=== PATIENT | female | born 1970 | race Caucasian/White ===

== ENCOUNTER 2019-02-19 12:57 | Emergency (ER) | payer SELFPAY ==
--- OUTSIDE RECORDS SUMMARY | 2019-02-19 12:59 | XMS REPORT ---
:1970 [facility] Address [address] [place] [address] Dr. Vasquez [address] [place] [id number] Care Team Providers Name Role Phone Unavailable Unavailable Unavailable Problems This patient has no known problems. Allergies, Adverse Reactions, Alerts This patient has no known allergies or adverse reactions. Medications This patient has no known medications.
[2019-02-19] MEDS ORDERED: NA CHLORIDE 0.9% 1,000 ML IV SCH (13:46)
[2019-02-19] MEDS ORDERED: ONDANSETRON 4 MG/2 ML VIAL IV ONE (13:46)
[2019-02-19] MEDS ORDERED: MORPHINE 4 MG/ML SYR IV ONE (13:46)
[2019-02-19 14:15] LABS: Urine Blood NEGATIVE (NEG); Urine Glucose NEGATIVE (NEG); Urine Protein NEGATIVE (NEG); Urine Specific Gravity 1.005 (1.005-1.030); Urine pH 6.5 (5.0-7.0)
[2019-02-19 14:33] LABS: Absolute Monocytes 0.9 K/uL (0.1-1.3); Absolute Neutrophil 8.7 K/uL (1.8-8.0); Basophils % 1.1 % (0-1.3); Hematocrit 49.9 % (36.0-45.0); Lymphocytes % 16.3 % (15.3-44.8); MPV 8.3 fL (7.6-11.3); Monocytes % 7.1 % (3.3-12.3); RBC Red Blood Cell Count 5.42 M/uL (3.86-4.86)
[2019-02-19 14:49] LABS: Urine Bacteria <20 /HPF (<20); Urine Culture Reflex Order NOT NEEDED; Urine RBC <5 /HPF (NONE SEEN)
[2019-02-19 14:50] LABS: ALT/SGPT 29 U/L (12-78); AST/SGOT 18 U/L (15-37); Albumin 3.9 g/dL (3.4-5.0); Alkaline Phosphatase 81 U/L (45-117); BUN Blood Urea Nitrogen 20 mg/dL (7-18); Bicarbonate 27 mmol/L (21-32); Bilirubin Direct < 0.1 mg/dL (0-0.2); Bilirubin Total 0.3 mg/dL (0.2-1.0); Glucose Level 77 mg/dL (74-106); Lipase 98 U/L (73-393); Potassium 4.1 mmol/L (3.5-5.1); Protein, Total 7.7 g/dL (6.4-8.2); Sodium Level 140 mmol/L (136-145)
[2019-02-19] MEDS ORDERED: MORPHINE 4 MG/ML SYR ONE (15:02)
--- NOTE | 2019-02-19 15:26 | RAD REPORT ---
EXAM DESCRIPTION: CT - Abdomen Pelvis W Contrast - 02/19/2019 3:04 pm CLINICAL HISTORY: Abdominal pain with nausea. COMPARISON: 2006 TECHNIQUE: Computed axial tomography of the abdomen pelvis was obtained. 100 cc Isovue-300 was admin istered intravenously. Oral contrast was not requested which limits evaluation of bowel. All CT scans are performed using dose optimization technique as appropriate and may include automated exposure control or mA/KV adjustment according to patient size. FINDINGS: 3.2 centimeter cyst left lobe liver The Spleen, pancreas, adrenal and kidneys appear unremarkable. There is no evidence of diverticulitis. Small umbilical hernia contains fat Appendix not clearly seen. Evaluation is limited signal lack of oral contrast IMPRESSION: No acute abnormality is displayed.
--- NOTE | 2019-02-19 18:36 | RAD REPORT ---
EXAM DESCRIPTION: CT - Abdomen Pelvis Wo Contrast - 02/19/2019 6:19 pm CLINICAL HISTORY: Abdominal pain COMPARISON: February 19, [address] TECHNIQUE: Computed axial tomography of the abdomen and pelvis was obtained. IV was not requested. O ral contrast was given. Coronal reconstructions performed. All CT scans are performed using dose optimization technique as appropriate and may include automated exposure control or mA/KV adjustment according to patient size. FINDINGS: The evaluation of solid organs and vessels is limited secondary to the lack of contrast a dministration. 3.2 centimeter hepatic cyst Spleen, pancreas, adrenals and kidneys appear grossly normal. The appendix is normal. There is no evidence of diverticulitis. A 13 millimeter cystic structure anterior to the right psoas within the upper pelvis is unchanged fro m 2006 consistent with a benign cyst IMPRESSION: No acute abnormality is displayed.
--- NOTE | 2019-02-19 19:03 | EDPHYS ---
Physician Documentation [facility] Name: Felisha Laird Age: 48 yrs Sex: Female : 1970 Arrival Date: 02/19/2019 Time: 13:00 Bed 20 Private MD: ED Physician Keith Nayak HPI: 02/19 14:00 This 48 yrs old Female presents to ER via Ambulatory with complaints of Right pm1 flank pain. 14:00 The patient presents with pain that is acute. The symptoms are located in the right low pm1 back. Onset: The symptoms/episode began/occurred 4 day(s) ago. The pain radiates to the right inguinal area. Associated signs and symptoms: Pertinent positives: decreased urinary amount with frequency, Pertinent negatives: chest pain, dysuria, fever, sob. The problem was sustained from unknown cause. Modifying factors: The patient symptoms are alleviated by nothing, the patient symptoms are aggravated by nothing. Severity of symptoms: in the emergency department the symptoms are actually worse. The patient has not experienced similar symptoms in the past. The patient has not recently seen a physician. Historical: - Allergies: 13:20 Demerol; ss 13:20 tramadol; ss - PMHx: 13:20 chiari I malformation; High Cholesterol; Hypertension; L inner leg good blood flow, ss outer not good blood flow; Migraines; osteoarthritis; - PSHx: 13:20 ; Left eye surgery; Right finger surgery; ovary lap; toe surg; ss - Immunization history:: Adult Immunizations up to date. - Social history:: Smoking status: Patient uses tobacco products, smokes one-half pack cigarettes per day. - Ebola Screening: : Patient denies exposure to infectious person Patient denies travel to an Ebola-affected area in the 21 days before illness onset. ROS: 14:00 Constitutional: Negative for fever, chills, and weight loss, Eyes: Negative for injury, pm1 pain, redness, and discharge, ENT: Negative for injury, pain, and discharge, Neck: Negative for injury, pain, and swelling, Cardiovascular: Negative for chest pain, palpitations, and edema, Respiratory: Negative for shortness of breath, cough, wheezing, and pleuritic chest pain, Abdomen/GI: Negative for abdominal pain, nausea, vomiting, diarrhea, and constipation. 14:00 MS/Extremity: Negative for injury and deformity, Skin: Negative for injury, rash, and discoloration, Neuro: Negative for headache, weakness, numbness, tingling, and seizure. 14:00 Back: Positive for flank pain, on the right. 14:00 : Positive for flank pain, urinary frequency, small amounts, Negative for vaginal discharge. Exam: 14:00 Constitutional: This is a well developed, well nourished patient who is awake, alert, pm1 and in no acute distress. Head/Face: Normocephalic, atraumatic. Eyes: Pupils equal round and reactive to light, extra-ocular motions intact. Lids and lashes normal. Conjunctiva and sclera are non-icteric and not injected. Cornea within normal limits. Periorbital areas with no swelling, redness, or edema. ENT: Nares patent. No nasal discharge, no septal abnormalities noted. Tympanic membranes are normal and external auditory canals are clear. Oropharynx with no redness, swelling, or masses, exudates, or evidence of obstruction, uvula midline. Mucous membranes moist. Neck: Trachea midline, no thyromegaly or masses palpated, and no cervical lymphadenopathy. Supple, full range of motion without nuchal rigidity, or vertebral point tenderness. No Meningismus. Chest/axilla: Normal chest wall appearance and motion. Nontender with no deformity. No lesions are appreciated. Cardiovascular: Regular rate and rhythm with a normal S1 and S2. No gallops, murmurs, or rubs. Normal PMI, no JVD. No pulse deficits. Respiratory: Lungs have equal breath sounds bilaterally, clear to auscultation and percussion. No rales, rhonchi or wheezes noted. No increased work of breathing, no retractions or nasal flaring. 14:00 Skin: Warm, dry with normal turgor. Normal color with no rashes, no lesions, and no evidence of cellulitis. MS/ Extremity: Pulses equal, no cyanosis. Neurovascular intact. Full, normal range of motion. 14:00 Abdomen/GI: Inspection: abdomen appears normal, Bowel sounds: normal, Palpation: soft, mild abdominal tenderness, in the right lower quadrant, mass, is not appreciated, rebound tenderness, is not appreciated. 14:00 Back: pain, that is mild, of the right low back, normal spinal alignment noted, vertebral tenderness, is not appreciated. 14:00 Neuro: Orientation: is normal, Motor: is normal, moves all fours. Vital Signs: 13:20 BP 160 / 94; Pulse 80; Resp 18; Temp 98.2(O); Pulse Ox 96% on R/A; Weight 81.65 kg; dh3 Height 5 ft. 1 in. (154.94 cm); Pain 8/10; 15:45 BP 157 / 95; Pulse 73; Resp 18; Pulse Ox 99% on R/A; Pain 7/10; em 17:00 BP 141 / 70; Pulse 70; Resp 18; Pulse Ox 99% on R/A; em 18:00 BP 147 / 84; Pulse 76; Resp 18; Pulse Ox 99% ; em 19:10 BP 147 / 87; Pulse 82; Resp 17; Temp 98.4; Pulse Ox 99% ; Pain 6/10; rr5 19:45 BP 141 / 85; Pulse 80; Resp 19; Pulse Ox 99% ; rr5 13:20 Body Mass Index 34.01 (81.65 kg, 154.94 cm) 3 MDM: 13:24 Patient medically screened. pm1 15:40 ED course: Appendix not visualized by radiologist with CT ABD/Pelvis. Patient with pm1 right flank pain radiating to right groin area. WBC 12.0 Therefore I will order PO contrast CT exam to evaluate appendix. 16:33 Data reviewed: vital signs. Data interpreted: Pulse oximetry: on room air is 99 %. pm1 Interpretation: normal. 18:59 ED course: Appendix is normal. Informed patient of incidental 13 mm cyst anterior to pm1 right psoas within right upper pelvis is unchanged from 2006. Patient now reports that her pain started after bending and lifting. Possibly cause musculoskeletal and/or related to cyst . 19:02 Counseling: I had a detailed discussion with the patient and/or guardian regarding: the pm1 historical points, exam findings, and any diagnostic results supporting the discharge/admit diagnosis, lab results, radiology results, the need for outpatient follow up, to return to the emergency department if symptoms worsen or persist or if there are any questions or concerns that arise at home. 02/19 13:27 Order name: Basic Metabolic Panel; Complete Time: 15:02 pm1 02/19 13:27 Order name: CBC with Diff; Complete Time: 15:02 pm1 02/19 13:27 Order name: Creatinine for Radiology; Complete Time: 15:02 pm1 02/19 13:27 Order name: Hepatic Function; Complete Time: 15:02 pm1 02/19 13:27 Order name: Lipase; Complete Time: 15:02 pm1 02/19 13:27 Order name: Urine Microscopic Only; Complete Time: 15:02 pm1 02/19 13:27 Order name: CT Abd/Pelvis - IV Contrast Only; Complete Time: 15:32 pm1 02/19 13:56 Order name: Urine Dipstick--Ancillary (enter results); Complete Time: 15:02 eb 02/19 13:56 Order name: Urine --Ancillary (enter results); Complete Time: 15:02 eb 02/19 15:38 Order name: CT Abd/Pelvis - PO Contrast Only pm1 02/19 15:46 Order name: Abdomen ; Complete Time: 18:43 EDMS 02/19 13:27 Order name: IV Saline Lock; Complete Time: 14:39 pm1 02/19 13:27 Order name: Labs collected and sent; Complete Time: 14:39 pm1 02/19 13:27 Order name: Urine Dipstick-Ancillary (obtain specimen); Complete Time: 13:58 pm1 Administered Medications: 13:45 Drug: NS 0.9% 1000 ml Route: IV; Rate: 1000 ml; Site: left antecubital; ss 13:45 Drug: morphine 4 mg Route: IVP; Site: left antecubital; ss 14:45 Follow up: Response: No adverse reaction; Pain is unchanged, physician notified em 13:45 Drug: Zofran 4 mg Route: IVP; Site: left antecubital; ss 14:45 Follow up: Response: No adverse reaction; Nausea is decreased em 14:53 Drug: morphine 4 mg Route: IVP; Site: left antecubital; em 15:57 Follow up: Response: No adverse reaction; Pain is decreased em Disposition: 02/20 07:29 Co-signature as Attending Physician, Keith Nayak MD. rn Disposition: 02/19/19 19:03 Discharged to Home. Impression: Low back pain. - Condition is Stable. - Discharge Instructions: Back Pain, Adult, Musculoskeletal Pain. - Prescriptions for Naprosyn 500 mg Oral Tablet - take 1 tablet by ORAL route 2 times per day take with food; 30 tablet. Cyclobenzaprine 10 mg Oral Tablet - take 1 tablet by ORAL route every 8 hours As needed; 30 tablet. - Medication Reconciliation Form, Thank You Letter, Antibiotic Education, Prescription Opioid Use form. - Follow up: Emergency Department; When: As needed; Reason: Worsening of condition. Follow up: Private Physician; When: 2 - 3 days; Reason: Recheck today's complaints, Continuance of care, Re-evaluation by your physician. - Problem is new. - Symptoms have improved. Signatures: Dispatcher [employer] EDMS Miguel Barbosa, TURBO OPERATOR TURBO OPERATOR Keith Ann MD MD rn Smirch, Shelby, RN RN ss Ishan Talamantes NP SETTLEMENT CLERK pm1 Fuad Dawkins RN RN rr5 Corrections: (The following items were deleted from the chart) 02/19 19:51 19:03 02/19/2019 19:03 Discharged to Home. Impression: Low back pain. Condition is rr5 Stable. Forms are Medication Reconciliation Form, Thank You Letter, Antibiotic Education, Prescription Opioid Use. Follow up: Emergency Department; When: As needed; Reason: Worsening of condition. Follow up: Private Physician; When: 2 - 3 days; Reason: Recheck today's complaints, Continuance of care, Re-evaluation by your physician. Problem is new. Symptoms have improved. pm1
--- NOTE | 2019-02-19 19:03 | ER ---
Nurse's Notes [facility] Name: Felisha Laird Age: 48 yrs Sex: Female : 1970 Arrival Date: 02/19/2019 Time: 13:00 Bed 20 Private MD: Diagnosis: Low back pain Presentation: 02/19 13:19 Presenting complaint: Patient states: R low back pain x 4 days. Denies injury. ss Transition of care: patient was not received from another setting of care. Onset of symptoms was February 15, 2019. Risk Assessment: Do you want to hurt yourself or someone else? Patient reports no desire to harm self or others. Initial Sepsis Screen: Does the patient meet any 2 criteria? No. Patient's initial sepsis screen is negative. Does the patient have a suspected source of infection? No. Patient's initial sepsis screen is negative. Care prior to arrival: None. 13:19 Method Of Arrival: Ambulatory ss 13:19 Acuity: TESSA 3 ss Historical: - Allergies: 13:20 Demerol; ss 13:20 tramadol; ss - PMHx: 13:20 chiari I malformation; High Cholesterol; Hypertension; L inner leg good blood flow, ss outer not good blood flow; Migraines; osteoarthritis; - PSHx: 13:20 ; Left eye surgery; Right finger surgery; ovary lap; toe surg; ss - Immunization history:: Adult Immunizations up to date. - Social history:: Smoking status: Patient uses tobacco products, smokes one-half pack cigarettes per day. - Ebola Screening: : Patient denies exposure to infectious person Patient denies travel to an Ebola-affected area in the 21 days before illness onset. Screenin:30 Abuse screen: Denies threats or abuse. Nutritional screening: No deficits noted. em Tuberculosis screening: No symptoms or risk factors identified. Fall Risk None identified. Assessment: 13:30 General: Appears in no apparent distress. uncomfortable, Behavior is calm, cooperative, em Denies fever. Pain: Complains of pain in right low back Pain radiates to abdomen Pain currently is 7 out of 10 on a pain scale. Neuro: Level of Consciousness is awake, alert, obeys commands, Oriented to person, place, time, situation. Cardiovascular: Capillary refill < 3 seconds Patient's skin is warm and dry. Respiratory: Airway is patent Respiratory effort is even, unlabored, Respiratory pattern is regular, symmetrical. GI: Abdomen is flat, Bowel sounds present X 4 quads. Abd is soft X 4 quads Abdomen is tender to palpation in abdomen diffusely Reports nausea. : Denies burning with urination. Derm: Skin is intact, is healthy with good turgor, Skin is pink, warm \T\ dry. Musculoskeletal: Capillary refill < 3 seconds, Range of motion: intact in all extremities. 13:32 General: The previous assessment is accurate, call light remains within reach.. ss 14:52 Reassessment: Patient appears in no apparent distress at this time. Patient and/or em family updated on plan of care and expected duration. Pain level reassessed. Patient is alert, oriented x 3, equal unlabored respirations, skin warm/dry/pink. reports medication did not help, rates pain 7/10. 15:46 Reassessment: Patient appears in no apparent distress at this time. Patient and/or em family updated on plan of care and expected duration. Pain level reassessed. Patient is alert, oriented x 3, equal unlabored respirations, skin warm/dry/pink. rates pain 7/10. 17:00 Reassessment: Patient appears in no apparent distress at this time. Patient and/or em family updated on plan of care and expected duration. Pain level reassessed. Patient is alert, oriented x 3, equal unlabored respirations, skin warm/dry/pink. 18:20 Reassessment: Patient appears in no apparent distress at this time. Patient and/or em family updated on plan of care and expected duration. Pain level reassessed. Patient is alert, oriented x 3, equal unlabored respirations, skin warm/dry/pink. wheeled to CT via wheelchair. 19:10 Reassessment: Patient appears in no apparent distress at this time. Patient and/or rr5 family updated on plan of care and expected duration. Pain level reassessed. awaiting for CT result. Neuro: Level of Consciousness is awake, alert, obeys commands, Oriented to person, place, time, situation. Cardiovascular: Capillary refill < 3 seconds Patient's skin is warm and dry. Respiratory: Airway is patent Respiratory effort is even, unlabored, Respiratory pattern is regular, symmetrical. GI: Abdomen is round. : Denies burning with urination. EENT: No signs and/or symptoms were reported regarding the EENT system. Derm: Skin is intact, Skin is pink, warm \T\ dry. Musculoskeletal: Capillary refill < 3 seconds, Range of motion: intact in all extremities, Reports pain in back. 19:50 Reassessment: Patient appears in no apparent distress at this time. Patient is alert, rr5 oriented x 3, equal unlabored respirations, skin warm/dry/pink. discharge instruction given and explained without complaints made. Vital Signs: 13:20 BP 160 / 94; Pulse 80; Resp 18; Temp 98.2(O); Pulse Ox 96% on R/A; Weight 81.65 kg; dh3 Height 5 ft. 1 in. (154.94 cm); Pain 8/10; 15:45 BP 157 / 95; Pulse 73; Resp 18; Pulse Ox 99% on R/A; Pain 7/10; em 17:00 BP 141 / 70; Pulse 70; Resp 18; Pulse Ox 99% on R/A; em 18:00 BP 147 / 84; Pulse 76; Resp 18; Pulse Ox 99% ; em 19:10 BP 147 / 87; Pulse 82; Resp 17; Temp 98.4; Pulse Ox 99% ; Pain 6/10; rr5 19:45 BP 141 / 85; Pulse 80; Resp 19; Pulse Ox 99% ; rr5 13:20 Body Mass Index 34.01 (81.65 kg, 154.94 cm) 3 ED Course: 13:00 Patient arrived in ED. mr 13:17 Ishan Talamantes NP is PHCP. pm1 13:17 Keith Nayak MD is Attending Physician. pm1 13:20 Triage completed. ss 13:20 Arm band placed on right wrist. ss 13:29 Miguel Barbosa LVN is Primary Nurse. em 13:50 Urine collected: clean catch specimen, jessy colored. dh3 14:00 Patient has correct armband on for positive identification. Placed in gown. Bed in low em position. Adult w/ patient. Pulse ox on. NIBP on. 14:00 Initial lab(s) drawn, by me, sent to lab. Inserted saline lock: 22 gauge in left em antecubital area, using aseptic technique. Blood collected. 14:[address] via wheelchair. em2 14:51 Radiology exam delayed due to lab results not completed at this time. (BUN/Creatinine). ls3 15:03 CT completed. Patient tolerated procedure well. Patient moved back from CT. em2 15:32 CT Abd/Pelvis - IV Contrast Only In Process Unspecified. EDMS 18:18 CT completed. Patient tolerated procedure well. Patient moved to CT. Patient moved back pr from CT. 18:21 Abdomen In Process Unspecified. EDMS 19:50 No provider procedures requiring assistance completed. IV discontinued, intact, rr5 bleeding controlled, No redness/swelling at site. Pressure dressing applied. Administered Medications: 13:45 Drug: NS 0.9% 1000 ml Route: IV; Rate: 1000 ml; Site: left antecubital; ss 13:45 Drug: morphine 4 mg Route: IVP; Site: left antecubital; ss 14:45 Follow up: Response: No adverse reaction; Pain is unchanged, physician notified em 13:45 Drug: Zofran 4 mg Route: IVP; Site: left antecubital; ss 14:45 Follow up: Response: No adverse reaction; Nausea is decreased em 14:53 Drug: morphine 4 mg Route: IVP; Site: left antecubital; em 15:57 Follow up: Response: No adverse reaction; Pain is decreased em Outcome: 19:03 Discharge ordered by MD. pm1 19:50 Discharged to home ambulatory, with family. rr5 19:50 Condition: stable 19:50 Discharge instructions given to patient, Instructed on discharge instructions, follow up and referral plans. medication usage, Demonstrated understanding of instructions, follow-up care, medications, Prescriptions given X 2. 19:51 Patient left the ED. rr5 Signatures: Dispatcher [employer] EDME Basilio Ayaka Barbosa, Miguel, LICENSED LOAN OFFICER ASSISTANT LICENSED LOAN OFFICER ASSISTANT em Matilde Murry, GATO RN ss Baltazar Balbuena em2 Ishan Talamantes, DOLORES CAR ICER pm1 Marcelo Sullivan Deanna 3 Drew Suggs 3 Fuad Dawkins, RN RN rr5 Corrections: (The following items were deleted from the chart) 13:22 13:20 Resp 18bpm; Height 5 ft. 1 in.; Pain 8/10; [facility]
[2019-02-19 20:35] VITALS: TEMP 98.2
[2019-02-19 20:37] VITALS: O2SAT 99
[2019-02-19 20:39] VITALS: BP 147/84
== END 2019-02-19 19:51 | disposition home or self-care (01) ==
LOC: ER 12:57
DX: M54.5 Low back pain (principal); G93.5 Compression of brain; E78.00 Pure hypercholesterolemia, unspecified; I10 Essential (primary) hypertension; Z88.5 Allergy status to narcotic agent; F17.210 Nicotine dependence, cigarettes, uncomplicated
CPT/HCPCS: 36415; 74176; 74177; 80048; 80076; 81003; 81015; 81025; 83690; 85025; 96374; 96375; 99284; J2405; J7030; Q9967

== ENCOUNTER 2020-12-11 10:16 | Day surgery (SDC) | payer SELFPAY ==
[2020-12-11] MEDS ORDERED: Ringers Lactate 1,000 ML IV ONE (10:50)
[2020-12-11] MEDS ORDERED: CEFAZOLIN/SWI 1gm 1 GM/10 ML SYR ONE (10:51)
[2020-12-11] MEDS ORDERED: ACETAMINOPHEN 500 MG TAB ONE (11:09)
[2020-12-11 11:31] LABS: Potassium 3.9 mmol/L (3.5-5.1)
[2020-12-11] MEDS ORDERED: LIDOCAINE 1% MPF 5 ML VIAL ONE (14:09)
[2020-12-11] MEDS ORDERED: propofoL 200 MG/20 ML VIAL IV ONE ×2 (14:09→14:55)
[2020-12-11] MEDS ORDERED: MIDAZOLAM HCL 2 MG/2 ML INJ ONE (14:09)
[2020-12-11] MEDS ORDERED: FENTANYL CITR 100 MCG/2 ML ONE (14:09)
[2020-12-11] MEDS ORDERED: BUPIVACAINE 0.25% PF 10 ML VIAL ONE (14:31)
--- NOTE | 2020-12-11 14:45 | P.OP ---
Preoperative diagnosis: Chronic Osteomyelitis of 4th toe of RIGHT foot Postoperative diagnosis: Chronic Osteomyelitis of 4th toe of RIGHT foot Primary procedure: Amputation of 4th Distal phalanx of RIGHT foot Anesthesia: GETA + Local Estimated blood loss: <1cc Specimen: partial toe amputation Findings: osteomyelitis confined to DIP Complications: None Transferred to: Recovery Room Condition: Good
[2020-12-11] MEDS ORDERED: KETOROLAC 30 MG/ML INJ ONE (14:51)
[2020-12-11] MEDS ORDERED: dexAMETHasone 10 MG/ML VIAL ONE (14:51)
[2020-12-11] MEDS ORDERED: ONDANSETRON 4 MG/2 ML VIAL ONE (14:55)
[2020-12-11 16:39] VITALS: BP 123/81; TEMP 97; O2SAT 99
--- NOTE | 2020-12-12 00:52 | OP ---
Date of Procedure: 12/11/2020 Surgeon: Diaz Gaston MD, Preoperative Diagnosis: Chronic osteomyelitis of the fourth toe of the right foot. Postoperative Diagnosis: Chronic osteomyelitis of the fourth toe of the right foot. Procedure Performed: An amputation of the fourth distal phalanx of the right foot. Anesthesia: General endotracheal plus local with 0.25% Marcaine without epinephrine. Estimated Blood Loss: Less than 5 cc. Specimen: Partial toe amputation/distal phalanx. Findings: Osteomyelitis confined to the distal interphalangeal space and distal phalanx. No involve ment of the proximal phalanx. Disposition: The patient transferred to recovery room in good condition. Procedure In Detail: After informed consent was obtained, the patient was brought to the operating r oom, prepped and draped in the usual sterile fashion after adequate anesthesia was achieved. I anest hetized the area around the fourth toe of the right foot. I then marked the area for amputation base d on a plantar flap circumferentially around with a 15 blade. I then used electrocautery to dissect down to the interphalangeal joint. I removed the tendons and soft tissue at this plane and sent the toe off for pathologic examination. Hemostasis was achieved with electrocautery. I then irrigated t he area copiously. There was no evidence osteomyelitis of the proximal interphalangeal joint. As alcala ch, I reapproximated the tissue based on the plantar flap using interrupted 3-0 nylon sutures and a s terile dressing was placed over top. The patient tolerated the procedure well without evidence of co mplication and transferred to PACU in good condition. All counts were correct at the end of the case . TK/MODL Voice ID: [id number] Report ID: [id number]
== END 2020-12-11 17:05 | disposition home or self-care (01) ==
LOC: OR 10:16
PROVIDERS: ATTEND Surgery
PROC: 0Y6V0Z3 Detachment at Right 4th Toe, Low, Open Approach (ICD-10-PCS; principal; 2020-12-11 13:15)
DX: M86.671 Other chronic osteomyelitis, right ankle and foot (principal); F17.210 Nicotine dependence, cigarettes, uncomplicated; I10 Essential (primary) hypertension; Z86.73 Personal history of transient ischemic attack (TIA), and cerebral infarction without residual deficits; Z20.822 Contact with and (suspected) exposure to COVID-19
CPT/HCPCS: 36415; 80048; 88305; 88311; J0690; J1100; J2250; J2405; J2704; J3010; J7120; U0002

== ENCOUNTER → 2023-10-16 | Emergency (ER) | payer OTHER ==
[~2023-10-16] MED LIST: HYDROCODONE/APAP 7.5/325 MG TAB ONE; IBUPROFEN 200 MG TAB PO ONE
--- OUTSIDE RECORDS SUMMARY | 2023-10-16 15:58 | XMS REPORT | Continuity of Care Document ---
Author Name Unknown Address [address] [facility]. [address] [place] [address] [facility] Address [address] [facility] [address] [place] [address] Care Team Providers Care Mitten Stitcher Name Role Phone Rupesh Braxton Primary Care Physician [phone] CAMDEN SINGH Attending Clinician Unavailable Rupesh Braxton Attending Clinician [phone] Doctor Unassigned, [place] Attending Clinician U navailable RUPESH XIONG Attending Clinician Unavailable Melida Sommer RN Attending Clinician UnavailShan Priest MD Attending Clinician [phone] SHAN GONCALVES Attending Clinician UnavailMARIN Fernandez Attending Clinician Unavailable BOBBY HERNANDEZ Attending Clinician Unavailable Bobby Alexander Attending Clinician [phone] Unknown, Attending Attending Clinician Unavailab DAVID Stark Attending Clinician Unavailjuvenal Singh MD, [place] Attending Clinician [phone] Rachel Conklin RN Attending Clinician Unav Moises Herrera Attending Clinician [phone] MOISES OLEA Attending Clinician Unavailable Gunnar TOHRNTON, Marin Attending Clinician [phone] [facility] Attending Clinician Unavailable Myrtle THORNTON, Alma Delia Attending Clinician Unavailab liliya Cm, Maximil[facility] Main Attending Clinician UnavailSHAN Priest Attending Clinician Unavailkyle Buckner MD, Izaiah Attending Clinician [phone] Marizol Lenz Attending Clinician Unavaila khushboo Stauffer CLERICAL RECEPTIONIST, Alayna L Attending Clinician [phone] NIMSIRI ALAYNA Sherlyn Attending Clinician Unavailable Meliza Sharp Attending Clinician U THIAGO Giron Attending Clinician Unavailable Mila CAST, Niecy Govea Attending Clinician AXEL Ariza Attending Clinician Unavailable AXEL STOCKTON Attending Clinician Unavailable CHRISS GUALLPA Attending Clinician Unavail able CHRISS GUALLPA Attending Clinician Unavail able Nydia Mckay Attending Clinician [phone] Chriss Guallpa MD Attending Clinician [phone] Lab, Nirmal - Jayro Attending Clinician Unavailable JACINTO MANTILLA Attending Clinician UnavailBerna SHARP, Jaxson Attending Clinician [phone] Alysha Oropeza Attending Clinician [phone] JAXSON SIMMS Attending Clinician Unavailable Freddy THORNTON, Benny Lindo Attending Clinician [phone] Jeferson MCNEIL, [facility] Attending Clinician [phone] UNKNOWN, ATTENDING Attending Clinician Unavailab LANETTE Lawton Attending Clinician Unavailable Laentte Augustin Attending Clinician [phone] ADÁN RIOS Attending Clinician Unavailable TONIA ASKEW Attending Clinician UnavailTonia Barahona MD Attending Clinician [phone] Fernando Henderson Attending Clinician [phone] FERNANDO AL Attending Clinician Unavailable Elver Carter MD Attending Clinician Nirmal Klein Attending Clinician UnavailSidra Castañeda Attending Clinician [phone] SIDRA BENITES Attending Clinician Unavailable Care, Hima Primary Attending Clinician Unavailkyle Hdz RN, Ayaka Childs Attending Clinician [phone] Robyn CORONADOW, Madhu Lee Attending Clinician Unavail able Lena Tanner Attending Clinician [phone] HUNG BILLINGS Attending Clinician Unavailable Ishan Martinez MD Attending Clinician [phone] Tyesha THORNTON, Hung Attending Clinician [phone] RUPESH XIONG Admitting Clinician Unavailable ALAYNA STAUFFER Admitting Clinician Unavailable MARIN MAHER Admitting Clinician Unavailable FERNANDO AL Admitting Clinician Unavailable HUNG BILLINGS Admitting Clinician Unavailable Tyesha THORNTON, Hung Admitting Clinician [phone] Payers Payer Name Policy Type Policy Number Effective Date Expirati on Date Source [facility] DUAL COMPLETE [id number] 2023 00:00:00 [place] [id number] 2022 00:00:00 MEDICAID 365 VENDOR [id number] 2021 00:00:00 2021 00:00:00 Problems Condition Name Condition Details Condition Category Status Onset Date Resolution Date Last Treatment Date Treating Clinician Comments Source Myelofibro sis Myelofibro sis Disease Active 4-21 00:00: 00 [facility] JAK2 gene mutation JAK2 gene mutation Disease Active 9-20 00:00: 00 [facility] Left-sided weakness Left-sided weakness Disease Active - 00:00: 00 [facility] Weakness of right upper extremity Weakness of right upper extremity Disease Active 9- 00:00: 00 [facility] Weakness of right upper extremity Weakness of right upper extremity Disease Active - 00:00: 00 [facility] Elevated platelet count Elevated platelet count Disease Active 3-24 00:00: 00 [facility] Neuropathy Neuropathy Disease Active 2020-09 0-12 00:00: 00 [facility] Obesity (BMI 30-39.9) Obesity (BMI 30-39.9) Disease Active 01-26 00:00: 00 [facility] Left sided numbness Left sided numbness Disease Active 01-25 00:00: 00 [facility] Osteoarthr osis Osteoarthr osis Disease Active 10-09 00:00: 00 [facility] Migraine Migraine Disease Active 10-09 00:00: 00 [facility] Hyperchole sterolemia Hyperchole sterolemia Disease Active 10-09 00:00: 00 [facility] 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 Disease Active 12-01 00:00: 00 [facility] Blindness of left eye Blindness of left eye Disease Active 12-01 00:00: 00 [facility] Essential thrombocyt hemia Essential thrombocyt hemia Disease Active 12-01 00:00: 00 [facility] Hypertensi ve disorder Hypertensi ve disorder Disease Active 12-01 00:00: 00 [facility] COPD exacerbati on COPD exacerbati on Disease Active 11-27 00:00: 00 [facility] Pneumonia Pneumonia Disease Active 11-26 00:00: 00 [facility] Allergies, Adverse Reactions, Alerts Allergy Name Allergy Type Status Severity Reaction(s) Onset Date Inactive Date Treating Clinician Comments Source Adhesive Propensi ty to adverse reaction s Active Other - See comments 01-25 00:00: 00 Peeling skin [facility] ADHESIVE Drug Class Active Other-Cmnt 01-25 00:00: 00 [facility] Adhesive Propensi ty to adverse reaction s Active Other - See comments 01-25 00:00: 00 Peeling skin [facility] TRAMADOL DRUG INGREDI Active Hallucinates 12-20 00:00: 00 [facility] Tramadol Propensi ty to adverse reaction s Active Hallucinatio ns 12-20 00:00: 00 [facility] MEPERIDI NE HCL DRUG INGREDI Active Unknown-Cmnt 2014-09 00:00: 00 [facility] Meperidi ne Hcl Propensi ty to adverse reaction s Active Unknown - See comments 2014-09 00:00: 00 VIOLENT [facility] Social History Social Habit Start Date Stop Date Quantity Comments Source Gender identity [facility] Sexual orientation [facility] Alcohol intake 2023-04-09 00:00:00 2023-04-09 00:00:00 Current non-drinker of alcohol (finding) [facility] Exposure to SARS-CoV-2 (event) 2023-02-07 00:00:00 2023-02-17 07:15:00 Not sure [facility] History of Social function 2022-12-02 00:00:00 2022-12-02 00:00:00 [facility] Cigarettes smoked current (pack per day) - Reported 2022-04-02 00:00:00 2022-04-02 00:00:00 [facility] Cigarette pack-years 2022-04-02 00:00:00 2022-04-02 00:00:00 [facility] Tobacco use and exposure 2022-04-02 00:00:00 2022-04-02 00:00:00 Smokeless tobacco non-user [facility] Tobacco Comment 2022-04-02 00:00:00 2022-04-02 00:00:00 Per pt she is currently using Chantix. [facility] History of tobacco use 1981-10-02 00:00:00 2021-01-13 00:00:00 Cigarette Smoker [facility] Sex Assigned At 1970 00:00:00 1970 00:00:00 [facility] Smoking Status Start Date Stop Date Source Ex-smoker 2022-04-02 00:00:00 2022-04-02 00:00:00 [facility] Medications Ordered Medication Name Filled Medication Name Start Date Stop Date Current Medication? Ordering Clinician Indication Dosage Frequency Signature (SIG) Comments Components Source amLODIPine 10 mg tablet 09-25 00:00: 00 Yes [id number] 10mg Take 1 tablet by mouth in the morning. [facility] tra[facility] tablet 2022-0 7-10 00:00: 00 03-30 04:59 :00 No [id number] 50mg Take 1 tablet by mouth every 6 (six) hours as needed for Pain (scale 7-10) for up to 5 days. Indication s: acute pain [facility] traMADoL 50 mg tablet 2022-0 7-10 00:00: 00 03-30 04:59 :00 No [id number] 50mg Take 1 tablet by mouth every 6 (six) hours as needed for Pain (scale 7-10) for up to 5 days. Indication s: acute pain [facility] traMAD[facility] mg tablet 2022-0 7-10 00:00: 00 03-30 04:59 :00 No [id number] 50mg Take 1 tablet by mouth every 6 (six) hours as needed for Pain (scale 7-10) for up to 5 days. Indication s: acute pain [facility] traMAD[facility] mg tablet 2022-0 7-10 00:00: 00 03-30 04:59 :00 No [id number] 50mg Take 1 tablet by mouth every 6 (six) hours as needed for Pain (scale 7-10) for up to 5 days. Indication s: acute pain [facility] traMADoL 50 mg tablet 2022-0 7-10 00:00: 00 03-30 04:59 :00 No [id number] 50mg Take 1 tablet by mouth every 6 (six) hours as needed for Pain (scale 7-10) for up to 5 days. Indication s: acute pain [facility] losartan 50 mg tablet 0 24 00:00: 00 Yes [id number] 50mg Take 1 tablet by mouth in the morning. [facility] atorvastati n 20 mg tablet 0 24 00:00: 00 Yes [id number] 20mg Take 1 tablet by mouth at bedtime. [facility] amLODIPine 10 mg tablet 0 24 00:00: 00 Yes [id number] 10mg Take 1 tablet by mouth in the morning. [facility] topiramate (TOPAMAX) 50 mg tablet 0 24 00:00: 00 Yes [id number] 50mg Take 1 tablet by mouth in the morning. [facility] metoprolol succinate XL 25 mg 24 hr tablet 2022-0 -24 00:00: 00 Yes [id number] 25mg Take 1 tablet by mouth in the morning. [facility] losartan 50 mg tablet 2022-0 -24 00:00: 00 Yes [id number] 50mg Take 1 tablet by mouth in the morning. [facility] atorvastati n 20 mg tablet 2022-0 -24 00:00: 00 Yes [id number] 20mg Take 1 tablet by mouth at bedtime. [facility] amLODIPine 10 mg tablet 2022-0 -24 00:00: 00 Yes [id number] 10mg Take 1 tablet by mouth in the morning. [facility] topiramate (TOPAMAX) 50 mg tablet 2022-0 24 00:00: 00 Yes [id number] 50mg Take 1 tablet by mouth in the morning. [facility] metoprolol succinate XL 25 mg 24 hr tablet 2022-0 24 00:00: 00 Yes [id number] 25mg Take 1 tablet by mouth in the morning. [facility] losartan 50 mg tablet 2022-0 24 00:00: 00 Yes [id number] 50mg Take 1 tablet by mouth in the morning. [facility] atorvastati n 20 mg tablet 2022-0 24 00:00: 00 Yes [id number] 20mg Take 1 tablet by mouth at bedtime. [facility] amLODIPine 10 mg tablet 2022-0 24 00:00: 00 Yes [id number] 10mg Take 1 tablet by mouth in the morning. [facility] topiramate (TOPAMAX) 50 mg tablet 2022-0 -24 00:00: 00 Yes [id number] 50mg Take 1 tablet by mouth in the morning. [facility] metoprolol succinate XL 25 mg 24 hr tablet 3-0 5-24 00:00: 00 Yes [id number] 25mg Take 1 tablet by mouth in the morning. [facility] losartan 50 mg tablet 2022-0 5-24 00:00: 00 Yes [id number] 50mg Take 1 tablet by mouth in the morning. [facility] atorvastati n 20 mg tablet 2022-0 5-24 00:00: 00 Yes [id number] 20mg Take 1 tablet by mouth at bedtime. [facility] amLODIPine 10 mg tablet 2022-0 5-24 00:00: 00 Yes [id number] 10mg Take 1 tablet by mouth in the morning. [facility] topiramate (TOPAMAX) 50 mg tablet 2022-0 5-24 00:00: 00 Yes [id number] 50mg Take 1 tablet by mouth in the morning. [facility] metoprolol succinate XL 25 mg 24 hr tablet 2022-0 5-24 00:00: 00 Yes [id number] 25mg Take 1 tablet by mouth in the morning. [facility] losartan 50 mg tablet 2022-0 -24 00:00: 00 Yes [id number] 50mg Take 1 tablet by mouth in the morning. [facility] atorvastati n 20 mg tablet 2022-0 -24 00:00: 00 Yes [id number] 20mg Take 1 tablet by mouth at bedtime. [facility] amLODIPine 10 mg tablet 2022-0 -24 00:00: 00 Yes [id number] 10mg Take 1 tablet by mouth in the morning. [facility] topiramate (TOPAMAX) 50 mg tablet 2022-0 24 00:00: 00 Yes [id number] 50mg Take 1 tablet by mouth in the morning. [facility] metoprolol succinate XL 25 mg 24 hr tablet 2022-0 -24 00:00: 00 Yes [id number] 25mg Take 1 tablet by mouth in the morning. [facility] losartan 50 mg tablet 3-0 5-24 00:00: 00 Yes [id number] 50mg Take 1 tablet by mouth in the morning. [facility] atorvastati n 20 mg tablet 3-0 5-24 00:00: 00 Yes [id number] 20mg Take 1 tablet by mouth at bedtime. [facility] amLODIPine 10 mg tablet 2023-0 5-24 00:00: 00 Yes [id number] 10mg Take 1 tablet by mouth in the morning. [facility] topiramate (TOPAMAX) 50 mg tablet 2022-0 -24 00:00: 00 Yes [id number] 50mg Take 1 tablet by mouth in the morning. [facility] metoprolol succinate XL 25 mg 24 hr tablet 2022-0 -24 00:00: 00 Yes [id number] 25mg Take 1 tablet by mouth in the morning. [facility] losartan 50 mg tablet 2022-0 24 00:00: 00 Yes [id number] 50mg Take 1 tablet by mouth in the morning. [facility] atorvastati n 20 mg tablet 2022-0 -24 00:00: 00 Yes [id number] 20mg Take 1 tablet by mouth at bedtime. [facility] amLODIPine 10 mg tablet 2022-0 -24 00:00: 00 Yes [id number] 10mg Take 1 tablet by mouth in the morning. [facility] topiramate (TOPAMAX) 50 mg tablet 2022-0 24 00:00: 00 Yes [id number] 50mg Take 1 tablet by mouth in the morning. [facility] metoprolol succinate XL 25 mg 24 hr tablet 2022-0 24 00:00: 00 Yes [id number] 25mg Take 1 tablet by mouth in the morning. [facility] losartan 50 mg tablet 2022-0 24 00:00: 00 Yes [id number] 50mg Take 1 tablet by mouth in the morning. [facility] atorvastati n 20 mg tablet 2022-0 -24 00:00: 00 Yes [id number] 20mg Take 1 tablet by mouth at bedtime. [facility] amLODIPine 10 mg tablet 2022-0 -24 00:00: 00 Yes [id number] 10mg Take 1 tablet by mouth in the morning. [facility] topiramate (TOPAMAX) 50 mg tablet 3-0 5-24 00:00: 00 Yes [id number] 50mg Take 1 tablet by mouth in the morning. [facility] metoprolol succinate XL 25 mg 24 hr tablet 2022-0 24 00:00: 00 Yes [id number] 25mg Take 1 tablet by mouth in the morning. [facility] losartan 50 mg tablet 2022-0 -24 00:00: 00 Yes [id number] 50mg Take 1 tablet by mouth in the morning. [facility] atorvastati n 20 mg tablet 3-0 -24 00:00: 00 Yes [id number] 20mg Take 1 tablet by mouth at bedtime. [facility] amLODIPine 10 mg tablet 2022-0 24 00:00: 00 Yes [id number] 10mg Take 1 tablet by mouth in the morning. [facility] topiramate (TOPAMAX) 50 mg tablet 2022-0 -24 00:00: 00 Yes [id number] 50mg Take 1 tablet by mouth in the morning. [facility] metoprolol succinate XL 25 mg 24 hr tablet 2022-0 24 00:00: 00 Yes [id number] 25mg Take 1 tablet by mouth in the morning. [facility] losartan 50 mg tablet 2022-0 24 00:00: 00 Yes [id number] 50mg Take 1 tablet by mouth in the morning. [facility] atorvastati n 20 mg tablet 2022-0 24 00:00: 00 Yes [id number] 20mg Take 1 tablet by mouth at bedtime. [facility] amLODIPine 10 mg tablet 2022-0 24 00:00: 00 Yes [id number] 10mg Take 1 tablet by mouth in the morning. [facility] topiramate (TOPAMAX) 50 mg tablet 2022-0 24 00:00: 00 Yes [id number] 50mg Take 1 tablet by mouth in the morning. [facility] metoprolol succinate XL 25 mg 24 hr tablet 2022-0 5-24 00:00: 00 Yes [id number] 25mg Take 1 tablet by mouth in the morning. [facility] losartan 50 mg tablet 3-0 -24 00:00: 00 Yes [id number] 50mg Take 1 tablet by mouth in the morning. [facility] atorvastati n 20 mg tablet 2022-0 24 00:00: 00 Yes [id number] 20mg Take 1 tablet by mouth at bedtime. [facility] amLODIPine 10 mg tablet 2022-0 -24 00:00: 00 Yes [id number] 10mg Take 1 tablet by mouth in the morning. [facility] topiramate (TOPAMAX) 50 mg tablet 2022-0 24 00:00: 00 Yes [id number] 50mg Take 1 tablet by mouth in the morning. [facility] metoprolol succinate XL 25 mg 24 hr tablet 2022-0 24 00:00: 00 Yes [id number] 25mg Take 1 tablet by mouth in the morning. [facility] losartan 50 mg tablet 2022-0 -24 00:00: 00 Yes [id number] 50mg Take 1 tablet by mouth in the morning. [facility] atorvastati n 20 mg tablet 2022-0 24 00:00: 00 Yes [id number] 20mg Take 1 tablet by mouth at bedtime. [facility] amLODIPine 10 mg tablet 2022-0 24 00:00: 00 Yes [id number] 10mg Take 1 tablet by mouth in the morning. [facility] topiramate (TOPAMAX) 50 mg tablet 2022-0 24 00:00: 00 Yes [id number] 50mg Take 1 tablet by mouth in the morning. [facility] metoprolol succinate XL 25 mg 24 hr tablet 2022-0 24 00:00: 00 Yes [id number] 25mg Take 1 tablet by mouth in the morning. [facility] losartan 50 mg tablet 2022-0 24 00:00: 00 Yes [id number] 50mg Take 1 tablet by mouth in the morning. [facility] atorvastati n 20 mg tablet 2022-0 -24 00:00: 00 Yes [id number] 20mg Take 1 tablet by mouth at bedtime. [facility] amLODIPine 10 mg tablet 2022-0 -24 00:00: 00 Yes [id number] 10mg Take 1 tablet by mouth in the morning. [facility] topiramate (TOPAMAX) 50 mg tablet 0 24 00:00: 00 Yes [id number] 50mg Take 1 tablet by mouth in the morning. [facility] metoprolol succinate XL 25 mg 24 hr tablet 0 24 00:00: 00 Yes [id number] 25mg Take 1 tablet by mouth in the morning. [facility] losartan 50 mg tablet 0 24 00:00: 00 Yes [id number] 50mg Take 1 tablet by mouth in the morning. [facility] atorvastati n 20 mg tablet 0 24 00:00: 00 Yes [id number] 20mg Take 1 tablet by mouth at bedtime. [facility] amLODIPine 10 mg tablet 0 24 00:00: 00 Yes [id number] 10mg Take 1 tablet by mouth in the morning. [facility] topiramate (TOPAMAX) 50 mg tablet 0 24 00:00: 00 Yes [id number] 50mg Take 1 tablet by mouth in the morning. [facility] metoprolol succinate XL 25 mg 24 hr tablet 0 24 00:00: 00 Yes [id number] 25mg Take 1 tablet by mouth in the morning. [facility] losartan 50 mg tablet 0 24 00:00: 00 Yes [id number] 50mg Take 1 tablet by mouth in the morning. [facility] atorvastati n 20 mg tablet 0 24 00:00: 00 Yes [id number] 20mg Take 1 tablet by mouth at bedtime. [facility] topiramate (TOPAMAX) 50 mg tablet 0 24 00:00: 00 Yes [id number] 50mg Take 1 tablet by mouth in the morning. [facility] amLODIPine 10 mg tablet 0 24 00:00: 00 09-25 00:00 :00 No [id number] 10mg Take 1 tablet by mouth in the morning. [facility] traMADoL 50 mg tablet 0 4-12 00:00: 00 01-02 04:59 :00 No [id number] 50mg Take 1 tablet by mouth every 6 (six) hours as needed for Pain (scale 4-6) for up to 7 days. Indication s: acute pain [facility] traMADoL 50 mg tablet 2022-0 4-12 00:00: 00 01-02 04:59 :00 No [id number] 50mg Take 1 tablet by mouth every 6 (six) hours as needed for Pain (scale 4-6) for up to 7 days. Indication s: acute pain [facility] traMADoL 50 mg tablet 2022-0 4-12 00:00: 00 01-02 04:59 :00 No [id number] 50mg Take 1 tablet by mouth every 6 (six) hours as needed for Pain (scale 4-6) for up to 7 days. Indication s: acute pain [facility] lidocaine PF 2% (XYLOCAINE- MPF) injection 200 mg 12-05 15:00: 00 12-05 18:08 :00 No [id number] 200mg [facility] lidocaine PF 2% (XYLOCAINE- MPF) injection 200 mg 12-05 15:00: 00 12-05 18:08 :00 No [id number] 200mg 200 mg, Injection, ONCE NOW, 1 dose, On Priyanka 12/05/22 at 1000, Routine [facility] lidocaine PF 2% (XYLOCAINE- MPF) injection 200 mg 12-05 15:00: 00 12-05 18:08 :00 No [id number] 200mg [facility] lidocaine PF 2% (XYLOCAINE- MPF) injection 200 mg 12-05 15:00: 00 12-05 18:08 :00 No [id number] 200mg 200 mg, Injection, ONCE NOW, 1 dose, On Priyanka 12/05/22 at 1000, Routine [facility] lidocaine PF 2% (XYLOCAINE- MPF) injection 200 mg 12-05 15:00: 00 12-05 18:08 :00 No [id number] 200mg [facility] lidocaine PF 2% (XYLOCAINE- MPF) injection 200 mg 12-05 15:00: 00 12-05 18:08 :00 No [id number] 200mg 200 mg, Injection, ONCE NOW, 1 dose, On Fri12/05/22 at 1000, Routine [facility] lidocaine PF 2% (XYLOCAINE- MPF) injection 200 mg 12-05 15:00: 00 12-05 18:08 :00 No [id number] 200mg [facility] lidocaine PF 2% (XYLOCAINE- MPF) injection 200 mg 12-05 15:00: 00 12-05 18:08 :00 No [id number] 200mg 200 mg, Injection, ONCE NOW, 1 dose, On Fri12/05/22 at 1000, Routine [facility] lidocaine PF 2% (XYLOCAINE- MPF) injection 200 mg 12-05 14:45: 00 12-05 14:57 :00 No [id number] 200mg [facility] lidocaine PF 2% (XYLOCAINE- MPF) injection 200 mg 12-05 14:45: 00 12-05 14:57 :00 No [id number] 200mg 200 mg, Injection, ONCE NOW, 1 dose, On Priyanka 12/05/22 at 0945, Routine [facility] lidocaine PF 2% (XYLOCAINE- MPF) injection 200 mg 12-05 14:45: 00 12-05 14:57 :00 No [id number] 200mg [facility] lidocaine PF 2% (XYLOCAINE- MPF) injection 200 mg 12-05 14:45: 00 12-05 14:57 :00 No [id number] 200mg 200 mg, Injection, ONCE NOW, 1 dose, On Fri12/05/22 at 0945, Routine [facility] lidocaine PF 2% (XYLOCAINE- MPF) injection 200 mg 12-05 14:45: 00 12-05 14:57 :00 No [id number] 200mg [facility] lidocaine PF 2% (XYLOCAINE- MPF) injection 200 mg 12-05 14:45: 00 12-05 14:57 :00 No [id number] 200mg 200 mg, Injection, ONCE NOW, 1 dose, On [facility] 12/05/22 at 0945, Routine [facility] lidocaine PF 2% (XYLOCAINE- MPF) injection 200 mg 12-05 14:45: 00 12-05 14:57 :00 No [id number] [facility] lidocaine PF 2% (XYLOCAINE- MPF) injection 200 mg 12-05 14:45: 00 12-05 14:57 :00 No [id number] 200mg 200 mg, Injection, ONCE NOW, 1 dose, On [facility] 12/05/22 at 0945, Routine [facility] traZODone 100 mg tablet 2022-0 12-04 00:00: 00 Yes [facility] traZODone 100 mg tablet 3-0 12-04 00:00: 00 Yes [facility] traZODone 100 mg tablet 3-0 12-04 00:00: 00 Yes [facility] traZODone 100 mg tablet 3-0 12-04 00:00: 00 Yes [facility] traZODone 100 mg tablet 2022-0 12-04 00:00: 00 Yes [facility] traZODone 100 mg tablet 3-0 12-04 00:00: 00 Yes [facility] traZODone 100 mg tablet 3-0 12-04 00:00: 00 Yes [facility] traZODone 100 mg tablet 3-0 12-04 00:00: 00 Yes [facility] traZODone 100 mg tablet 3-0 12-04 00:00: 00 Yes [facility] traZODone 100 mg tablet 3-0 12-04 00:00: 00 Yes [facility] traZODone 100 mg tablet 3-0 12-04 00:00: 00 Yes [facility] traZODone 100 mg tablet 3-0 22 00:00: 00 Yes [facility] [facility] traZODone 100 mg tablet 3-0 22 00:00: 00 Yes [facility] traZODone 100 mg tablet 3-0 22 00:00: 00 Yes [facility] traZODone 100 mg tablet 3-0 22 00:00: 00 Yes [facility] traZODone 100 mg tablet 3-0 22 00:00: 00 Yes [facility] traZODone 100 mg tablet 3-0 22 00:00: 00 Yes [facility] traZODone 100 mg tablet 3-0 22 00:00: 00 Yes [facility] traZODone 100 mg tablet 3-0 12-04 00:00: 00 Yes [facility] traZODone 100 mg tablet 3-0 22 00:00: 00 Yes [facility] traZODone 100 mg tablet 3-0 12-04 00:00: 00 Yes [facility] traZODone 100 mg tablet 3-0 22 00:00: 00 Yes [facility] traZODone 100 mg tablet 3-0 22 00:00: 00 Yes [facility] traZODone 100 mg tablet 3-0 22 00:00: 00 Yes [facility] traZODone 100 mg tablet 3-0 22 00:00: 00 Yes [facility] traZODone 100 mg tablet 3-0 22 00:00: 00 Yes [facility] traZODone 100 mg tablet 3-0 -22 00:00: 00 Yes [facility] traZODone 100 mg tablet 3-0 -22 00:00: 00 Yes [facility] traZODone 100 mg tablet 3-0 -22 00:00: 00 Yes [facility] traZODone 100 mg tablet 12-04 00:00: 00 Yes [facility] traZODone 100 mg tablet 0 12-04 00:00: 00 Yes [facility] traZODone 100 mg tablet 12-04 00:00: 00 Yes [facility] traZODone 100 mg tablet 12-04 00:00: 00 Yes [facility] traZODone 100 mg tablet 12-04 00:00: 00 Yes [facility] traZODone 100 mg tablet 12-04 00:00: 00 Yes [facility] traZODone 100 mg tablet 12-04 00:00: 00 Yes [facility] iopamidol (ISOVUE 370-500 mL) injection 80 mL 09-19 21:30: 00 09-19 21:27 :00 No [id number] 80mL 80 mL, Intravenou s, ONCE, 1 dose, On Priyanka 09/19/22 at 1530, Routine [facility] nitroglycer in (NITROSTAT) sublingual tablet 0.8 mg 09-19 21:20: 00 09-19 21:21 :00 No [id number] .8mg 0.8 mg, Sublingual , ONCE, 1 dose, On Priyanka 09/19/22 at 1530, Routine [facility] metoprolol tartrate (LOPRESSOR) tablet 50 mg 09-19 20:18: 00 09-19 20:20 :00 No [id number] 50mg 50 mg, Oral, ONCE, 1 dose, On Priyanka 09/19/22 at 1430, Routine [facility] metoprolol tartrate (LOPRESSOR) tablet 100 mg 09-19 19:37: 00 09-19 19:38 :00 No [id number] 100mg 100 mg, Oral, ONCE, 1 dose, On Priyanka 09/19/22 at 1345, Routine [facility] nitroglycer in 0.4 mg sublingual tablet 2021-09 2-20 00:00: [id number] 1 tablet under the tongue every 5 (five) minutes as needed for Chest pain. [facility] nitroglycer in 0.4 mg sublingual tablet 2021-09 00:00: [id number] 1 tablet under the tongue every 5 (five) minutes as needed for Chest pain. [facility] nitroglycer in 0.4 mg sublingual tablet 2021-09 00:00: [id number] 1 tablet under the tongue every 5 (five) minutes as needed for Chest pain. [facility] nitroglycer in 0.4 mg sublingual tablet 2021-09 00:00: [id number] 1 tablet under the tongue every 5 (five) minutes as needed for Chest pain. [facility] nitroglycer in 0.4 mg sublingual tablet 2021-09 00:00: [id number] 1 tablet under the tongue every 5 (five) minutes as needed for Chest pain. [facility] nitroglycer in 0.4 mg sublingual tablet 2021-09 00:00: [id number] 1 tablet under the tongue every 5 (five) minutes as needed for Chest pain. [facility] nitroglycer in 0.4 mg sublingual tablet 2021-09 00:00: [id number] 1 tablet under the tongue every 5 (five) minutes as needed for Chest pain. [facility] nitroglycer in 0.4 mg sublingual tablet 2021-09 00:00: [id number] 1 tablet under the tongue every 5 (five) minutes as needed for Chest pain. [facility] nitroglycer in 0.4 mg sublingual tablet 2021-09 00:00: [id number] 1 tablet under the tongue every 5 (five) minutes as needed for Chest pain. [facility] nitroglycer in 0.4 mg sublingual tablet 2021-09 00:00: [id number] 1 tablet under the tongue every 5 (five) minutes as needed for Chest pain. [facility] nitroglycer in 0.4 mg sublingual tablet 2021-09 00:00: [id number] 1 tablet under the tongue every 5 (five) minutes as needed for Chest pain. [facility] nitroglycer in 0.4 mg sublingual tablet 2021-09 00:00: [id number] 1 tablet under the tongue every 5 (five) minutes as needed for Chest pain. [facility] nitroglycer in 0.4 mg sublingual tablet 2021-09 00:00: [id number] 1 tablet under the tongue every 5 (five) minutes as needed for Chest pain. [facility] nitroglycer in 0.4 mg sublingual tablet 2021-09 00:00: [id number] 1 tablet under the tongue every 5 (five) minutes as needed for Chest pain. [facility] nitroglycer in 0.4 mg sublingual tablet 2021-09 00:00: [id number] 1 tablet under the tongue every 5 (five) minutes as needed for Chest pain. [facility] nitroglycer in 0.4 mg sublingual tablet 2021-09 00:00: [id number] 1 tablet under the tongue every 5 (five) minutes as needed for Chest pain. [facility] nitroglycer in 0.4 mg sublingual tablet 2021-09 00:00: [id number] 1 tablet under the tongue every 5 (five) minutes as needed for Chest pain. [facility] nitroglycer in 0.4 mg sublingual tablet 2021-09 00:00: [id number] 1 tablet under the tongue every 5 (five) minutes as needed for Chest pain. [facility] nitroglycer in 0.4 mg sublingual tablet 2021-09 00:00: [id number] 1 tablet under the tongue every 5 (five) minutes as needed for Chest pain. [facility] nitroglycer in 0.4 mg sublingual tablet 2021-09 00:00: [id number] 1 tablet under the tongue every 5 (five) minutes as needed for Chest pain. [facility] nitroglycer in 0.4 mg sublingual tablet 2021-09 00:00: [id number] 1 tablet under the tongue every 5 (five) minutes as needed for Chest pain. [facility] nitroglycer in 0.4 mg sublingual tablet 2021-09 00:00: [id number] 1 tablet under the tongue every 5 (five) minutes as needed for Chest pain. [facility] nitroglycer in 0.4 mg sublingual tablet 2021-09 00:00: [id number] 1 tablet under the tongue every 5 (five) minutes as needed for Chest pain. [facility] nitroglycer in 0.4 mg sublingual tablet 2021-09 00:00: [id number] 1 tablet under the tongue every 5 (five) minutes as needed for Chest pain. [facility] nitroglycer in 0.4 mg sublingual tablet 2021-09 00:00: [id number] 1 tablet under the tongue every 5 (five) minutes as needed for Chest pain. [facility] nitroglycer in 0.4 mg sublingual tablet 2021-09 00:00: [id number] 1 tablet under the tongue every 5 (five) minutes as needed for Chest pain. [facility] nitroglycer in 0.4 mg sublingual tablet 2021-09 00:00: [id number] 1 tablet under the tongue every 5 (five) minutes as needed for Chest pain. [facility] nitroglycer in 0.4 mg sublingual tablet 2021-09 00:00: [id number] 1 tablet under the tongue every 5 (five) minutes as needed for Chest pain. [facility] nitroglycer in 0.4 mg sublingual tablet 2021-09 00:00: [id number] 1 tablet under the tongue every 5 (five) minutes as needed for Chest pain. [facility] nitroglycer in 0.4 mg sublingual tablet 2021-09 00:00: [id number] 1 tablet under the tongue every 5 (five) minutes as needed for Chest pain. [facility] nitroglycer in 0.4 mg sublingual tablet 2021-09 00:00: [id number] 1 tablet under the tongue every 5 (five) minutes as needed for Chest pain. [facility] nitroglycer in 0.4 mg sublingual tablet 2021-09 00:00: [id number] 1 tablet under the tongue every 5 (five) minutes as needed for Chest pain. [facility] nitroglycer in 0.4 mg sublingual tablet 2021-09 00:00: [id number] 1 tablet under the tongue every 5 (five) minutes as needed for Chest pain. [facility] nitroglycer in 0.4 mg sublingual tablet 2021-09 00:00: [id number] 1 tablet under the tongue every 5 (five) minutes as needed for Chest pain. [facility] nitroglycer in 0.4 mg sublingual tablet 2021-09 00:00: [id number] 1 tablet under the tongue every 5 (five) minutes as needed for Chest pain. [facility] nitroglycer in 0.4 mg sublingual tablet 2021-09 00:00: [id number] 1 tablet under the tongue every 5 (five) minutes as needed for Chest pain. [facility] nitroglycer in 0.4 mg sublingual tablet 2021-09 00:00: [id number] 1 tablet under the tongue every 5 (five) minutes as needed for Chest pain. [facility] nitroglycer in 0.4 mg sublingual tablet 2021-09 00:00: [id number] 1 tablet under the tongue every 5 (five) minutes as needed for Chest pain. [facility] nitroglycer in 0.4 mg sublingual tablet 2021-09 00:00: [id number] 1 tablet under the tongue every 5 (five) minutes as needed for Chest pain. [facility] nitroglycer in 0.4 mg sublingual tablet 2021-09 00:00: [id number] 1 tablet under the tongue every 5 (five) minutes as needed for Chest pain. [facility] nitroglycer in 0.4 mg sublingual tablet 2021-09 00:00: [id number] 1 tablet under the tongue every 5 (five) minutes as needed for Chest pain. [facility] nitroglycer in 0.4 mg sublingual tablet 2021-09 00:00: [id number] 1 tablet under the tongue every 5 (five) minutes as needed for Chest pain. [facility] nitroglycer in 0.4 mg sublingual tablet 2021-09 00:00: [id number] 1 tablet under the tongue every 5 (five) minutes as needed for Chest pain. [facility] nitroglycer in 0.4 mg sublingual tablet 2021-09 00:00: [id number] 1 tablet under the tongue every 5 (five) minutes as needed for Chest pain. [facility] nitroglycer in 0.4 mg sublingual tablet 2021-09 00:00: [id number] 1 tablet under the tongue every 5 (five) minutes as needed for Chest pain. [facility] nitroglycer in 0.4 mg sublingual tablet 2021-09 00:00: [id number] 1 tablet under the tongue every 5 (five) minutes as needed for Chest pain. [facility] nitroglycer in 0.4 mg sublingual tablet 2021-09 00:00: [id number] 1 tablet under the tongue every 5 (five) minutes as needed for Chest pain. [facility] nitroglycer in 0.4 mg sublingual tablet 2021-09 00:00: [id number] 1 tablet under the tongue every 5 (five) minutes as needed for Chest pain. [facility] nitroglycer in 0.4 mg sublingual tablet 2021-09 00:00: [id number] 1 tablet under the tongue every 5 (five) minutes as needed for Chest pain. [facility] nitroglycer in 0.4 mg sublingual tablet 2021-09 00:00: [id number] 1 tablet under the tongue every 5 (five) minutes as needed for Chest pain. [facility] nitroglycer in 0.4 mg sublingual tablet 2021-09 00:00: [id number] 1 tablet under the tongue every 5 (five) minutes as needed for Chest pain. [facility] nitroglycer in 0.4 mg sublingual tablet 2021-09 00:00: [id number] 1 tablet under the tongue every 5 (five) minutes as needed for Chest pain. [facility] nitroglycer in 0.4 mg sublingual tablet 2021-09 00:00: [id number] 1 tablet under the tongue every 5 (five) minutes as needed for Chest pain. [facility] losartan potassium (LOSARTAN ORAL) 05-02 08:46: 43 05-02 00:00 :00 No Take by mouth 2 (two) times daily. [facility] losartan potassium (LOSARTAN ORAL) 05-02 08:46: 43 05-02 00:00 :00 No Take by mouth 2 (two) times daily. [facility] losartan potassium (LOSARTAN ORAL) 2022-0 8-18 08:46: 43 05-02 00:00 :00 No Take by mouth 2 (two) times daily. [facility] atorvastati n 20 mg tablet 2021-0 818 00:00: 00 Yes [id number] 20mg Take 1 tablet by mouth at bedtime. [facility] amLODIPine 10 mg tablet 2021-0 818 00:00: 00 Yes [id number] 10mg Take 1 tablet by mouth in the morning. [facility] topiramate (TOPAMAX) 50 mg tablet 2021-0 818 00:00: 00 Yes [id number] 50mg Take 1 tablet by mouth in the morning. [facility] losartan 50 mg tablet 2021-0 818 00:00: 00 Yes [id number] 50mg Take 1 tablet by mouth in the morning. [facility] atorvastati n 20 mg tablet 2021-0 18 00:00: 00 Yes [id number] 20mg Take 1 tablet by mouth at bedtime. [facility] amLODIPine 10 mg tablet 2021-0 18 00:00: 00 Yes [id number] 10mg Take 1 tablet by mouth in the morning. [facility] topiramate (TOPAMAX) 50 mg tablet 2021-0 18 00:00: 00 Yes [id number] 50mg Take 1 tablet by mouth in the morning. [facility] losartan 50 mg tablet 2021-0 818 00:00: 00 Yes [id number] 50mg Take 1 tablet by mouth in the morning. [facility] atorvastati n 20 mg tablet 2021-0 818 00:00: 00 Yes [id number] 20mg Take 1 tablet by mouth at bedtime. [facility] amLODIPine 10 mg tablet 2021-0 8-18 00:00: 00 Yes [id number] 10mg Take 1 tablet by mouth in the morning. [facility] topiramate (TOPAMAX) 50 mg tablet 2-0 8-18 00:00: 00 Yes [id number] 50mg Take 1 tablet by mouth in the morning. [facility] losartan 50 mg tablet 2-0 8-18 00:00: 00 Yes [id number] 50mg Take 1 tablet by mouth in the morning. [facility] atorvastati n 20 mg tablet 2-0 8-18 00:00: 00 Yes [id number] 20mg Take 1 tablet by mouth at bedtime. [facility] amLODIPine 10 mg tablet 2021-0 8-18 00:00: 00 Yes [id number] 10mg Take 1 tablet by mouth in the morning. [facility] topiramate (TOPAMAX) 50 mg tablet 2021-0 8-18 00:00: 00 Yes [id number] 50mg Take 1 tablet by mouth in the morning. [facility] losartan 50 mg tablet 2021-0 8-18 00:00: 00 Yes [id number] 50mg Take 1 tablet by mouth in the morning. [facility] atorvastati n 20 mg tablet 2021-0 8-18 00:00: 00 Yes [id number] 20mg Take 1 tablet by mouth at bedtime. [facility] amLODIPine 10 mg tablet 2021-0 8-18 00:00: 00 Yes [id number] 10mg Take 1 tablet by mouth in the morning. [facility] topiramate (TOPAMAX) 50 mg tablet 2021-0 8-18 00:00: 00 Yes [id number] 50mg Take 1 tablet by mouth in the morning. [facility] losartan 50 mg tablet 2021-0 8-18 00:00: 00 Yes [id number] 50mg Take 1 tablet by mouth in the morning. [facility] atorvastati n 20 mg tablet 2021-0 8-18 00:00: 00 Yes [id number] 20mg Take 1 tablet by mouth at bedtime. [facility] amLODIPine 10 mg tablet 2-0 8-18 00:00: 00 Yes [id number] 10mg Take 1 tablet by mouth in the morning. [facility] topiramate (TOPAMAX) 50 mg tablet 2-0 8-18 00:00: 00 Yes [id number] 50mg Take 1 tablet by mouth in the morning. [facility] losartan 50 mg tablet 2-0 8-18 00:00: 00 Yes [id number] 50mg Take 1 tablet by mouth in the morning. [facility] atorvastati n 20 mg tablet 2021-0 8-18 00:00: 00 Yes [id number] 20mg Take 1 tablet by mouth at bedtime. [facility] amLODIPine 10 mg tablet 2021-0 8-18 00:00: 00 Yes [id number] 10mg Take 1 tablet by mouth in the morning. [facility] topiramate (TOPAMAX) 50 mg tablet 2021-0 8-18 00:00: 00 Yes [id number] 50mg Take 1 tablet by mouth in the morning. [facility] losartan 50 mg tablet 2021-0 8-18 00:00: 00 Yes [id number] 50mg Take 1 tablet by mouth in the morning. [facility] atorvastati n 20 mg tablet 2021-0 8-18 00:00: 00 Yes [id number] 20mg Take 1 tablet by mouth at bedtime. [facility] amLODIPine 10 mg tablet 2021-0 8-18 00:00: 00 Yes [id number] 10mg Take 1 tablet by mouth in the morning. [facility] topiramate (TOPAMAX) 50 mg tablet 2021-0 8-18 00:00: 00 Yes [id number] 50mg Take 1 tablet by mouth in the morning. [facility] losartan 50 mg tablet 2021-0 8-18 00:00: 00 Yes [id number] 50mg Take 1 tablet by mouth in the morning. [facility] atorvastati n 20 mg tablet 2021-0 8-18 00:00: 00 Yes [id number] 20mg Take 1 tablet by mouth at bedtime. [facility] amLODIPine 10 mg tablet 2021-0 8-18 00:00: 00 Yes [id number] 10mg Take 1 tablet by mouth in the morning. [facility] topiramate (TOPAMAX) 50 mg tablet 2-0 8-18 00:00: 00 Yes [id number] 50mg Take 1 tablet by mouth in the morning. [facility] losartan 50 mg tablet 2-0 8-18 00:00: 00 Yes [id number] 50mg Take 1 tablet by mouth in the morning. [facility] atorvastati n 20 mg tablet 2-0 8-18 00:00: 00 Yes [id number] 20mg Take 1 tablet by mouth at bedtime. [facility] amLODIPine 10 mg tablet 2021-0 8-18 00:00: 00 Yes [id number] 10mg Take 1 tablet by mouth in the morning. [facility] topiramate (TOPAMAX) 50 mg tablet 2021-0 8-18 00:00: 00 Yes [id number] 50mg Take 1 tablet by mouth in the morning. [facility] losartan 50 mg tablet 2021-0 8-18 00:00: 00 Yes [id number] 50mg Take 1 tablet by mouth in the morning. [facility] atorvastati n 20 mg tablet 2021-0 8-18 00:00: 00 Yes [id number] 20mg Take 1 tablet by mouth at bedtime. [facility] amLODIPine 10 mg tablet 2021-0 8-18 00:00: 00 Yes [id number] 10mg Take 1 tablet by mouth in the morning. [facility] topiramate (TOPAMAX) 50 mg tablet 2021-0 8-18 00:00: 00 Yes [id number] 50mg Take 1 tablet by mouth in the morning. [facility] losartan 50 mg tablet 2021-0 8-18 00:00: 00 Yes [id number] 50mg Take 1 tablet by mouth in the morning. [facility] atorvastati n 20 mg tablet 2-0 8-18 00:00: 00 Yes [id number] 20mg Take 1 tablet by mouth at bedtime. [facility] amLODIPine 10 mg tablet 2-0 8-18 00:00: 00 Yes [id number] 10mg Take 1 tablet by mouth in the morning. [facility] topiramate (TOPAMAX) 50 mg tablet 2-0 8-18 00:00: 00 Yes [id number] 50mg Take 1 tablet by mouth in the morning. [facility] losartan 50 mg tablet 2-0 8-18 00:00: 00 Yes [id number] 50mg Take 1 tablet by mouth in the morning. [facility] atorvastati n 20 mg tablet 2-0 8-18 00:00: 00 Yes [id number] 20mg Take 1 tablet by mouth at bedtime. [facility] amLODIPine 10 mg tablet 2-0 8-18 00:00: 00 Yes [id number] 10mg Take 1 tablet by mouth in the morning. [facility] topiramate (TOPAMAX) 50 mg tablet 2-0 8-18 00:00: 00 Yes [id number] 50mg Take 1 tablet by mouth in the morning. [facility] losartan 50 mg tablet 2-0 8-18 00:00: 00 Yes [id number] 50mg Take 1 tablet by mouth in the morning. [facility] atorvastati n 20 mg tablet 2-0 8-18 00:00: 00 Yes [id number] 20mg Take 1 tablet by mouth at bedtime. [facility] amLODIPine 10 mg tablet 2-0 8-18 00:00: 00 Yes [id number] 10mg Take 1 tablet by mouth in the morning. [facility] topiramate (TOPAMAX) 50 mg tablet 2-0 8-18 00:00: 00 Yes [id number] 50mg Take 1 tablet by mouth in the morning. [facility] losartan 50 mg tablet 2-0 8-18 00:00: 00 Yes [id number] 50mg Take 1 tablet by mouth in the morning. [facility] atorvastati n 20 mg tablet 2-0 8-18 00:00: 00 Yes [id number] 20mg Take 1 tablet by mouth at bedtime. [facility] amLODIPine 10 mg tablet 2-0 8-18 00:00: 00 Yes [id number] 10mg Take 1 tablet by mouth in the morning. [facility] topiramate (TOPAMAX) 50 mg tablet 2-0 8-18 00:00: 00 Yes [id number] 50mg Take 1 tablet by mouth in the morning. [facility] losartan 50 mg tablet 2-0 8-18 00:00: 00 Yes [id number] 50mg Take 1 tablet by mouth in the morning. [facility] atorvastati n 20 mg tablet 2021-0 8-18 00:00: 00 Yes [id number] 20mg Take 1 tablet by mouth at bedtime. [facility] amLODIPine 10 mg tablet 2021-0 8-18 00:00: 00 Yes [id number] 10mg Take 1 tablet by mouth in the morning. [facility] topiramate (TOPAMAX) 50 mg tablet 2021-0 8-18 00:00: 00 Yes [id number] 50mg Take 1 tablet by mouth in the morning. [facility] losartan 50 mg tablet 2021-0 8-18 00:00: 00 Yes [id number] 50mg Take 1 tablet by mouth in the morning. [facility] atorvastati n 20 mg tablet 2021-0 8-18 00:00: 00 Yes [id number] 20mg Take 1 tablet by mouth at bedtime. [facility] amLODIPine 10 mg tablet 2021-0 8-18 00:00: 00 Yes [id number] 10mg Take 1 tablet by mouth in the morning. [facility] topiramate (TOPAMAX) 50 mg tablet 2021-0 8-18 00:00: 00 Yes [id number] 50mg Take 1 tablet by mouth in the morning. [facility] losartan 50 mg tablet 2021-0 8-18 00:00: 00 Yes [id number] 50mg Take 1 tablet by mouth in the morning. [facility] atorvastati n 20 mg tablet 2021-0 8-18 00:00: 00 Yes [id number] 20mg Take 1 tablet by mouth at bedtime. [facility] amLODIPine 10 mg tablet 2021-0 8-18 00:00: 00 Yes [id number] 10mg Take 1 tablet by mouth in the morning. [facility] topiramate (TOPAMAX) 50 mg tablet 2021-0 8-18 00:00: 00 Yes [id number] 50mg Take 1 tablet by mouth in the morning. [facility] losartan 50 mg tablet 2-0 8-18 00:00: 00 Yes [id number] 50mg Take 1 tablet by mouth in the morning. [facility] atorvastati n 20 mg tablet 2021-0 8-18 00:00: 00 Yes [id number] 20mg Take 1 tablet by mouth at bedtime. [facility] amLODIPine 10 mg tablet 2021-0 8-18 00:00: 00 Yes [id number] 10mg Take 1 tablet by mouth in the morning. [facility] topiramate (TOPAMAX) 50 mg tablet 2021-0 8-18 00:00: 00 Yes [id number] 50mg Take 1 tablet by mouth in the morning. [facility] losartan 50 mg tablet 2021-0 8-18 00:00: 00 Yes [id number] 50mg Take 1 tablet by mouth in the morning. [facility] atorvastati n 20 mg tablet 2021-0 8-18 00:00: 00 Yes [id number] 20mg Take 1 tablet by mouth at bedtime. [facility] amLODIPine 10 mg tablet 2021-0 8-18 00:00: 00 Yes [id number] 10mg Take 1 tablet by mouth in the morning. [facility] topiramate (TOPAMAX) 50 mg tablet 2021-0 8-18 00:00: 00 Yes [id number] 50mg Take 1 tablet by mouth in the morning. [facility] losartan 50 mg tablet 2021-0 8-18 00:00: 00 Yes [id number] 50mg Take 1 tablet by mouth in the morning. [facility] atorvastati n 20 mg tablet 2021-0 8-18 00:00: 00 Yes [id number] 20mg Take 1 tablet by mouth at bedtime. [facility] amLODIPine 10 mg tablet 2021-0 8-18 00:00: 00 Yes [id number] 10mg Take 1 tablet by mouth in the morning. [facility] topiramate (TOPAMAX) 50 mg tablet 2021-0 8-18 00:00: 00 Yes [id number] 50mg Take 1 tablet by mouth in the morning. [facility] losartan 50 mg tablet 2-0 8-18 00:00: 00 Yes [id number] 50mg Take 1 tablet by mouth in the morning. [facility] atorvastati n 20 mg tablet 2-0 8-18 00:00: 00 Yes [id number] 20mg Take 1 tablet by mouth at bedtime. [facility] amLODIPine 10 mg tablet 2-0 8-18 00:00: 00 Yes [id number] 10mg Take 1 tablet by mouth in the morning. [facility] topiramate (TOPAMAX) 50 mg tablet 2-0 8-18 00:00: 00 Yes [id number] 50mg Take 1 tablet by mouth in the morning. [facility] losartan 50 mg tablet 2-0 8-18 00:00: 00 Yes [id number] 50mg Take 1 tablet by mouth in the morning. [facility] atorvastati n 20 mg tablet 2-0 8-18 00:00: 00 Yes [id number] 20mg Take 1 tablet by mouth at bedtime. [facility] amLODIPine 10 mg tablet 2-0 8-18 00:00: 00 Yes [id number] 10mg Take 1 tablet by mouth in the morning. [facility] topiramate (TOPAMAX) 50 mg tablet 2-0 8-18 00:00: 00 Yes [id number] 50mg Take 1 tablet by mouth in the morning. [facility] losartan 50 mg tablet 2-0 8-18 00:00: 00 Yes [id number] 50mg Take 1 tablet by mouth in the morning. [facility] atorvastati n 20 mg tablet 2-0 8-18 00:00: 00 Yes [id number] 20mg Take 1 tablet by mouth at bedtime. [facility] amLODIPine 10 mg tablet 2-0 8-18 00:00: 00 Yes [id number] 10mg Take 1 tablet by mouth in the morning. [facility] topiramate (TOPAMAX) 50 mg tablet 2-0 8-18 00:00: 00 Yes [id number] 50mg Take 1 tablet by mouth in the morning. [facility] losartan 50 mg tablet 2-0 8-18 00:00: 00 Yes [id number] 50mg Take 1 tablet by mouth in the morning. [facility] atorvastati n 20 mg tablet 2-0 8-18 00:00: 00 Yes [id number] 20mg Take 1 tablet by mouth at bedtime. [facility] amLODIPine 10 mg tablet 2-0 8-18 00:00: 00 Yes [id number] 10mg Take 1 tablet by mouth in the morning. [facility] topiramate (TOPAMAX) 50 mg tablet 2-0 8-18 00:00: 00 Yes [id number] 50mg Take 1 tablet by mouth in the morning. [facility] losartan 50 mg tablet 2-0 8-18 00:00: 00 Yes [id number] 50mg Take 1 tablet by mouth in the morning. [facility] atorvastati n 20 mg tablet 2-0 8-18 00:00: 00 Yes [id number] 20mg Take 1 tablet by mouth at bedtime. [facility] amLODIPine 10 mg tablet 2-0 8-18 00:00: 00 Yes [id number] 10mg Take 1 tablet by mouth in the morning. [facility] topiramate (TOPAMAX) 50 mg tablet 2-0 8-18 00:00: 00 Yes [id number] 50mg Take 1 tablet by mouth in the morning. [facility] losartan 50 mg tablet 2-0 8-18 00:00: 00 Yes [id number] 50mg Take 1 tablet by mouth in the morning. [facility] atorvastati n 20 mg tablet 2-0 8-18 00:00: 00 Yes [id number] 20mg Take 1 tablet by mouth at bedtime. [facility] amLODIPine 10 mg tablet 2-0 8-18 00:00: 00 Yes [id number] 10mg Take 1 tablet by mouth in the morning. [facility] topiramate (TOPAMAX) 50 mg tablet 2-0 8-18 00:00: 00 Yes [id number] 50mg Take 1 tablet by mouth in the morning. [facility] losartan 50 mg tablet 2-0 8-18 00:00: 00 Yes [id number] 50mg Take 1 tablet by mouth in the morning. [facility] atorvastati n 20 mg tablet 2-0 8-18 00:00: 00 Yes [id number] 20mg Take 1 tablet by mouth at bedtime. [facility] amLODIPine 10 mg tablet 2021-0 8-18 00:00: 00 Yes [id number] 10mg Take 1 tablet by mouth in the morning. [facility] topiramate (TOPAMAX) 50 mg tablet 2021-0 8-18 00:00: 00 Yes [id number] 50mg Take 1 tablet by mouth in the morning. [facility] losartan 50 mg tablet 2021-0 8-18 00:00: 00 Yes [id number] 50mg Take 1 tablet by mouth in the morning. [facility] atorvastati n 20 mg tablet 2021-0 8-18 00:00: 00 Yes [id number] 20mg Take 1 tablet by mouth at bedtime. [facility] amLODIPine 10 mg tablet 2021-0 8-18 00:00: 00 Yes [id number] 10mg Take 1 tablet by mouth in the morning. [facility] topiramate (TOPAMAX) 50 mg tablet 2021-0 8-18 00:00: 00 Yes [id number] 50mg Take 1 tablet by mouth in the morning. [facility] losartan 50 mg tablet 2021-0 8-18 00:00: 00 Yes [id number] 50mg Take 1 tablet by mouth in the morning. [facility] atorvastati n 20 mg tablet 2-0 8-18 00:00: 00 Yes [id number] 20mg Take 1 tablet by mouth at bedtime. [facility] amLODIPine 10 mg tablet 2021-0 8-18 00:00: 00 Yes [id number] 10mg Take 1 tablet by mouth in the morning. [facility] topiramate (TOPAMAX) 50 mg tablet 2-0 8-18 00:00: 00 Yes [id number] 50mg Take 1 tablet by mouth in the morning. [facility] losartan 50 mg tablet 2-0 8-18 00:00: 00 Yes [id number] 50mg Take 1 tablet by mouth in the morning. [facility] atorvastati n 20 mg tablet 2-0 8-18 00:00: 00 Yes [id number] 20mg Take 1 tablet by mouth at bedtime. [facility] amLODIPine 10 mg tablet 2021-0 8-18 00:00: 00 Yes [id number] 10mg Take 1 tablet by mouth in the morning. [facility] topiramate (TOPAMAX) 50 mg tablet 2021-0 8-18 00:00: 00 Yes [id number] 50mg Take 1 tablet by mouth in the morning. [facility] losartan 50 mg tablet 2021-0 8-18 00:00: 00 Yes [id number] 50mg Take 1 tablet by mouth in the morning. [facility] atorvastati n 20 mg tablet 2021-0 8-18 00:00: 00 Yes [id number] 20mg Take 1 tablet by mouth at bedtime. [facility] amLODIPine 10 mg tablet 2021-0 8-18 00:00: 00 Yes [id number] 10mg Take 1 tablet by mouth in the morning. [facility] topiramate (TOPAMAX) 50 mg tablet 2021-0 8-18 00:00: 00 Yes [id number] 50mg Take 1 tablet by mouth in the morning. [facility] losartan 50 mg tablet 2021-0 8-18 00:00: 00 Yes [id number] 50mg Take 1 tablet by mouth in the morning. [facility] atorvastati n 20 mg tablet 2021-0 8-18 00:00: 00 Yes [id number] 20mg Take 1 tablet by mouth at bedtime. [facility] amLODIPine 10 mg tablet 2021-0 8-18 00:00: 00 Yes [id number] 10mg Take 1 tablet by mouth in the morning. [facility] topiramate (TOPAMAX) 50 mg tablet 2-0 8-18 00:00: 00 Yes [id number] 50mg Take 1 tablet by mouth in the morning. [facility] losartan 50 mg tablet 2-0 8-18 00:00: 00 Yes [id number] 50mg Take 1 tablet by mouth in the morning. [facility] atorvastati n 20 mg tablet 2-0 8-18 00:00: 00 Yes [id number] 20mg Take 1 tablet by mouth at bedtime. [facility] amLODIPine 10 mg tablet 2021-0 8-18 00:00: 00 Yes [id number] 10mg Take 1 tablet by mouth in the morning. [facility] topiramate (TOPAMAX) 50 mg tablet 2021-0 8-18 00:00: 00 Yes [id number] 50mg Take 1 tablet by mouth in the morning. [facility] losartan 50 mg tablet 2021-0 8-18 00:00: 00 Yes [id number] 50mg Take 1 tablet by mouth in the morning. [facility] atorvastati n 20 mg tablet 2021-0 8-18 00:00: 00 Yes [id number] 20mg Take 1 tablet by mouth at bedtime. [facility] amLODIPine 10 mg tablet 2021-0 8-18 00:00: 00 Yes [id number] 10mg Take 1 tablet by mouth in the morning. [facility] topiramate (TOPAMAX) 50 mg tablet 2021-0 8-18 00:00: 00 Yes [id number] 50mg Take 1 tablet by mouth in the morning. [facility] losartan 50 mg tablet 2021-0 8-18 00:00: 00 Yes [id number] 50mg Take 1 tablet by mouth in the morning. [facility] atorvastati n 20 mg tablet 2021-0 8-18 00:00: 00 Yes [id number] 20mg Take 1 tablet by mouth at bedtime. [facility] amLODIPine 10 mg tablet 2021-0 8-18 00:00: 00 Yes [id number] 10mg Take 1 tablet by mouth in the morning. [facility] topiramate (TOPAMAX) 50 mg tablet 2-0 8-18 00:00: 00 Yes [id number] 50mg Take 1 tablet by mouth in the morning. [facility] losartan 50 mg tablet 2021-0 8-18 00:00: 00 Yes [id number] 50mg Take 1 tablet by mouth in the morning. [facility] atorvastati n 20 mg tablet 2-0 8-18 00:00: 00 Yes [id number] 20mg Take 1 tablet by mouth at bedtime. [facility] amLODIPine 10 mg tablet 2-0 8-18 00:00: 00 Yes [id number] 10mg Take 1 tablet by mouth in the morning. [facility] topiramate (TOPAMAX) 50 mg tablet 2-0 8-18 00:00: 00 Yes [id number] 50mg Take 1 tablet by mouth in the morning. [facility] losartan 50 mg tablet 2-0 8-18 00:00: 00 Yes [id number] 50mg Take 1 tablet by mouth in the morning. [facility] atorvastati n 20 mg tablet 2-0 8-18 00:00: 00 Yes [id number] 20mg Take 1 tablet by mouth at bedtime. [facility] amLODIPine 10 mg tablet 2-0 8-18 00:00: 00 Yes [id number] 10mg Take 1 tablet by mouth in the morning. [facility] topiramate (TOPAMAX) 50 mg tablet 2-0 8-18 00:00: 00 Yes [id number] 50mg Take 1 tablet by mouth in the morning. [facility] losartan 50 mg tablet 2-0 8-18 00:00: 00 Yes [id number] 50mg Take 1 tablet by mouth in the morning. [facility] atorvastati n 20 mg tablet 2-0 8-18 00:00: 00 Yes [id number] 20mg Take 1 tablet by mouth at bedtime. [facility] amLODIPine 10 mg tablet 2-0 8-18 00:00: 00 Yes [id number] 10mg Take 1 tablet by mouth in the morning. [facility] topiramate (TOPAMAX) 50 mg tablet 2-0 8-18 00:00: 00 Yes [id number] 50mg Take 1 tablet by mouth in the morning. [facility] losartan 50 mg tablet 2-0 8-18 00:00: 00 Yes [id number] 50mg Take 1 tablet by mouth in the morning. [facility] atorvastati n 20 mg tablet 2-0 8-18 00:00: 00 Yes [id number] 20mg Take 1 tablet by mouth at bedtime. [facility] amLODIPine 10 mg tablet 2021-0 8-18 00:00: 00 Yes [id number] 10mg Take 1 tablet by mouth in the morning. [facility] topiramate (TOPAMAX) 50 mg tablet 2021-0 8-18 00:00: 00 Yes [id number] 50mg Take 1 tablet by mouth in the morning. [facility] losartan 50 mg tablet 2021-0 8-18 00:00: 00 Yes [id number] 50mg Take 1 tablet by mouth in the morning. [facility] atorvastati n 20 mg tablet 2021-0 8-18 00:00: 00 Yes [id number] 20mg Take 1 tablet by mouth at bedtime. [facility] amLODIPine 10 mg tablet 2021-0 8-18 00:00: 00 Yes [id number] 10mg Take 1 tablet by mouth in the morning. [facility] topiramate (TOPAMAX) 50 mg tablet 2021-0 8-18 00:00: 00 Yes [id number] 50mg Take 1 tablet by mouth in the morning. [facility] losartan 50 mg tablet 2021-0 8-18 00:00: 00 Yes [id number] 50mg Take 1 tablet by mouth in the morning. [facility] atorvastati n 20 mg tablet 2-0 8-18 00:00: 00 Yes [id number] 20mg Take 1 tablet by mouth at bedtime. [facility] amLODIPine 10 mg tablet 2021-0 8-18 00:00: 00 Yes [id number] 10mg Take 1 tablet by mouth in the morning. [facility] topiramate (TOPAMAX) 50 mg tablet 2021-0 8-18 00:00: 00 Yes [id number] 50mg Take 1 tablet by mouth in the morning. [facility] losartan 50 mg tablet 2021-0 8-18 00:00: 00 Yes [id number] 50mg Take 1 tablet by mouth in the morning. [facility] atorvastati n 20 mg tablet 2-0 8-18 00:00: 00 Yes [id number] 20mg Take 1 tablet by mouth at bedtime. [facility] amLODIPine 10 mg tablet 2021-0 8-18 00:00: 00 Yes [id number] 10mg Take 1 tablet by mouth in the morning. [facility] topiramate (TOPAMAX) 50 mg tablet 2021-0 8-18 00:00: 00 Yes [id number] 50mg Take 1 tablet by mouth in the morning. [facility] losartan 50 mg tablet 2021-0 8-18 00:00: 00 Yes [id number] 50mg Take 1 tablet by mouth in the morning. [facility] atorvastati n 20 mg tablet 2021-0 8-18 00:00: 00 Yes [id number] 20mg Take 1 tablet by mouth at bedtime. [facility] amLODIPine 10 mg tablet 2021-0 8-18 00:00: 00 Yes [id number] 10mg Take 1 tablet by mouth in the morning. [facility] topiramate (TOPAMAX) 50 mg tablet 2021-0 8-18 00:00: 00 Yes [id number] 50mg Take 1 tablet by mouth in the morning. [facility] losartan 50 mg tablet 2021-0 8-18 00:00: 00 Yes [id number] 50mg Take 1 tablet by mouth in the morning. [facility] atorvastati n 20 mg tablet 2021-0 8-18 00:00: 00 Yes [id number] 20mg Take 1 tablet by mouth at bedtime. [facility] amLODIPine 10 mg tablet 2021-0 8-18 00:00: 00 Yes [id number] 10mg Take 1 tablet by mouth in the morning. [facility] topiramate (TOPAMAX) 50 mg tablet 2021-0 8-18 00:00: 00 Yes [id number] 50mg Take 1 tablet by mouth in the morning. [facility] losartan 50 mg tablet 2021-0 8-18 00:00: 00 Yes [id number] 50mg Take 1 tablet by mouth in the morning. [facility] atorvastati n 20 mg tablet 2-0 8-18 00:00: 00 Yes [id number] 20mg Take 1 tablet by mouth at bedtime. [facility] amLODIPine 10 mg tablet 2021-0 8-18 00:00: 00 Yes [id number] 10mg Take 1 tablet by mouth in the morning. [facility] topiramate (TOPAMAX) 50 mg tablet 2021-0 8-18 00:00: 00 Yes [id number] 50mg Take 1 tablet by mouth in the morning. [facility] losartan 50 mg tablet 2021-0 8-18 00:00: 00 Yes [id number] 50mg Take 1 tablet by mouth in the morning. [facility] atorvastati n 20 mg tablet 2021-0 8-18 00:00: 00 Yes [id number] 20mg Take 1 tablet by mouth at bedtime. [facility] amLODIPine 10 mg tablet 2021-0 8-18 00:00: 00 Yes [id number] 10mg Take 1 tablet by mouth in the morning. [facility] topiramate (TOPAMAX) 50 mg tablet 2021-0 8-18 00:00: 00 Yes [id number] 50mg Take 1 tablet by mouth in the morning. [facility] losartan 50 mg tablet 2021-0 8-18 00:00: 00 Yes [id number] 50mg Take 1 tablet by mouth in the morning. [facility] atorvastati n 20 mg tablet 2021-0 8-18 00:00: 00 Yes [id number] 20mg Take 1 tablet by mouth at bedtime. [facility] amLODIPine 10 mg tablet 2021-0 8-18 00:00: 00 Yes [id number] 10mg Take 1 tablet by mouth in the morning. [facility] topiramate (TOPAMAX) 50 mg tablet 2021-0 8-18 00:00: 00 Yes [id number] 50mg Take 1 tablet by mouth in the morning. [facility] losartan 50 mg tablet 2021-0 8-18 00:00: 00 Yes [id number] 50mg Take 1 tablet by mouth in the morning. [facility] atorvastati n 20 mg tablet 2-0 8-18 00:00: 00 Yes [id number] 20mg Take 1 tablet by mouth at bedtime. [facility] amLODIPine 10 mg tablet 2022-0 8-18 00:00: 00 Yes [id number] 10mg Take 1 tablet by mouth in the morning. [facility] topiramate (TOPAMAX) 50 mg tablet 2-0 8-18 00:00: 00 Yes [id number] 50mg Take 1 tablet by mouth in the morning. [facility] losartan 50 mg tablet 2-0 8-18 00:00: 00 Yes [id number] 50mg Take 1 tablet by mouth in the morning. [facility] atorvastati n 20 mg tablet 2-0 8-18 00:00: 00 Yes [id number] 20mg Take 1 tablet by mouth at bedtime. [facility] amLODIPine 10 mg tablet 2021-0 8-18 00:00: 00 Yes [id number] 10mg Take 1 tablet by mouth in the morning. [facility] topiramate (TOPAMAX) 50 mg tablet 2-0 8-18 00:00: 00 Yes [id number] 50mg Take 1 tablet by mouth in the morning. [facility] losartan 50 mg tablet 2-0 8-18 00:00: 00 Yes [id number] 50mg Take 1 tablet by mouth in the morning. [facility] atorvastati n 20 mg tablet 2-0 8-18 00:00: 00 Yes [id number] 20mg Take 1 tablet by mouth at bedtime. [facility] amLODIPine 10 mg tablet 2-0 8-18 00:00: 00 Yes [id number] 10mg Take 1 tablet by mouth in the morning. [facility] topiramate (TOPAMAX) 50 mg tablet 2-0 8-18 00:00: 00 Yes [id number] 50mg Take 1 tablet by mouth in the morning. [facility] losartan 50 mg tablet 2-0 8-18 00:00: 00 Yes [id number] 50mg Take 1 tablet by mouth in the morning. [facility] atorvastati n 20 mg tablet 2-0 8-18 00:00: 00 Yes [id number] 20mg Take 1 tablet by mouth at bedtime. [facility] amLODIPine 10 mg tablet 2-0 8-18 00:00: 00 Yes [id number] 10mg Take 1 tablet by mouth in the morning. [facility] topiramate (TOPAMAX) 50 mg tablet 2021-0 8-18 00:00: 00 Yes [id number] 50mg Take 1 tablet by mouth in the morning. [facility] losartan 50 mg tablet 2021-0 8-18 00:00: 00 Yes [id number] 50mg Take 1 tablet by mouth in the morning. [facility] atorvastati n 20 mg tablet 2-0 8-18 00:00: 00 Yes [id number] 20mg Take 1 tablet by mouth at bedtime. [facility] amLODIPine 10 mg tablet 2021-0 8-18 00:00: 00 Yes [id number] 10mg Take 1 tablet by mouth in the morning. [facility] topiramate (TOPAMAX) 50 mg tablet 2021-0 8-18 00:00: 00 Yes [id number] 50mg Take 1 tablet by mouth in the morning. [facility] losartan 50 mg tablet 2021-0 8-18 00:00: 00 Yes [id number] 50mg Take 1 tablet by mouth in the morning. [facility] atorvastati n 20 mg tablet 2021-0 8-18 00:00: 00 Yes [id number] 20mg Take 1 tablet by mouth at bedtime. [facility] amLODIPine 10 mg tablet 2-0 8-18 00:00: 00 Yes [id number] 10mg Take 1 tablet by mouth in the morning. [facility] topiramate (TOPAMAX) 50 mg tablet 2021-0 8-18 00:00: 00 Yes [id number] 50mg Take 1 tablet by mouth in the morning. [facility] losartan 50 mg tablet 2021-0 8-18 00:00: 00 Yes [id number] 50mg Take 1 tablet by mouth in the morning. [facility] atorvastati n 20 mg tablet 2-0 8-18 00:00: 00 Yes [id number] 20mg Take 1 tablet by mouth at bedtime. [facility] amLODIPine 10 mg tablet 2-0 8-18 00:00: 00 Yes [id number] 10mg Take 1 tablet by mouth in the morning. [facility] topiramate (TOPAMAX) 50 mg tablet 2021-0 8-18 00:00: 00 Yes [id number] 50mg Take 1 tablet by mouth in the morning. [facility] losartan 50 mg tablet 2021-0 8-18 00:00: 00 Yes [id number] 50mg Take 1 tablet by mouth in the morning. [facility] atorvastati n 20 mg tablet 2021-0 8-18 00:00: 00 Yes [id number] 20mg Take 1 tablet by mouth at bedtime. [facility] amLODIPine 10 mg tablet 2021-0 8-18 00:00: 00 Yes [id number] 10mg Take 1 tablet by mouth in the morning. [facility] topiramate (TOPAMAX) 50 mg tablet 2021-0 8-18 00:00: 00 Yes [id number] 50mg Take 1 tablet by mouth in the morning. [facility] losartan 50 mg tablet 2021-0 8-18 00:00: 00 Yes [id number] 50mg Take 1 tablet by mouth in the morning. [facility] atorvastati n 20 mg tablet 2021-0 8-18 00:00: 00 Yes [id number] 20mg Take 1 tablet by mouth at bedtime. [facility] amLODIPine 10 mg tablet 2021-0 8-18 00:00: 00 Yes [id number] 10mg Take 1 tablet by mouth in the morning. [facility] topiramate (TOPAMAX) 50 mg tablet 2021-0 8-18 00:00: 00 Yes [id number] 50mg Take 1 tablet by mouth in the morning. [facility] losartan 50 mg tablet 2-0 8-18 00:00: 00 Yes [id number] 50mg Take 1 tablet by mouth in the morning. [facility] atorvastati n 20 mg tablet 2-0 8-18 00:00: 00 Yes [id number] 20mg Take 1 tablet by mouth at bedtime. [facility] amLODIPine 10 mg tablet 2-0 8-18 00:00: 00 Yes [id number] 10mg Take 1 tablet by mouth in the morning. [facility] topiramate (TOPAMAX) 50 mg tablet 2021-0 8-18 00:00: 00 Yes [id number] 50mg Take 1 tablet by mouth in the morning. [facility] losartan 50 mg tablet 2021-0 8-18 00:00: 00 Yes [id number] 50mg Take 1 tablet by mouth in the morning. [facility] atorvastati n 20 mg tablet 2021-0 8-18 00:00: 00 Yes [id number] 20mg Take 1 tablet by mouth at bedtime. [facility] amLODIPine 10 mg tablet 2021-0 8-18 00:00: 00 Yes [id number] 10mg Take 1 tablet by mouth in the morning. [facility] topiramate (TOPAMAX) 50 mg tablet 2021-0 8-18 00:00: 00 Yes [id number] 50mg Take 1 tablet by mouth in the morning. [facility] losartan 50 mg tablet 2021-0 8-18 00:00: 00 Yes [id number] 50mg Take 1 tablet by mouth in the morning. [facility] atorvastati n 20 mg tablet 2021-0 8-18 00:00: 00 Yes [id number] 20mg Take 1 tablet by mouth at bedtime. [facility] amLODIPine 10 mg tablet 2021-0 8-18 00:00: 00 Yes [id number] 10mg Take 1 tablet by mouth in the morning. [facility] topiramate (TOPAMAX) 50 mg tablet 2021-0 8-18 00:00: 00 Yes [id number] 50mg Take 1 tablet by mouth in the morning. [facility] losartan 50 mg tablet 2-0 8-18 00:00: 00 Yes [id number] 50mg Take 1 tablet by mouth in the morning. [facility] atorvastati n 20 mg tablet 2-0 8-18 00:00: 00 Yes [id number] 20mg Take 1 tablet by mouth at bedtime. [facility] amLODIPine 10 mg tablet 2-0 8-18 00:00: 00 Yes [id number] 10mg Take 1 tablet by mouth in the morning. [facility] topiramate (TOPAMAX) 50 mg tablet 2-0 8-18 00:00: 00 Yes [id number] 50mg Take 1 tablet by mouth in the morning. [facility] losartan 50 mg tablet 2-0 8-18 00:00: 00 Yes [id number] 50mg Take 1 tablet by mouth in the morning. [facility] atorvastati n 20 mg tablet 2-0 8-18 00:00: 00 Yes [id number] 20mg Take 1 tablet by mouth at bedtime. [facility] amLODIPine 10 mg tablet 2-0 8-18 00:00: 00 Yes [id number] 10mg Take 1 tablet by mouth in the morning. [facility] topiramate (TOPAMAX) 50 mg tablet 2021-0 8-18 00:00: 00 Yes [id number] 50mg Take 1 tablet by mouth in the morning. [facility] losartan 50 mg tablet 2021-0 8-18 00:00: 00 Yes [id number] 50mg Take 1 tablet by mouth in the morning. [facility] atorvastati n 20 mg tablet 2-0 8-18 00:00: 00 Yes [id number] 20mg Take 1 tablet by mouth at bedtime. [facility] amLODIPine 10 mg tablet 2-0 8-18 00:00: 00 Yes [id number] 10mg Take 1 tablet by mouth in the morning. [facility] topiramate (TOPAMAX) 50 mg tablet 2021-0 8-18 00:00: 00 Yes [id number] 50mg Take 1 tablet by mouth in the morning. [facility] losartan 50 mg tablet 2-0 8-18 00:00: 00 Yes [id number] 50mg Take 1 tablet by mouth in the morning. [facility] atorvastati n 20 mg tablet 2-0 8-18 00:00: 00 Yes [id number] 20mg Take 1 tablet by mouth at bedtime. [facility] amLODIPine 10 mg tablet 2-0 8-18 00:00: 00 Yes [id number] 10mg Take 1 tablet by mouth in the morning. [facility] topiramate (TOPAMAX) 50 mg tablet 2021-0 8-18 00:00: 00 Yes [id number] 50mg Take 1 tablet by mouth in the morning. [facility] losartan 50 mg tablet 2021-0 8-18 00:00: 00 Yes [id number] 50mg Take 1 tablet by mouth in the morning. [facility] atorvastati n 20 mg tablet 2021-0 8-18 00:00: 00 Yes [id number] 20mg Take 1 tablet by mouth at bedtime. [facility] amLODIPine 10 mg tablet 2021-0 8-18 00:00: 00 Yes [id number] 10mg Take 1 tablet by mouth in the morning. [facility] topiramate (TOPAMAX) 50 mg tablet 2021-0 8-18 00:00: 00 Yes [id number] 50mg Take 1 tablet by mouth in the morning. [facility] losartan 50 mg tablet 2021-0 8-18 00:00: 00 Yes [id number] 50mg Take 1 tablet by mouth in the morning. [facility] atorvastati n 20 mg tablet 2021-0 8-18 00:00: 00 Yes [id number] 20mg Take 1 tablet by mouth at bedtime. [facility] amLODIPine 10 mg tablet 2021-0 8-18 00:00: 00 Yes [id number] 10mg Take 1 tablet by mouth in the morning. [facility] topiramate (TOPAMAX) 50 mg tablet 2021-0 8-18 00:00: 00 Yes [id number] 50mg Take 1 tablet by mouth in the morning. [facility] losartan 50 mg tablet 2021-0 8-18 00:00: 00 Yes [id number] 50mg Take 1 tablet by mouth in the morning. [facility] atorvastati n 20 mg tablet 2021-0 8-18 00:00: 00 Yes [id number] 20mg Take 1 tablet by mouth at bedtime. [facility] amLODIPine 10 mg tablet 2-0 8-18 00:00: 00 Yes [id number] 10mg Take 1 tablet by mouth in the morning. [facility] topiramate (TOPAMAX) 50 mg tablet 2021-0 8-18 00:00: 00 Yes [id number] 50mg Take 1 tablet by mouth in the morning. [facility] losartan 50 mg tablet 2021-0 8-18 00:00: 00 Yes [id number] 50mg Take 1 tablet by mouth in the morning. [facility] atorvastati n 20 mg tablet 2021-0 8-18 00:00: 00 Yes [id number] 20mg Take 1 tablet by mouth at bedtime. [facility] amLODIPine 10 mg tablet 2021-0 8-18 00:00: 00 Yes [id number] 10mg Take 1 tablet by mouth in the morning. [facility] topiramate (TOPAMAX) 50 mg tablet 2021-0 8-18 00:00: 00 Yes [id number] 50mg Take 1 tablet by mouth in the morning. [facility] losartan 50 mg tablet 2021-0 8-18 00:00: 00 Yes [id number] 50mg Take 1 tablet by mouth in the morning. [facility] atorvastati n 20 mg tablet 2021-0 8-18 00:00: 00 Yes [id number] 20mg Take 1 tablet by mouth at bedtime. [facility] amLODIPine 10 mg tablet 2021-0 8-18 00:00: 00 Yes [id number] 10mg Take 1 tablet by mouth in the morning. [facility] topiramate (TOPAMAX) 50 mg tablet 2021-0 8-18 00:00: 00 Yes [id number] 50mg Take 1 tablet by mouth in the morning. [facility] losartan 50 mg tablet 2021-0 8-18 00:00: 00 Yes [id number] 50mg Take 1 tablet by mouth in the morning. [facility] atorvastati n 20 mg tablet 2021-0 8-18 00:00: 00 Yes [id number] 20mg Take 1 tablet by mouth at bedtime. [facility] amLODIPine 10 mg tablet 2-0 8-18 00:00: 00 Yes [id number] 10mg Take 1 tablet by mouth in the morning. [facility] topiramate (TOPAMAX) 50 mg tablet 2021-0 8-18 00:00: 00 Yes [id number] 50mg Take 1 tablet by mouth in the morning. [facility] losartan 50 mg tablet 2021-0 8-18 00:00: 00 Yes [id number] 50mg Take 1 tablet by mouth in the morning. [facility] atorvastati n 20 mg tablet 2-0 8-18 00:00: 00 Yes [id number] 20mg Take 1 tablet by mouth at bedtime. [facility] amLODIPine 10 mg tablet 2021-0 8-18 00:00: 00 Yes [id number] 10mg Take 1 tablet by mouth in the morning. [facility] topiramate (TOPAMAX) 50 mg tablet 2021-0 8-18 00:00: 00 Yes [id number] 50mg Take 1 tablet by mouth in the morning. [facility] losartan 50 mg tablet 2021-0 8-18 00:00: 00 Yes [id number] 50mg Take 1 tablet by mouth in the morning. [facility] atorvastati n 20 mg tablet 2021-0 8-18 00:00: 00 Yes [id number] 20mg Take 1 tablet by mouth at bedtime. [facility] amLODIPine 10 mg tablet 2021-0 8-18 00:00: 00 Yes [id number] 10mg Take 1 tablet by mouth in the morning. [facility] topiramate (TOPAMAX) 50 mg tablet 2021-0 8-18 00:00: 00 Yes [id number] 50mg Take 1 tablet by mouth in the morning. [facility] losartan 50 mg tablet 2021-0 8-18 00:00: 00 Yes [id number] 50mg Take 1 tablet by mouth in the morning. [facility] atorvastati n 20 mg tablet 2021-0 8-18 00:00: 00 Yes [id number] 20mg Take 1 tablet by mouth at bedtime. [facility] amLODIPine 10 mg tablet 2-0 8-18 00:00: 00 Yes [id number] 10mg Take 1 tablet by mouth in the morning. [facility] topiramate (TOPAMAX) 50 mg tablet 2-0 8-18 00:00: 00 Yes [id number] 50mg Take 1 tablet by mouth in the morning. [facility] losartan 50 mg tablet 2-0 8-18 00:00: 00 Yes [id number] 50mg Take 1 tablet by mouth in the morning. [facility] losartan 50 mg tablet 2-0 8-18 00:00: 00 02-05 00:00 :00 No [id number] 50mg Take 1 tablet by mouth in the morning. [facility] atorvastati n 20 mg tablet 2021-0 8-18 00:00: 00 02-05 00:00 :00 No [id number] 20mg Take 1 tablet by mouth at bedtime. [facility] amLODIPine 10 mg tablet 2021-0 8-18 00:00: 00 02-05 00:00 :00 No [id number] 10mg Take 1 tablet by mouth in the morning. [facility] topiramate (TOPAMAX) 50 mg tablet 2021-0 8-18 00:00: 00 02-05 00:00 :00 No [id number] 50mg Take 1 tablet by mouth in the morning. [facility] losartan 50 mg tablet 2021-0 8-18 00:00: 00 02-05 00:00 :00 No [id number] 50mg Take 1 tablet by mouth in the morning. [facility] atorvastati n 20 mg tablet 2021-0 8-18 00:00: 00 02-05 00:00 :00 No [id number] 20mg Take 1 tablet by mouth at bedtime. [facility] amLODIPine 10 mg tablet 2-0 8-18 00:00: 00 02-05 00:00 :00 No [id number] 10mg Take 1 tablet by mouth in the morning. [facility] topiramate (TOPAMAX) 50 mg tablet 2-0 8-18 00:00: 00 02-05 00:00 :00 No [id number] 50mg Take 1 tablet by mouth in the morning. [facility] losartan 50 mg tablet 05-02 00:00: 00 02-05 00:00 :00 No [id number] 50mg Take 1 tablet by mouth in the morning. [facility] atorvastati n 20 mg tablet 05-02 00:00: 00 02-05 00:00 :00 No [id number] 20mg Take 1 tablet by mouth at bedtime. [facility] amLODIPine 10 mg tablet 05-02 00:00: 00 02-05 00:00 :00 No [id number] 10mg Take 1 tablet by mouth in the morning. [facility] topiramate (TOPAMAX) 50 mg tablet 05-02 00:00: 00 02-05 00:00 :00 No [id number] 50mg Take 1 tablet by mouth in the morning. [facility] metoprolol succinate XL 25 mg 24 hr tablet 03-29 00:00: 00 Yes [id number] 25mg Take 1 tablet by mouth in the morning. [facility] metoprolol succinate XL 25 mg 24 hr tablet 03-29 00:00: 00 Yes [id number] 25mg Take 1 tablet by mouth in the morning. [facility] metoprolol succinate XL 25 mg 24 hr tablet 03-29 00:00: 00 Yes [id number] 25mg Take 1 tablet by mouth in the morning. [facility] metoprolol succinate XL 25 mg 24 hr tablet 03-29 00:00: 00 Yes [id number] 25mg Take 1 tablet by mouth in the morning. [facility] metoprolol succinate XL 25 mg 24 hr tablet 15 00:00: 00 Yes [id number] 25mg Take 1 tablet by mouth in the morning. [facility] metoprolol succinate XL 25 mg 24 hr tablet 15 00:00: 00 Yes [id number] 25mg Take 1 tablet by mouth in the morning. [facility] metoprolol succinate XL 25 mg 24 hr tablet 15 00:00: 00 Yes [id number] 25mg Take 1 tablet by mouth in the morning. [facility] metoprolol succinate XL 25 mg 24 hr tablet 2-0 7-15 00:00: 00 Yes [id number] 25mg Take 1 tablet by mouth in the morning. [facility] metoprolol succinate XL 25 mg 24 hr tablet 2-0 7-15 00:00: 00 Yes [id number] 25mg Take 1 tablet by mouth in the morning. [facility] metoprolol succinate XL 25 mg 24 hr tablet 2021-0 7-15 00:00: 00 Yes [id number] 25mg Take 1 tablet by mouth in the morning. [facility] metoprolol succinate XL 25 mg 24 hr tablet 2021-0 7-15 00:00: 00 Yes [id number] 25mg Take 1 tablet by mouth in the morning. [facility] metoprolol succinate XL 25 mg 24 hr tablet 2021-0 7-15 00:00: 00 Yes [id number] 25mg Take 1 tablet by mouth in the morning. [facility] metoprolol succinate XL 25 mg 24 hr tablet 2021-0 7-15 00:00: 00 Yes [id number] 25mg Take 1 tablet by mouth in the morning. [facility] metoprolol succinate XL 25 mg 24 hr tablet 2021-0 7-15 00:00: 00 Yes [id number] 25mg Take 1 tablet by mouth in the morning. [facility] metoprolol succinate XL 25 mg 24 hr tablet 2-0 7-15 00:00: 00 Yes [id number] 25mg Take 1 tablet by mouth in the morning. [facility] metoprolol succinate XL 25 mg 24 hr tablet 2-0 7-15 00:00: 00 Yes [id number] 25mg Take 1 tablet by mouth in the morning. [facility] metoprolol succinate XL 25 mg 24 hr tablet 2-0 7-15 00:00: 00 Yes [id number] 25mg Take 1 tablet by mouth in the morning. [facility] metoprolol succinate XL 25 mg 24 hr tablet 2-0 7-15 00:00: 00 Yes [id number] 25mg Take 1 tablet by mouth in the morning. [facility] metoprolol succinate XL 25 mg 24 hr tablet 2021-0 7-15 00:00: 00 Yes [id number] 25mg Take 1 tablet by mouth in the morning. [facility] metoprolol succinate XL 25 mg 24 hr tablet 2021-0 7-15 00:00: 00 Yes [id number] 25mg Take 1 tablet by mouth in the morning. [facility] metoprolol succinate XL 25 mg 24 hr tablet 2021-0 7-15 00:00: 00 Yes [id number] 25mg Take 1 tablet by mouth in the morning. [facility] metoprolol succinate XL 25 mg 24 hr tablet 2021-0 7-15 00:00: 00 Yes [id number] 25mg Take 1 tablet by mouth in the morning. [facility] metoprolol succinate XL 25 mg 24 hr tablet 2021-0 7-15 00:00: 00 Yes [id number] 25mg Take 1 tablet by mouth in the morning. [facility] metoprolol succinate XL 25 mg 24 hr tablet 2021-0 7-15 00:00: 00 Yes [id number] 25mg Take 1 tablet by mouth in the morning. [facility] metoprolol succinate XL 25 mg 24 hr tablet 2021-0 715 00:00: 00 Yes [id number] 25mg Take 1 tablet by mouth in the morning. [facility] metoprolol succinate XL 25 mg 24 hr tablet 2021-0 715 00:00: 00 Yes [id number] 25mg Take 1 tablet by mouth in the morning. [facility] metoprolol succinate XL 25 mg 24 hr tablet 2021-0 7-15 00:00: 00 Yes [id number] 25mg Take 1 tablet by mouth in the morning. [facility] metoprolol succinate XL 25 mg 24 hr tablet 2-0 7-15 00:00: 00 Yes [id number] 25mg Take 1 tablet by mouth in the morning. [facility] metoprolol succinate XL 25 mg 24 hr tablet 2-0 7-15 00:00: 00 Yes [id number] 25mg Take 1 tablet by mouth in the morning. [facility] metoprolol succinate XL 25 mg 24 hr tablet 2-0 7-15 00:00: 00 Yes [id number] 25mg Take 1 tablet by mouth in the morning. [facility] metoprolol succinate XL 25 mg 24 hr tablet 2021-0 715 00:00: 00 Yes [id number] 25mg Take 1 tablet by mouth in the morning. [facility] metoprolol succinate XL 25 mg 24 hr tablet 2021-0 715 00:00: 00 Yes [id number] 25mg Take 1 tablet by mouth in the morning. [facility] metoprolol succinate XL 25 mg 24 hr tablet 2021-0 15 00:00: 00 Yes [id number] 25mg Take 1 tablet by mouth in the morning. [facility] metoprolol succinate XL 25 mg 24 hr tablet 2021-0 15 00:00: 00 Yes [id number] 25mg Take 1 tablet by mouth in the morning. [facility] metoprolol succinate XL 25 mg 24 hr tablet 2021-0 15 00:00: 00 Yes [id number] 25mg Take 1 tablet by mouth in the morning. [facility] metoprolol succinate XL 25 mg 24 hr tablet 2021-0 15 00:00: 00 Yes [id number] 25mg Take 1 tablet by mouth in the morning. [facility] metoprolol succinate XL 25 mg 24 hr tablet 2021-0 15 00:00: 00 Yes [id number] 25mg Take 1 tablet by mouth in the morning. [facility] metoprolol succinate XL 25 mg 24 hr tablet 2021-0 15 00:00: 00 Yes [id number] 25mg Take 1 tablet by mouth in the morning. [facility] metoprolol succinate XL 25 mg 24 hr tablet 2021-0 15 00:00: 00 Yes [id number] 25mg Take 1 tablet by mouth in the morning. [facility] metoprolol succinate XL 25 mg 24 hr tablet 2021-0 715 00:00: 00 Yes [id number] 25mg Take 1 tablet by mouth in the morning. [facility] metoprolol succinate XL 25 mg 24 hr tablet 2-0 7-15 00:00: 00 Yes [id number] 25mg Take 1 tablet by mouth in the morning. [facility] metoprolol succinate XL 25 mg 24 hr tablet 2021-0 7-15 00:00: 00 Yes [id number] 25mg Take 1 tablet by mouth in the morning. [facility] metoprolol succinate XL 25 mg 24 hr tablet 2021-0 7-15 00:00: 00 Yes [id number] 25mg Take 1 tablet by mouth in the morning. [facility] metoprolol succinate XL 25 mg 24 hr tablet 2021-0 7-15 00:00: 00 Yes [id number] 25mg Take 1 tablet by mouth in the morning. [facility] metoprolol succinate XL 25 mg 24 hr tablet 2021-0 7-15 00:00: 00 Yes [id number] 25mg Take 1 tablet by mouth in the morning. [facility] metoprolol succinate XL 25 mg 24 hr tablet 2021-0 7-15 00:00: 00 Yes [id number] 25mg Take 1 tablet by mouth in the morning. [facility] metoprolol succinate XL 25 mg 24 hr tablet 2021-0 -15 00:00: 00 Yes [id number] 25mg Take 1 tablet by mouth in the morning. [facility] metoprolol succinate XL 25 mg 24 hr tablet 2021-0 -15 00:00: 00 Yes [id number] 25mg Take 1 tablet by mouth in the morning. [facility] metoprolol succinate XL 25 mg 24 hr tablet 0 -15 00:00: 00 Yes [id number] 25mg Take 1 tablet by mouth in the morning. [facility] metoprolol succinate XL 25 mg 24 hr tablet 0 15 00:00: 00 Yes [id number] 25mg Take 1 tablet by mouth in the morning. [facility] metoprolol succinate XL 25 mg 24 hr tablet 2021-0 7-15 00:00: 00 Yes [id number] 25mg Take 1 tablet by mouth in the morning. [facility] metoprolol succinate XL 25 mg 24 hr tablet 2021-0 7-15 00:00: 00 Yes [id number] 25mg Take 1 tablet by mouth in the morning. [facility] metoprolol succinate XL 25 mg 24 hr tablet 2021-0 7-15 00:00: 00 Yes [id number] 25mg Take 1 tablet by mouth in the morning. [facility] metoprolol succinate XL 25 mg 24 hr tablet 2021-0 7-15 00:00: 00 Yes [id number] 25mg Take 1 tablet by mouth in the morning. [facility] metoprolol succinate XL 25 mg 24 hr tablet 2-0 7-15 00:00: 00 Yes [id number] 25mg Take 1 tablet by mouth in the morning. [facility] metoprolol succinate XL 25 mg 24 hr tablet 2021-0 7-15 00:00: 00 Yes [id number] 25mg Take 1 tablet by mouth in the morning. [facility] metoprolol succinate XL 25 mg 24 hr tablet 2021-0 7-15 00:00: 00 Yes [id number] 25mg Take 1 tablet by mouth in the morning. [facility] metoprolol succinate XL 25 mg 24 hr tablet 2021-0 7-15 00:00: 00 Yes [id number] 25mg Take 1 tablet by mouth in the morning. [facility] metoprolol succinate XL 25 mg 24 hr tablet 2021-0 715 00:00: 00 Yes [id number] 25mg Take 1 tablet by mouth in the morning. [facility] metoprolol succinate XL 25 mg 24 hr tablet 2021-0 715 00:00: 00 Yes [id number] 25mg Take 1 tablet by mouth in the morning. [facility] metoprolol succinate XL 25 mg 24 hr tablet 2021-0 7-15 00:00: 00 Yes [id number] 25mg Take 1 tablet by mouth in the morning. [facility] metoprolol succinate XL 25 mg 24 hr tablet 2-0 7-15 00:00: 00 Yes [id number] 25mg Take 1 tablet by mouth in the morning. [facility] metoprolol succinate XL 25 mg 24 hr tablet 2-0 7-15 00:00: 00 Yes [id number] 25mg Take 1 tablet by mouth in the morning. [facility] metoprolol succinate XL 25 mg 24 hr tablet 2021-0 7-15 00:00: 00 Yes [id number] 25mg Take 1 tablet by mouth in the morning. [facility] metoprolol succinate XL 25 mg 24 hr tablet 2021-0 7-15 00:00: 00 Yes [id number] 25mg Take 1 tablet by mouth in the morning. [facility] metoprolol succinate XL 25 mg 24 hr tablet 2021-0 7-15 00:00: 00 Yes [id number] 25mg Take 1 tablet by mouth in the morning. [facility] metoprolol succinate XL 25 mg 24 hr tablet 0 7-15 00:00: 00 Yes [id number] 25mg Take 1 tablet by mouth in the morning. [facility] metoprolol succinate XL 25 mg 24 hr tablet 2021-0 7-15 00:00: 00 Yes [id number] 25mg Take 1 tablet by mouth in the morning. [facility] metoprolol succinate XL 25 mg 24 hr tablet 2021-0 15 00:00: 00 Yes [id number] 25mg Take 1 tablet by mouth in the morning. [facility] metoprolol succinate XL 25 mg 24 hr tablet 0 715 00:00: 00 Yes [id number] 25mg Take 1 tablet by mouth in the morning. [facility] metoprolol succinate XL 25 mg 24 hr tablet 0 15 00:00: 00 Yes [id number] 25mg Take 1 tablet by mouth in the morning. [facility] metoprolol succinate XL 25 mg 24 hr tablet 2021-0 15 00:00: 00 Yes [id number] 25mg Take 1 tablet by mouth in the morning. [facility] metoprolol succinate XL 25 mg 24 hr tablet 2021-0 7-15 00:00: 00 Yes [id number] 25mg Take 1 tablet by mouth in the morning. [facility] metoprolol succinate XL 25 mg 24 hr tablet 2021-0 715 00:00: 00 Yes [id number] 25mg Take 1 tablet by mouth in the morning. [facility] metoprolol succinate XL 25 mg 24 hr tablet 2021-0 715 00:00: 00 02-05 00:00 :00 No [id number] 25mg Take 1 tablet by mouth in the morning. [facility] metoprolol succinate XL 25 mg 24 hr tablet 2-0 7-15 00:00: 00 02-05 00:00 :00 No [id number] 25mg Take 1 tablet by mouth in the morning. [facility] metoprolol succinate XL 25 mg 24 hr tablet 2-0 7-15 00:00: 00 02-05 00:00 :00 No [id number] 25mg Take 1 tablet by mouth in the morning. [facility] metoprolol succinate XL 25 mg 24 hr tablet 2-0 7-15 00:00: 00 02-05 00:00 :00 No [id number] 25mg Take 1 tablet by mouth in the morning. [facility] metoprolol succinate XL 25 mg 24 hr tablet 2-0 7-15 00:00: 00 02-05 00:00 :00 No [id number] 25mg Take 1 tablet by mouth in the morning. [facility] traZODone 50 mg tablet 2-0 4-18 00:00: 00 Yes [facility] traZODone 50 mg tablet 2-0 4-18 00:00: 00 Yes [facility] traZODone 50 mg tablet 2-0 4-18 00:00: 00 Yes [facility] traZODone 50 mg tablet 2-0 4-18 00:00: 00 Yes [facility] traZODone 50 mg tablet 2-0 4-18 00:00: 00 Yes [facility] traZODone 50 mg tablet 2022-0 4-18 00:00: 00 Yes [facility] traZODone 50 mg tablet 2-0 4-18 00:00: 00 Yes [facility] traZODone 50 mg tablet 2-0 4-18 00:00: 00 Yes [facility] traZODone 50 mg tablet 2-0 4-18 00:00: 00 Yes [facility] traZODone 50 mg tablet 2-0 4-18 00:00: 00 Yes [facility] traZODone 50 mg tablet 2-0 4-18 00:00: 00 Yes [facility] traZODone 50 mg tablet 2-0 4-18 00:00: 00 Yes [facility] traZODone 50 mg tablet 2-0 4-18 00:00: 00 Yes [facility] traZODone 50 mg tablet 2-0 4-18 00:00: 00 Yes [facility] traZODone 50 mg tablet 2-0 4-18 00:00: 00 Yes [facility] traZODone 50 mg tablet 2-0 4-18 00:00: 00 Yes [facility] traZODone 50 mg tablet 2-0 4-18 00:00: 00 Yes [facility] traZODone 50 mg tablet 2-0 4-18 00:00: 00 Yes [facility] traZODone 50 mg tablet 2-0 4-18 00:00: 00 Yes [facility] traZODone 50 mg tablet 2-0 4-18 00:00: 00 Yes [facility] traZODone 50 mg tablet 2-0 4-18 00:00: 00 Yes [facility] traZODone 50 mg tablet 2-0 4-18 00:00: 00 Yes [facility] traZODone 50 mg tablet 2-0 4-18 00:00: 00 Yes [facility] traZODone 50 mg tablet 2-0 4-18 00:00: 00 Yes [facility] traZODone 50 mg tablet 2-0 4-18 00:00: 00 Yes [facility] traZODone 50 mg tablet 2022-0 4-18 00:00: 00 Yes [facility] traZODone 50 mg tablet 2022-0 4-18 00:00: 00 Yes [facility] traZODone 50 mg tablet 2022-0 4-18 00:00: 00 Yes [facility] traZODone 50 mg tablet 2022-0 18 00:00: 00 Yes [facility] traZODone 50 mg tablet 2-0 418 00:00: 00 04-24 00:00 :00 No [facility] traZODone 50 mg tablet 2-0 418 00:00: 00 04-24 00:00 :00 No [facility] cyclobenzap rine 10 mg tablet 2020-0 05-24 09:53: 32 Yes 10mg Take 10 mg by mouth 3 (three) times daily as needed for Muscle Spasms. [facility] MELOXICAM ORAL 2020-0 05-24 09:53: 32 Yes Take by mouth as needed. [facility] 2020-0 05-24 09:53: 32 Yes 10mg Take 10 mg by mouth 3 (three) times daily as needed for Muscle Spasms. [facility] MELOXICAM ORAL 2020-0 05-24 09:53: 32 Yes Take by mouth as needed. [facility] cyclobenzap rine 10 mg tablet 2020-0 05-24 09:53: 32 Yes 10mg Take 10 mg by mouth 3 (three) times daily as needed for Muscle Spasms. [facility] MELOXICAM ORAL 2020-0 05-24 09:53: 32 Yes Take by mouth as needed. [facility] cyclobenzap rine 10 mg tablet 2020-0 05-24 09:53: 32 Yes 10mg Take 10 mg by mouth 3 (three) times daily as needed for Muscle Spasms. [facility] MELOXICAM ORAL 2020-0 05-24 09:53: 32 Yes Take by mouth as needed. [facility] cyclobenzap rine 10 mg tablet 2020-0 05-24 09:53: 32 Yes 10mg Take 10 mg by mouth 3 (three) times daily as needed for Muscle Spasms. [facility] MELOXICAM ORAL 2020-0 05-24 09:53: 32 Yes Take by mouth as needed. [facility] cyclobenzap rine 10 mg tablet 2020-0 05-24 09:53: 32 Yes 10mg Take 10 mg by mouth 3 (three) times daily as needed for Muscle Spasms. [facility] MELOXICAM ORAL 2020-0 05-24 09:53: 32 Yes Take by mouth as needed. [facility] cyclobenzap rine 10 mg tablet 2020-0 05-24 09:53: 32 Yes 10mg Take 10 mg by mouth 3 (three) times daily as needed for Muscle Spasms. [facility] MELOXICAM ORAL 2020-0 05-24 09:53: 32 Yes Take by mouth as needed. [facility] cyclobenzap rine 10 mg tablet 2020-0 05-24 09:53: 32 Yes 10mg Take 10 mg by mouth 3 (three) times daily as needed for Muscle Spasms. [facility] MELOXICAM ORAL 2020-0 05-24 09:53: 32 Yes Take by mouth as needed. [facility] cyclobenzap rine 10 mg tablet 2020-0 05-24 09:53: 32 Yes 10mg Take 10 mg by mouth 3 (three) times daily as needed for Muscle Spasms. [facility] MELOXICAM ORAL 2020-0 05-24 09:53: 32 Yes Take by mouth as needed. [facility] cyclobenzap rine 10 mg tablet 2020-0 05-24 09:53: 32 Yes 10mg Take 10 mg by mouth 3 (three) times daily as needed for Muscle Spasms. [facility] 2020-0 05-24 09:53: 32 Yes Take by mouth as needed. [facility] cyclobenzap rine 10 mg tablet 2020-0 05-24 09:53: 32 Yes 10mg Take 10 mg by mouth 3 (three) times daily as needed for Muscle Spasms. [facility]AL 2020-0 05-24 09:53: 32 Yes Take by mouth as needed. [facility] cyclobenzap rine 10 mg tablet 2020-0 05-24 09:53: 32 Yes 10mg Take 10 mg by mouth 3 (three) times daily as needed for Muscle Spasms. [facility] MELOXICAM ORAL 2020-0 05-24 09:53: 32 Yes Take by mouth as needed. [facility] cyclobenzap rine 10 mg tablet 2020-0 05-24 09:53: 32 Yes 10mg Take 10 mg by mouth 3 (three) times daily as needed for Muscle Spasms. [facility] MELOXICAM ORAL 2020-0 05-24 09:53: 32 Yes Take by mouth as needed. [facility] cyclobenzap rine 10 mg tablet 2020-0 05-24 09:53: 32 Yes 10mg Take 10 mg by mouth 3 (three) times daily as needed for Muscle Spasms. [facility] MELOXICAM ORAL 2020-0 05-24 09:53: 32 Yes Take by mouth as needed. [facility] cyclobenzap rine 10 mg tablet 2020-0 05-24 09:53: 32 Yes 10mg Take 10 mg by mouth 3 (three) times daily as needed for Muscle Spasms. [facility] MELOXICAM ORAL 2020-0 05-24 09:53: 32 Yes Take by mouth as needed. [facility] 2020-0 05-24 09:53: 32 Yes 10mg Take 10 mg by mouth 3 (three) times daily as [facility] MELOXICAM ORAL 2020-0 05-24 09:53: 32 Yes Take by mouth as needed. [facility] cyclobenzap rine 10 mg tablet 2020-0 05-24 09:53: 32 Yes 10mg Take 10 mg by mouth 3 (three) times daily as needed for Muscle Spasms. [facility] MELOXICAM ORAL 2020-0 9 09:53: 32 Yes Take by mouth as needed. [facility] cyclobenzap rine 10 mg tablet 2020-0 05-24 09:53: 32 Yes 10mg Take 10 mg by mouth 3 (three) times daily as needed for Muscle Spasms. [facility] MELOXICAM ORAL 2020-0 9 09:53: 32 Yes Take by mouth as needed. [facility] cyclobenzap rine 10 mg tablet 2020-0 05-24 09:53: 32 Yes 10mg Take 10 mg by mouth 3 (three) times daily as needed for Muscle Spasms. [facility] MELOXICAM ORAL 2020-0 05-24 09:53: 32 Yes Take by mouth as needed. [facility] cyclobenzap rine 10 mg tablet 2020-0 05-24 09:53: 32 Yes 10mg Take 10 mg by mouth 3 (three) times daily as needed for Muscle Spasms. [facility] MELOXICAM ORAL 2020-0 05-24 09:53: 32 Yes Take by mouth as needed. [facility] tablet 2020-0 05-24 09:53: 32 Yes 10mg Take 10 mg by mouth 3 (three) times daily as needed for Muscle Spasms. [facility] MELOXICAM ORAL 2020-0 05-24 09:53: 32 Yes Take by mouth as needed. [facility] cyclobenzap rine 10 mg tablet 2020-0 05-24 09:53: 32 Yes 10mg Take 10 mg by mouth 3 (three) times daily as needed for Muscle Spasms. [facility] MELOXICAM ORAL 2020-0 05-24 09:53: 32 Yes Take by mouth as needed. [facility] cyclobenzap rine 10 mg tablet 2020-0 05-24 09:53: 32 Yes 10mg Take 10 mg by mouth 3 (three) times daily as needed for Muscle Spasms. [facility] MELOXICAM ORAL 2020-0 05-24 09:53: 32 Yes Take by mouth as needed. [facility] tablet 2020-0 05-24 09:53: 32 Yes 10mg Take 10 mg by mouth 3 (three) times daily as needed for Muscle Spasms. [facility] MELOXICAM ORAL 2020-0 05-24 09:53: 32 Yes Take by mouth as needed. [facility] cyclobenzap rine 10 mg tablet 2020-0 05-24 09:53: 32 Yes 10mg Take 10 mg by mouth 3 (three) times daily as needed for Muscle Spasms. [facility] MELOXICAM ORAL 2020-0 05-24 09:53: 32 Yes Take by mouth as needed. [facility] cyclobenzap rine 10 mg tablet 2020-0 05-24 09:53: 32 Yes 10mg Take 10 mg by mouth 3 (three) times daily as needed for Muscle Spasms. [facility] MELOXICAM ORAL 2020-0 05-24 09:53: 32 Yes Take by mouth as needed. [facility] cyclobenzap rine 10 mg tablet 2020-0 05-24 09:53: 32 Yes 10mg Take 10 mg by mouth 3 (three) times daily as needed for Muscle Spasms. [facility] MELOXICAM ORAL 2020-0 05-24 09:53: 32 Yes Take by mouth as needed. [facility] cyclobenzap rine 10 mg tablet 2020-0 05-24 09:53: 32 Yes 10mg Take 10 mg by mouth 3 (three) times daily as needed for Muscle Spasms. [facility] MELOXICAM ORAL 2020-0 05-24 09:53: 32 Yes Take by mouth as needed. [facility] mg tablet 0 05-24 09:53: 32 Yes 10mg Take 10 mg by mouth 3 (three) times daily as needed for Muscle Spasms. [facility] MELOXICAM ORAL 2020-0 05-24 09:53: 32 Yes Take by mouth as needed. [facility] cyclobenzap rine 10 mg tablet 2020-0 05-24 09:53: 32 Yes 10mg Take 10 mg by mouth 3 (three) times daily as needed for Muscle Spasms. [facility] MELOXICAM ORAL 2020-0 05-24 09:53: 32 Yes Take by mouth as needed. [facility] cyclobenzap rine 10 mg tablet 2020-0 05-24 09:53: 32 Yes 10mg Take 10 mg by mouth 3 (three) times daily as needed for Muscle Spasms. [facility] MELOXICAM ORAL 2020-0 05-24 09:53: 32 Yes Take by mouth as needed. [facility] mg tablet 2020-0 05-24 09:53: 32 Yes 10mg Take 10 mg by mouth 3 (three) times daily as needed for Muscle Spasms. [facility] MELOXICAM ORAL 2020-0 05-24 09:53: 32 Yes Take by mouth as needed. [facility] rine 10 mg tablet 2020-0 05-24 09:53: 32 Yes 10mg Take 10 mg by mouth 3 (three) times daily as needed for Muscle Spasms. [facility] MELOXICAM ORAL 2020-0 05-24 09:53: 32 Yes Take by mouth as needed. [facility]ap rine 10 mg tablet 2020-0 05-24 09:53: 32 Yes 10mg Take 10 mg by mouth 3 (three) times daily as needed for Muscle Spasms. [facility] MELOXICAM ORAL 2020-0 05-24 09:53: 32 Yes Take by mouth as needed. [facility]ap rine 10 mg tablet 2020-0 05-24 09:53: 32 Yes 10mg Take 10 mg by mouth 3 (three) times daily as needed for Muscle Spasms. [facility] MELOXICAM ORAL 2020-0 05-24 09:53: 32 Yes Take by mouth as needed. [facility] cyclobenzap rine 10 mg tablet 2020-0 05-24 09:53: 32 Yes 10mg Take 10 mg by mouth 3 (three) times daily as needed for Muscle Spasms. [facility] MELOXICAM ORAL 2020-0 05-24 09:53: 32 Yes Take by mouth as needed. [facility] cyclobenzap rine 10 mg tablet 2020-0 05-24 09:53: 32 Yes 10mg Take 10 mg by mouth 3 (three) times daily as needed for Muscle Spasms. [facility] MELOXICAM ORAL 2020-0 05-24 09:53: 32 Yes Take by mouth as needed. [facility] cyclobenzap rine 10 mg tablet 2020-0 05-24 09:53: 32 Yes 10mg Take 10 mg by mouth 3 (three) times daily as needed for Muscle Spasms. [facility] MELOXICAM ORAL 2020-0 05-24 09:53: 32 Yes Take by mouth as needed. [facility] cyclobenzap rine 10 mg tablet 2020-0 05-24 09:53: 32 Yes 10mg Take 10 mg by mouth 3 (three) times daily as needed for Muscle Spasms. [facility] MELOXICAM ORAL 2020-0 05-24 09:53: 32 Yes Take by mouth as needed. [facility] cyclobenzap rine 10 mg tablet 2020-0 05-24 09:53: 32 Yes 10mg Take 10 mg by mouth 3 (three) times daily as needed for Muscle Spasms. [facility] MELOXICAM ORAL 2020-0 05-24 09:53: 32 Yes Take by mouth as needed. [facility] cyclobenzap rine 10 mg tablet 2020-0 05-24 09:53: 32 Yes 10mg Take 10 mg by mouth 3 (three) times daily as needed for Muscle Spasms. [facility] MELOXICAM ORAL 2020-0 05-24 09:53: 32 Yes Take by mouth as needed. [facility] cyclobenzap rine 10 mg tablet 2020-0 05-24 09:53: 32 Yes 10mg Take 10 mg by mouth 3 (three) times daily as needed for Muscle Spasms. [facility] MELOXICAM ORAL 2020-0 05-24 09:53: 32 Yes Take by mouth as needed. [facility] cyclobenzap rine 10 mg tablet 2020-0 05-24 09:53: 32 Yes 10mg Take 10 mg by mouth 3 (three) times daily as needed for Muscle Spasms. [facility] MELOXICAM ORAL 2020-0 05-24 09:53: 32 Yes Take by mouth as needed. [facility] cyclobenzap rine 10 mg tablet 2020-0 05-24 09:53: 32 Yes 10mg Take 10 mg by mouth 3 (three) times daily as needed for Muscle Spasms. [facility] MELOXICAM ORAL 0 05-24 09:53: 32 Yes Take by mouth as needed. [facility] r[facility] 10 mg tablet 2020-0 05-24 09:53: 32 Yes 10mg Take 10 mg by mouth 3 (three) times daily as needed for Muscle Spasms. [facility] MELOXICAM ORAL 2020-0 05-24 09:53: 32 Yes Take by mouth as needed. [facility] cyclobenzap rine 10 mg tablet 2020-0 05-24 09:53: 32 Yes 10mg Take 10 mg by mouth 3 (three) times daily as needed for Muscle Spasms. [facility] MELOXICAM ORAL 2020-0 05-24 09:53: 32 Yes Take by mouth as needed. [facility] rine 10 mg tablet 0 05-24 09:53: 32 Yes 10mg Take 10 mg by mouth 3 (three) times daily as needed for Muscle Spasms. [facility] MELOXICAM ORAL 0 05-24 09:53: 32 Yes Take by mouth as needed. [facility] rine 10 mg tablet 0 05-24 09:53: 32 Yes 10mg Take 10 mg by mouth 3 (three) times daily as needed for Muscle Spasms. [facility] MELOXICAM ORAL 2020-0 05-24 09:53: 32 Yes Take by mouth as needed. [facility] rine 10 mg tablet 2020-0 05-24 09:53: 32 Yes 10mg Take 10 mg by mouth 3 (three) times daily as needed for Muscle Spasms. [facility] MELOXICAM ORAL 2020-0 05-24 09:53: 32 Yes Take by mouth as needed. [facility] cyclobenzap rine 10 mg tablet 2020-0 05-24 09:53: 32 Yes 10mg Take 10 mg by mouth 3 (three) times daily as needed for Muscle Spasms. [facility] MELOXICAM ORAL 2020-0 05-24 09:53: 32 Yes Take by mouth as needed. [facility] cyclobenzap rine 10 mg tablet 2020-0 05-24 09:53: 32 Yes 10mg Take 10 mg by mouth 3 (three) times daily as needed for Muscle Spasms. [facility] MELOXICAM ORAL 2020-0 05-24 09:53: 32 Yes Take by mouth as needed. [facility] cyclobenzap rine 10 mg tablet 2020-0 05-24 09:53: 32 Yes 10mg Take 10 mg by mouth 3 (three) times daily as needed for Muscle Spasms. [facility] MELOXICAM ORAL 2020-0 05-24 09:53: 32 Yes Take by mouth as needed. [facility] rine 10 mg tablet 2020-0 05-24 09:53: 32 Yes 10mg Take 10 mg by mouth 3 (three) times daily as needed for Muscle Spasms. [facility] MELOXICAM ORAL 2020-0 05-24 09:53: 32 Yes Take by mouth as needed. [facility]ap rine 10 mg tablet 2020-0 05-24 09:53: 32 Yes 10mg Take 10 mg by mouth 3 (three) times daily as needed for Muscle Spasms. [facility] MELOXICAM ORAL 2020-0 05-24 09:53: 32 Yes Take by mouth as needed. [facility]ap rine 10 mg tablet 2020-0 05-24 09:53: 32 Yes 10mg Take 10 mg by mouth 3 (three) times daily as needed for Muscle Spasms. [facility] MELOXICAM ORAL 2020-0 05-24 09:53: 32 Yes Take by mouth as needed. [facility]ap rine 10 mg tablet 2020-0 05-24 09:53: 32 Yes 10mg Take 10 mg by mouth 3 (three) times daily as needed for Muscle Spasms. [facility] MELOXICAM ORAL 2020-0 05-24 09:53: 32 Yes Take by mouth as needed. [facility]ap rine 10 mg tablet 2020-0 05-24 09:53: 32 Yes 10mg Take 10 mg by mouth 3 (three) times daily as needed for Muscle Spasms. [facility] MELOXICAM ORAL 2020-0 05-24 09:53: 32 Yes Take by mouth as needed. [facility] cyclobenzap rine 10 mg tablet 2020-0 05-24 09:53: 32 Yes 10mg Take 10 mg by mouth 3 (three) times daily as needed for Muscle Spasms. [facility] MELOXICAM ORAL 2020-0 05-24 09:53: 32 Yes Take by mouth as needed. [facility] cyclobenzap rine 10 mg tablet 2020-0 05-24 09:53: 32 Yes 10mg Take 10 mg by mouth 3 (three) times daily as needed for Muscle Spasms. [facility] MELOXICAM ORAL 2020-0 05-24 09:53: 32 Yes Take by mouth as needed. [facility] cyclobenzap rine 10 mg tablet 2020-0 05-24 09:53: 32 Yes 10mg Take 10 mg by mouth 3 (three) times daily as needed for Muscle Spasms. [facility] MELOXICAM ORAL 2020-0 05-24 09:53: 32 Yes Take by mouth as needed. [facility] rine 10 mg tablet 2020-0 05-24 09:53: 32 Yes 10mg Take 10 mg by mouth 3 (three) times daily as needed for Muscle Spasms. [facility] MELOXICAM ORAL 2020-0 05-24 09:53: 32 Yes Take by mouth as needed. [facility] cyclobenzap rine 10 mg tablet 2020-0 05-24 09:53: 32 Yes 10mg Take 10 mg by mouth 3 (three) times daily as needed for Muscle Spasms. [facility] MELOXICAM ORAL 2020-0 05-24 09:53: 32 Yes Take by mouth as needed. [facility] cyclobenzap rine 10 mg tablet 2020-0 05-24 09:53: 32 Yes 10mg Take 10 mg by mouth 3 (three) times daily as needed for Muscle Spasms. [facility] MELOXICAM ORAL 2020-0 05-24 09:53: 32 Yes Take by mouth as needed. [facility] cyclobenzap rine 10 mg tablet 2020-0 05-24 09:53: 32 Yes 10mg Take 10 mg by mouth 3 (three) times daily as needed for Muscle Spasms. [facility] MELOXICAM ORAL 2020-0 05-24 09:53: 32 Yes Take by mouth as needed. [facility] cyclobenzap rine 10 mg tablet 2020-0 05-24 09:53: 32 Yes 10mg Take 10 mg by mouth 3 (three) times daily as needed for Muscle Spasms. [facility] MELOXICAM ORAL 2020-0 05-24 09:53: 32 Yes Take by mouth as needed. [facility] cyclobenzap rine 10 mg tablet 2020-0 05-24 09:53: 32 Yes 10mg Take 10 mg by mouth 3 (three) times daily as needed for Muscle Spasms. [facility] MELOXICAM ORAL 2020-0 05-24 09:53: 32 Yes Take by mouth as needed. [facility] cyclobenzap rine 10 mg tablet 2020-0 05-24 09:53: 32 Yes 10mg Take 10 mg by mouth 3 (three) times daily as needed for Muscle Spasms. [facility] MELOXICAM ORAL 2020-0 05-24 09:53: 32 Yes Take by mouth as needed. [facility] cyclobenzap rine 10 mg tablet 2020-0 05-24 09:53: 32 Yes 10mg Take 10 mg by mouth 3 (three) times daily as needed for Muscle Spasms. [facility] MELOXICAM ORAL 2020-0 05-24 09:53: 32 Yes Take by mouth as needed. [facility] 10 mg tablet 2020-0 05-24 09:53: 32 Yes 10mg Take 10 mg by mouth 3 (three) times daily as needed for Muscle Spasms. [facility] MELOXICAM ORAL 2020-0 05-24 09:53: 32 Yes Take by mouth as needed. [facility] cyclobenzap rine 10 mg tablet 2020-0 05-24 09:53: 32 Yes 10mg Take 10 mg by mouth 3 (three) times daily as needed for Muscle Spasms. [facility] MELOXICAM ORAL 2020-0 05-24 09:53: 32 Yes Take by mouth as needed. [facility] cyclobenzap rine 10 mg tablet 2020-0 05-24 09:53: 32 Yes 10mg Take 10 mg by mouth 3 (three) times daily as needed for Muscle Spasms. [facility] MELOXICAM ORAL 2020-0 05-24 09:53: 32 Yes Take by mouth as needed. [facility] cyclobenzap rine 10 mg tablet 2020-0 05-24 09:53: 32 Yes 10mg Take 10 mg by mouth 3 (three) times daily as needed for Muscle Spasms. [facility] MELOXICAM ORAL 2020-0 05-24 09:53: 32 Yes Take by mouth as needed. [facility] cyclobenzap rine 10 mg tablet 2020-0 05-24 09:53: 32 Yes 10mg Take 10 mg by mouth 3 (three) times daily as needed for Muscle Spasms. [facility] MELOXICAM ORAL 2020-0 05-24 09:53: 32 Yes Take by mouth as needed. [facility] cyclobenzap rine 10 mg tablet 2020-0 05-24 09:53: 32 Yes 10mg Take 10 mg by mouth 3 (three) times daily as needed for Muscle Spasms. [facility] MELOXICAM ORAL 2020-0 05-24 09:53: 32 Yes Take by mouth as needed. [facility] cyclobenzap rine 10 mg tablet 2020-0 05-24 09:53: 32 Yes 10mg Take 10 mg by mouth 3 (three) times daily as needed for Muscle Spasms. [facility] MELOXICAM ORAL 2020-0 05-24 09:53: 32 Yes Take by mouth as needed. [facility] cyclobenzap rine 10 mg tablet 2020-0 05-24 09:53: 32 Yes 10mg Take 10 mg by mouth 3 (three) times daily as needed for Muscle Spasms. [facility] MELOXICAM ORAL 2020-0 05-24 09:53: 32 Yes Take by mouth as needed. [facility] cyclobenzap rine 10 mg tablet 2020-0 05-24 09:53: 32 Yes 10mg Take 10 mg by mouth 3 (three) times daily as needed for Muscle Spasms. [facility] MELOXICAM ORAL 2020-0 05-24 09:53: 32 Yes Take by mouth as needed. [facility] cyclobenzap rine 10 mg tablet 2020-0 05-24 09:53: 32 Yes 10mg Take 10 mg by mouth 3 (three) times daily as needed for Muscle Spasms. [facility] MELOXICAM ORAL 2020-0 05-24 09:53: 32 Yes Take by mouth as needed. [facility] 10 mg tablet 2020-0 05-24 09:53: 32 Yes 10mg Take 10 mg by mouth 3 (three) times daily as needed for Muscle Spasms. [facility] MELOXICAM ORAL 2020-0 05-24 09:53: 32 Yes Take by mouth as needed. [facility] cyclobenzap rine 10 mg tablet 2020-0 05-24 09:53: 32 Yes 10mg Take 10 mg by mouth 3 (three) times daily as needed for Muscle Spasms. [facility] MELOXICAM ORAL 2020-0 05-24 09:53: 32 Yes Take by mouth as needed. [facility] cyclobenzap rine 10 mg tablet 2020-0 05-24 09:53: 32 Yes 10mg Take 10 mg by mouth 3 (three) times daily as needed for Muscle Spasms. [facility] MELOXICAM ORAL 2020-0 05-24 09:53: 32 Yes Take by mouth as needed. [facility] cyclobenzap rine 10 mg tablet 2020-0 05-24 09:53: 32 Yes 10mg Take 10 mg by mouth 3 (three) times daily as needed for Muscle Spasms. [facility] MELOXICAM ORAL 2020-0 05-24 09:53: 32 Yes Take by mouth as needed. [facility] 10 mg tablet 2020-0 05-24 09:53: 32 Yes 10mg Take 10 mg by mouth 3 (three) times daily as needed for Muscle Spasms. [facility] MELOXICAM ORAL 2020-0 05-24 09:53: 32 Yes Take by mouth as needed. [facility] cyclobenzap rine 10 mg tablet 2020-0 05-24 09:53: 32 Yes 10mg Take 10 mg by mouth 3 (three) times daily as needed for Muscle Spasms. [facility] MELOXICAM ORAL 2020-0 05-24 09:53: 32 Yes Take by mouth as needed. [facility] [facility] tablet 2020-0 05-24 09:53: 32 Yes 10mg Take 10 mg by mouth 3 (three) times daily as needed for Muscle Spasms. [facility] MELOXICAM ORAL 2020-0 05-24 09:53: 32 Yes Take by mouth as needed. [facility] cyclobenzap rine 10 mg tablet 2020-0 05-24 09:53: 32 Yes 10mg Take 10 mg by mouth 3 (three) times daily as needed for Muscle Spasms. [facility] MELOXICAM ORAL 2020-0 05-24 09:53: 32 Yes Take by mouth as needed. [facility] rine 10 mg tablet 2020-0 05-24 09:53: 32 Yes 10mg Take 10 mg by mouth 3 (three) times daily as needed for Muscle Spasms. [facility] MELOXICAM ORAL 2020-0 05-24 09:53: 32 Yes Take by mouth as needed. [facility] rine 10 mg tablet 2020-0 05-24 09:53: 32 Yes 10mg Take 10 mg by mouth 3 (three) times daily as needed for Muscle Spasms. [facility] MELOXICAM ORAL 2020-0 05-24 09:53: 32 Yes Take by mouth as needed. [facility]ap rine 10 mg tablet 2020-0 05-24 09:53: 32 Yes 10mg Take 10 mg by mouth 3 (three) times daily as needed for Muscle Spasms. [facility] MELOXICAM ORAL 2020-0 05-24 09:53: 32 Yes Take by mouth as needed. [facility] cyclobenzap rine 10 mg tablet 2020-0 05-24 09:53: 32 Yes 10mg Take 10 mg by mouth 3 (three) times daily as needed for Muscle Spasms. [facility] MELOXICAM ORAL 2020-0 05-24 09:53: 32 Yes Take by mouth as needed. [facility] cyclobenzap rine 10 mg tablet 2020-0 05-24 09:53: 32 Yes 10mg Take 10 mg by mouth 3 (three) times daily as needed for Muscle Spasms. [facility] MELOXICAM ORAL 2020-0 05-24 09:53: 32 Yes Take by mouth as needed. [facility] cyclobenzap rine 10 mg tablet 2020-0 05-24 09:53: 32 Yes 10mg Take 10 mg by mouth 3 (three) times daily as needed for Muscle Spasms. [facility] MELOXICAM ORAL 2020-0 05-24 09:53: 32 Yes Take by mouth as needed. [facility] cyclobenzap rine 10 mg tablet 2020-0 05-24 09:53: 32 Yes 10mg Take 10 mg by mouth 3 (three) times daily as needed for Muscle Spasms. [facility] MELOXICAM ORAL 2020-0 05-24 09:53: 32 Yes Take by mouth as needed. [facility] cyclobenzap rine 10 mg tablet 2020-0 05-24 09:53: 32 Yes 10mg Take 10 mg by mouth 3 (three) times daily as needed for Muscle Spasms. [facility] MELOXICAM ORAL 2020-0 05-24 09:53: 32 Yes Take by mouth as needed. [facility] aspirin 81 mg chewable tablet 2020-0 01-27 00:00: 00 Yes [id number] 81mg Take 1 tablet by mouth daily. [facility] aspirin 81 mg chewable tablet 2020-0 15 00:00: 00 Yes [id number] 81mg Take 1 tablet by mouth daily. [facility] aspirin 81 mg chewable tablet 1-0 5-15 00:00: 00 Yes [id number] 81mg Take 1 tablet by mouth daily. [facility] aspirin 81 mg chewable tablet 1-0 5-15 00:00: 00 Yes [id number] 81mg Take 1 tablet by mouth daily. [facility] aspirin 81 mg chewable tablet 1-0 5-15 00:00: 00 Yes [id number] 81mg Take 1 tablet by mouth daily. [facility] aspirin 81 mg chewable tablet 1-0 5-15 00:00: 00 Yes [id number] 81mg Take 1 tablet by mouth daily. [facility] aspirin 81 mg chewable tablet 1-0 5-15 00:00: 00 Yes [id number] 81mg Take 1 tablet by mouth daily. [facility] aspirin 81 mg chewable tablet 1-0 5-15 00:00: 00 Yes [id number] 81mg Take 1 tablet by mouth daily. [facility] aspirin 81 mg chewable tablet 1-0 5-15 00:00: 00 Yes [id number] 81mg Take 1 tablet by mouth daily. [facility] aspirin 81 mg chewable tablet 1-0 5-15 00:00: 00 Yes [id number] 81mg Take 1 tablet by mouth daily. [facility] aspirin 81 mg chewable tablet 1-0 5-15 00:00: 00 Yes [id number] 81mg Take 1 tablet by mouth daily. [facility] aspirin 81 mg chewable tablet 1-0 5-15 00:00: 00 Yes [id number] 81mg Take 1 tablet by mouth daily. [facility] aspirin 81 mg chewable tablet 1-0 5-15 00:00: 00 Yes [id number] 81mg Take 1 tablet by mouth daily. [facility] aspirin 81 mg chewable tablet 1-0 5-15 00:00: 00 Yes [id number] 81mg Take 1 tablet by mouth daily. [facility] aspirin 81 mg chewable tablet 1-0 5-15 00:00: 00 Yes [id number] 81mg Take 1 tablet by mouth daily. [facility] aspirin 81 mg chewable tablet 1-0 5-15 00:00: 00 Yes [id number] 81mg Take 1 tablet by mouth daily. [facility] aspirin 81 mg chewable tablet 1-0 5-15 00:00: 00 Yes [id number] 81mg Take 1 tablet by mouth daily. [facility] aspirin 81 mg chewable tablet 1-0 5-15 00:00: 00 Yes [id number] 81mg Take 1 tablet by mouth daily. [facility] aspirin 81 mg chewable tablet 1-0 5-15 00:00: 00 Yes [id number] 81mg Take 1 tablet by mouth daily. [facility] aspirin 81 mg chewable tablet 1-0 5-15 00:00: 00 Yes [id number] 81mg Take 1 tablet by mouth daily. [facility] aspirin 81 mg chewable tablet 1-0 5-15 00:00: 00 Yes [id number] 81mg Take 1 tablet by mouth daily. [facility] aspirin 81 mg chewable tablet 1-0 5-15 00:00: 00 Yes [id number] 81mg Take 1 tablet by mouth daily. [facility] aspirin 81 mg chewable tablet 1-0 5-15 00:00: 00 Yes [id number] 81mg Take 1 tablet by mouth daily. [facility] aspirin 81 mg chewable tablet 1-0 5-15 00:00: 00 Yes [id number] 81mg Take 1 tablet by mouth daily. [facility] aspirin 81 mg chewable tablet 1-0 5-15 00:00: 00 Yes [id number] 81mg Take 1 tablet by mouth daily. [facility] aspirin 81 mg chewable tablet 1-0 5-15 00:00: 00 Yes [id number] 81mg Take 1 tablet by mouth daily. [facility] aspirin 81 mg chewable tablet 1-0 5-15 00:00: 00 Yes [id number] 81mg Take 1 tablet by mouth daily. [facility] aspirin 81 mg chewable tablet 1-0 5-15 00:00: 00 Yes [id number] 81mg Take 1 tablet by mouth daily. [facility] aspirin 81 mg chewable tablet 1-0 5-15 00:00: 00 Yes [id number] 81mg Take 1 tablet by mouth daily. [facility] aspirin 81 mg chewable tablet 1-0 5-15 00:00: 00 Yes [id number] 81mg Take 1 tablet by mouth daily. [facility] aspirin 81 mg chewable tablet 1-0 5-15 00:00: 00 Yes [id number] 81mg Take 1 tablet by mouth daily. [facility] aspirin 81 mg chewable tablet 1-0 5-15 00:00: 00 Yes [id number] 81mg Take 1 tablet by mouth daily. [facility] aspirin 81 mg chewable tablet 1-0 5-15 00:00: 00 Yes [id number] 81mg Take 1 tablet by mouth daily. [facility] aspirin 81 mg chewable tablet 1-0 5-15 00:00: 00 Yes [id number] 81mg Take 1 tablet by mouth daily. [facility] aspirin 81 mg chewable tablet 1-0 5-15 00:00: 00 Yes [id number] 81mg Take 1 tablet by mouth daily. [facility] aspirin 81 mg chewable tablet 1-0 5-15 00:00: 00 Yes [id number] 81mg Take 1 tablet by mouth daily. [facility] aspirin 81 mg chewable tablet 1-0 5-15 00:00: 00 Yes [id number] 81mg Take 1 tablet by mouth daily. [facility] aspirin 81 mg chewable tablet 1-0 5-15 00:00: 00 Yes [id number] 81mg Take 1 tablet by mouth daily. [facility] aspirin 81 mg chewable tablet 1-0 5-15 00:00: 00 Yes [id number] 81mg Take 1 tablet by mouth daily. [facility] aspirin 81 mg chewable tablet 1-0 5-15 00:00: 00 Yes [id number] 81mg Take 1 tablet by mouth daily. [facility] aspirin 81 mg chewable tablet 1-0 5-15 00:00: 00 Yes [id number] 81mg Take 1 tablet by mouth daily. [facility] aspirin 81 mg chewable tablet 1-0 5-15 00:00: 00 Yes [id number] 81mg Take 1 tablet by mouth daily. [facility] aspirin 81 mg chewable tablet 1-0 5-15 00:00: 00 Yes [id number] 81mg Take 1 tablet by mouth daily. [facility] aspirin 81 mg chewable tablet 1-0 5-15 00:00: 00 Yes [id number] 81mg Take 1 tablet by mouth daily. [facility] aspirin 81 mg chewable tablet 1-0 5-15 00:00: 00 Yes [id number] 81mg Take 1 tablet by mouth daily. [facility] aspirin 81 mg chewable tablet 1-0 5-15 00:00: 00 Yes [id number] 81mg Take 1 tablet by mouth daily. [facility] aspirin 81 mg chewable tablet 1-0 5-15 00:00: 00 Yes [id number] 81mg Take 1 tablet by mouth daily. [facility] aspirin 81 mg chewable tablet 1-0 5-15 00:00: 00 Yes [id number] 81mg Take 1 tablet by mouth daily. [facility] aspirin 81 mg chewable tablet 1-0 -15 00:00: 00 Yes [id number] 81mg Take 1 tablet by mouth daily. [facility] aspirin 81 mg chewable tablet 1-0 5-15 00:00: 00 Yes [id number] 81mg Take 1 tablet by mouth daily. [facility] aspirin 81 mg chewable tablet 1-0 5-15 00:00: 00 Yes [id number] 81mg Take 1 tablet by mouth daily. [facility] aspirin 81 mg chewable tablet 1-0 5-15 00:00: 00 Yes [id number] 81mg Take 1 tablet by mouth daily. [facility] aspirin 81 mg chewable tablet 1-0 5-15 00:00: 00 Yes [id number] 81mg Take 1 tablet by mouth daily. [facility] aspirin 81 mg chewable tablet 1-0 5-15 00:00: 00 Yes [id number] 81mg Take 1 tablet by mouth daily. [facility] aspirin 81 mg chewable tablet 1-0 5-15 00:00: 00 Yes [id number] 81mg Take 1 tablet by mouth daily. [facility] aspirin 81 mg chewable tablet 1-0 5-15 00:00: 00 Yes [id number] 81mg Take 1 tablet by mouth daily. [facility] aspirin 81 mg chewable tablet 1-0 5-15 00:00: 00 Yes [id number] 81mg Take 1 tablet by mouth daily. [facility] aspirin 81 mg chewable tablet 1-0 5-15 00:00: 00 Yes [id number] 81mg Take 1 tablet by mouth daily. [facility] aspirin 81 mg chewable tablet 1-0 5-15 00:00: 00 Yes [id number] 81mg Take 1 tablet by mouth daily. [facility] aspirin 81 mg chewable tablet 1-0 5-15 00:00: 00 Yes [id number] 81mg Take 1 tablet by mouth daily. [facility] aspirin 81 mg chewable tablet 1-0 5-15 00:00: 00 Yes [id number] 81mg Take 1 tablet by mouth daily. [facility] aspirin 81 mg chewable tablet 1-0 5-15 00:00: 00 Yes [id number] 81mg Take 1 tablet by mouth daily. [facility] aspirin 81 mg chewable tablet 1-0 5-15 00:00: 00 Yes [id number] 81mg Take 1 tablet by mouth daily. [facility] aspirin 81 mg chewable tablet 1-0 5-15 00:00: 00 Yes [id number] 81mg Take 1 tablet by mouth daily. [facility] aspirin 81 mg chewable tablet 1-0 5-15 00:00: 00 Yes [id number] 81mg Take 1 tablet by mouth daily. [facility] aspirin 81 mg chewable tablet 1-0 5-15 00:00: 00 Yes [id number] 81mg Take 1 tablet by mouth daily. [facility] aspirin 81 mg chewable tablet 1-0 5-15 00:00: 00 Yes [id number] 81mg Take 1 tablet by mouth daily. [facility] aspirin 81 mg chewable tablet 1-0 5-15 00:00: 00 Yes [id number] 81mg Take 1 tablet by mouth daily. [facility] aspirin 81 mg chewable tablet 1-0 5-15 00:00: 00 Yes [id number] 81mg Take 1 tablet by mouth daily. [facility] aspirin 81 mg chewable tablet 1-0 5-15 00:00: 00 Yes [id number] 81mg Take 1 tablet by mouth daily. [facility] aspirin 81 mg chewable tablet 1-0 5-15 00:00: 00 Yes [id number] 81mg Take 1 tablet by mouth daily. [facility] aspirin 81 mg chewable tablet 1-0 5-15 00:00: 00 Yes [id number] 81mg Take 1 tablet by mouth daily. [facility] aspirin 81 mg chewable tablet 1-0 5-15 00:00: 00 Yes [id number] 81mg Take 1 tablet by mouth daily. [facility] aspirin 81 mg chewable tablet 1-0 5-15 00:00: 00 Yes [id number] 81mg Take 1 tablet by mouth daily. [facility] aspirin 81 mg chewable tablet 1-0 5-15 00:00: 00 Yes [id number] 81mg Take 1 tablet by mouth daily. [facility] aspirin 81 mg chewable tablet 1-0 5-15 00:00: 00 Yes [id number] 81mg Take 1 tablet by mouth daily. [facility] aspirin 81 mg chewable tablet 1-0 5-15 00:00: 00 Yes [id number] 81mg Take 1 tablet by mouth daily. [facility] aspirin 81 mg chewable tablet 1-0 5-15 00:00: 00 Yes [id number] 81mg Take 1 tablet by mouth daily. [facility] aspirin 81 mg chewable tablet 1-0 5-15 00:00: 00 Yes [id number] 81mg Take 1 tablet by mouth daily. [facility] aspirin 81 mg chewable tablet 1-0 5-15 00:00: 00 Yes [id number] 81mg Take 1 tablet by mouth daily. [facility] aspirin 81 mg chewable tablet 1-0 5-15 00:00: 00 Yes [id number] 81mg Take 1 tablet by mouth daily. [facility] aspirin 81 mg chewable tablet 1-0 5-15 00:00: 00 Yes [id number] 81mg Take 1 tablet by mouth daily. [facility] aspirin 81 mg chewable tablet 1-0 5-15 00:00: 00 Yes [id number] 81mg Take 1 tablet by mouth daily. [facility] aspirin 81 mg chewable tablet 1-0 5-15 00:00: 00 Yes [id number] 81mg Take 1 tablet by mouth daily. [facility] aspirin 81 mg chewable tablet 1-0 5-15 00:00: 00 Yes [id number] 81mg Take 1 tablet by mouth daily. [facility] aspirin 81 mg chewable tablet 1-0 5-15 00:00: 00 Yes [id number] 81mg Take 1 tablet by mouth daily. [facility] aspirin 81 mg chewable tablet 1-0 5-15 00:00: 00 Yes [id number] 81mg Take 1 tablet by mouth daily. [facility] aspirin 81 mg chewable tablet 1-0 5-15 00:00: 00 Yes [id number] 81mg Take 1 tablet by mouth daily. [facility] aspirin 81 mg chewable tablet 1-0 5-15 00:00: 00 Yes [id number] 81mg Take 1 tablet by mouth daily. [facility] aspirin 81 mg chewable tablet 1-0 5-15 00:00: 00 Yes [id number] 81mg Take 1 tablet by mouth daily. [facility] aspirin 81 mg chewable tablet 1-0 5-15 00:00: 00 Yes [id number] 81mg Take 1 tablet by mouth daily. [facility] aspirin 81 mg chewable tablet 1-0 5-15 00:00: 00 Yes [id number] 81mg Take 1 tablet by mouth daily. [facility] aspirin 81 mg chewable tablet 1-0 5-15 00:00: 00 Yes [id number] 81mg Take 1 tablet by mouth daily. [facility] aspirin 81 mg chewable tablet 1-0 5-15 00:00: 00 Yes [id number] 81mg Take 1 tablet by mouth daily. [facility] amLODIPine 10 mg tablet 0 15 00:00: 00 05-02 00:00 :00 No [id number] 10mg Take 1 tablet by mouth daily. [facility] amLODIPine 10 mg tablet 0 -15 00:00: 00 05-02 00:00 :00 No [id number] 10mg Take 1 tablet by mouth daily. [facility] amLODIPine 10 mg tablet 15 00:00: 00 05-02 00:00 :00 No [id number] 10mg Take 1 tablet by mouth daily. [facility] OXcarbazepi ne (TRILEPTAL) 300 mg tablet 14 00:00: 00 Yes [id number] 300mg Take 1 tablet by mouth 2 (two) times daily. [facility] gabapentin 300 mg capsule 0 14 00:00: 00 Yes [id number] 300mg Take 1 capsule by mouth 3 (three) times daily. [facility] OXcarbazepi ne (TRILEPTAL) 300 mg tablet 14 00:00: 00 Yes [id number] 300mg Take 1 tablet by mouth 2 (two) times daily. [facility] gabapentin 300 mg capsule 0 14 00:00: 00 Yes [id number] 300mg Take 1 capsule by mouth 3 (three) times daily. [facility] OXcarbazepi ne (TRILEPTAL) 300 mg tablet 0 14 00:00: 00 Yes [id number] 300mg Take 1 tablet by mouth 2 (two) times daily. [facility] gabapentin 300 mg capsule 2020-0 14 00:00: 00 Yes [id number] 300mg Take 1 capsule by mouth 3 (three) times daily. [facility] OXcarbazepi ne (TRILEPTAL) 300 mg tablet 0 14 00:00: 00 Yes [id number] 300mg Take 1 tablet by mouth 2 (two) times daily. [facility] gabapentin 300 mg capsule 2020-0 -14 00:00: 00 Yes [id number] 300mg Take 1 capsule by mouth 3 (three) times daily. [facility] OXcarbazepi ne (TRILEPTAL) 300 mg tablet 2020-0 -14 00:00: 00 Yes [id number] 300mg Take 1 tablet by mouth 2 (two) times daily. [facility] gabapentin 300 mg capsule 2020-0 -14 00:00: 00 Yes [id number] 300mg Take 1 capsule by mouth 3 (three) times daily. [facility] OXcarbazepi ne (TRILEPTAL) 300 mg tablet 2020-0 -14 00:00: 00 Yes [id number] 300mg Take 1 tablet by mouth 2 (two) times daily. [facility] gabapentin 300 mg capsule 2020-0 14 00:00: 00 Yes [id number] 300mg Take 1 capsule by mouth 3 (three) times daily. [facility] OXcarbazepi ne (TRILEPTAL) 300 mg tablet 2020-0 14 00:00: 00 Yes [id number] 300mg Take 1 tablet by mouth 2 (two) times daily. [facility] gabapentin 300 mg capsule 2020-0 14 00:00: 00 Yes [id number] 300mg Take 1 capsule by mouth 3 (three) times daily. [facility] OXcarbazepi ne (TRILEPTAL) 300 mg tablet 0 14 00:00: 00 Yes [id number] 300mg Take 1 tablet by mouth 2 (two) times daily. [facility] gabapentin 300 mg capsule 2020-0 14 00:00: 00 Yes [id number] 300mg Take 1 capsule by mouth 3 (three) times daily. [facility] OXcarbazepi ne (TRILEPTAL) 300 mg tablet 2020-0 -14 00:00: 00 Yes [id number] 300mg Take 1 tablet by mouth 2 (two) times daily. [facility] gabapentin 300 mg capsule 2020-0 -14 00:00: 00 Yes [id number] 300mg Take 1 capsule by mouth 3 (three) times daily. [facility] OXcarbazepi ne (TRILEPTAL) 300 mg tablet 2020-0 -14 00:00: 00 Yes [id number] 300mg Take 1 tablet by mouth 2 (two) times daily. [facility] gabapentin 300 mg capsule 2020-0 -14 00:00: 00 Yes [id number] 300mg Take 1 capsule by mouth 3 (three) times daily. [facility] OXcarbazepi ne (TRILEPTAL) 300 mg tablet 0 -14 00:00: 00 Yes [id number] 300mg Take 1 tablet by mouth 2 (two) times daily. [facility] gabapentin 300 mg capsule 2020-0 -14 00:00: 00 Yes [id number] 300mg Take 1 capsule by mouth 3 (three) times daily. [facility] OXcarbazepi ne (TRILEPTAL) 300 mg tablet 2020-0 -14 00:00: 00 Yes [id number] 300mg Take 1 tablet by mouth 2 (two) times daily. [facility] gabapentin 300 mg capsule 2020-0 -14 00:00: 00 Yes [id number] 300mg Take 1 capsule by mouth 3 (three) times daily. [facility] OXcarbazepi ne (TRILEPTAL) 300 mg tablet 2020-0 14 00:00: 00 Yes [id number] 300mg Take 1 tablet by mouth 2 (two) times daily. [facility] gabapentin 300 mg capsule 2020-0 -14 00:00: 00 Yes [id number] 300mg Take 1 capsule by mouth 3 (three) times daily. [facility] OXcarbazepi ne (TRILEPTAL) 300 mg tablet 2020-0 -14 00:00: 00 Yes [id number] 300mg Take 1 tablet by mouth 2 (two) times daily. [facility] gabapentin 300 mg capsule 2020-0 -14 00:00: 00 Yes [id number] 300mg Take 1 capsule by mouth 3 (three) times daily. [facility] OXcarbazepi ne (TRILEPTAL) 300 mg tablet 2020-0 -14 00:00: 00 Yes [id number] 300mg Take 1 tablet by mouth 2 (two) times daily. [facility] gabapentin 300 mg capsule 2020-0 -14 00:00: 00 Yes [id number] 300mg Take 1 capsule by mouth 3 (three) times daily. [facility] OXcarbazepi ne (TRILEPTAL) 300 mg tablet 0 -14 00:00: 00 Yes [id number] 300mg Take 1 tablet by mouth 2 (two) times daily. [facility] gabapentin 300 mg capsule 0 -14 00:00: 00 Yes [id number] 300mg Take 1 capsule by mouth 3 (three) times daily. [facility] OXcarbazepi ne (TRILEPTAL) 300 mg tablet 0 -14 00:00: 00 Yes [id number] 300mg Take 1 tablet by mouth 2 (two) times daily. [facility] gabapentin 300 mg capsule 2020-0 -14 00:00: 00 Yes [id number] 300mg Take 1 capsule by mouth 3 (three) times daily. [facility] OXcarbazepi ne (TRILEPTAL) 300 mg tablet 0 -14 00:00: 00 Yes [id number] 300mg Take 1 tablet by mouth 2 (two) times daily. [facility] gabapentin 300 mg capsule 2020-0 -14 00:00: 00 Yes [id number] 300mg Take 1 capsule by mouth 3 (three) times daily. [facility] OXcarbazepi ne (TRILEPTAL) 300 mg tablet 2020-0 -14 00:00: 00 Yes [id number] 300mg Take 1 tablet by mouth 2 (two) times daily. [facility] gabapentin 300 mg capsule 2020-0 -14 00:00: 00 Yes [id number] 300mg Take 1 capsule by mouth 3 (three) times daily. [facility] OXcarbazepi ne (TRILEPTAL) 300 mg tablet 2020-0 -14 00:00: 00 Yes [id number] 300mg Take 1 tablet by mouth 2 (two) times daily. [facility] gabapentin 300 mg capsule 2020-0 -14 00:00: 00 Yes [id number] 300mg Take 1 capsule by mouth 3 (three) times daily. [facility] OXcarbazepi ne (TRILEPTAL) 300 mg tablet 0 14 00:00: 00 Yes [id number] 300mg Take 1 tablet by mouth 2 (two) times daily. [facility] gabapentin 300 mg capsule 0 14 00:00: 00 Yes [id number] 300mg Take 1 capsule by mouth 3 (three) times daily. [facility] OXcarbazepi ne (TRILEPTAL) 300 mg tablet 01-26 00:00: 00 Yes [id number] 300mg Take 1 tablet by mouth 2 (two) times daily. [facility] gabapentin 300 mg capsule 01-26 00:00: 00 Yes [id number] 300mg Take 1 capsule by mouth 3 (three) times daily. [facility] OXcarbazepi ne (TRILEPTAL) 300 mg tablet 01-26 00:00: 00 Yes [id number] 300mg Take 1 tablet by mouth 2 (two) times daily. [facility] gabapentin 300 mg capsule 0 01-26 00:00: 00 Yes [id number] 300mg Take 1 capsule by mouth 3 (three) times daily. [facility] OXcarbazepi ne (TRILEPTAL) 300 mg tablet 01-26 00:00: 00 Yes [id number] 300mg Take 1 tablet by mouth 2 (two) times daily. [facility] gabapentin 300 mg capsule 0 14 00:00: 00 Yes [id number] 300mg Take 1 capsule by mouth 3 (three) times daily. [facility] OXcarbazepi ne (TRILEPTAL) 300 mg tablet 0 14 00:00: 00 Yes [id number] 300mg Take 1 tablet by mouth 2 (two) times daily. [facility] gabapentin 300 mg capsule 0 14 00:00: 00 Yes [id number] 300mg Take 1 capsule by mouth 3 (three) times daily. [facility] OXcarbazepi ne (TRILEPTAL) 300 mg tablet 0 14 00:00: 00 Yes [id number] 300mg Take 1 tablet by mouth 2 (two) times daily. [facility] gabapentin 300 mg capsule 2020-0 14 00:00: 00 Yes [id number] 300mg Take 1 capsule by mouth 3 (three) times daily. [facility] OXcarbazepi ne (TRILEPTAL) 300 mg tablet 0 14 00:00: 00 Yes [id number] 300mg Take 1 tablet by mouth 2 (two) times daily. [facility] gabapentin 300 mg capsule 0 14 00:00: 00 Yes [id number] 300mg Take 1 capsule by mouth 3 (three) times daily. [facility] OXcarbazepi ne (TRILEPTAL) 300 mg tablet 0 14 00:00: 00 Yes [id number] 300mg Take 1 tablet by mouth 2 (two) times daily. [facility] gabapentin 300 mg capsule 0 14 00:00: 00 Yes [id number] 300mg Take 1 capsule by mouth 3 (three) times daily. [facility] OXcarbazepi ne (TRILEPTAL) 300 mg tablet 0 14 00:00: 00 Yes [id number] 300mg Take 1 tablet by mouth 2 (two) times daily. [facility] gabapentin 300 mg capsule 0 14 00:00: 00 Yes [id number] 300mg Take 1 capsule by mouth 3 (three) times daily. [facility] OXcarbazepi ne (TRILEPTAL) 300 mg tablet 0 14 00:00: 00 Yes [id number] 300mg Take 1 tablet by mouth 2 (two) times daily. [facility] gabapentin 300 mg capsule 2020-0 14 00:00: 00 Yes [id number] 300mg Take 1 capsule by mouth 3 (three) times daily. [facility] OXcarbazepi ne (TRILEPTAL) 300 mg tablet 0 14 00:00: 00 Yes [id number] 300mg Take 1 tablet by mouth 2 (two) times daily. [facility] gabapentin 300 mg capsule 2020-0 5-14 00:00: 00 Yes [id number] 300mg Take 1 capsule by mouth 3 (three) times daily. [facility] OXcarbazepi ne (TRILEPTAL) 300 mg tablet 0 14 00:00: 00 Yes [id number] 300mg Take 1 tablet by mouth 2 (two) times daily. [facility] gabapentin 300 mg capsule 2020-0 14 00:00: 00 Yes [id number] 300mg Take 1 capsule by mouth 3 (three) times daily. [facility] OXcarbazepi ne (TRILEPTAL) 300 mg tablet 0 14 00:00: 00 Yes [id number] 300mg Take 1 tablet by mouth 2 (two) times daily. [facility] gabapentin 300 mg capsule 0 14 00:00: 00 Yes [id number] 300mg Take 1 capsule by mouth 3 (three) times daily. [facility] OXcarbazepi ne (TRILEPTAL) 300 mg tablet 0 01-26 00:00: 00 Yes [id number] 300mg Take 1 tablet by mouth 2 (two) times daily. [facility] gabapentin 300 mg capsule 2020-0 14 00:00: 00 Yes [id number] 300mg Take 1 capsule by mouth 3 (three) times daily. [facility] OXcarbazepi ne (TRILEPTAL) 300 mg tablet 0 14 00:00: 00 Yes [id number] 300mg Take 1 tablet by mouth 2 (two) times daily. [facility] gabapentin 300 mg capsule 2020-0 14 00:00: 00 Yes [id number] 300mg Take 1 capsule by mouth 3 (three) times daily. [facility] OXcarbazepi ne (TRILEPTAL) 300 mg tablet 2020-0 14 00:00: 00 Yes [id number] 300mg Take 1 tablet by mouth 2 (two) times daily. [facility] gabapentin 300 mg capsule 2020-0 -14 00:00: 00 Yes [id number] 300mg Take 1 capsule by mouth 3 (three) times daily. [facility] OXcarbazepi ne (TRILEPTAL) 300 mg tablet 2020-0 -14 00:00: 00 Yes [id number] 300mg Take 1 tablet by mouth 2 (two) times daily. [facility] gabapentin 300 mg capsule 2020-0 5-14 00:00: 00 Yes [id number] 300mg Take 1 capsule by mouth 3 (three) times daily. [facility] OXcarbazepi ne (TRILEPTAL) 300 mg tablet 2020-0 -14 00:00: 00 Yes [id number] 300mg Take 1 tablet by mouth 2 (two) times daily. [facility] gabapentin 300 mg capsule 2020-0 -14 00:00: 00 Yes [id number] 300mg Take 1 capsule by mouth 3 (three) times daily. [facility] OXcarbazepi ne (TRILEPTAL) 300 mg tablet 2020-0 -14 00:00: 00 Yes [id number] 300mg Take 1 tablet by mouth 2 (two) times daily. [facility] gabapentin 300 mg capsule 2020-0 -14 00:00: 00 Yes [id number] 300mg Take 1 capsule by mouth 3 (three) times daily. [facility] OXcarbazepi ne (TRILEPTAL) 300 mg tablet 2020-0 -14 00:00: 00 Yes [id number] 300mg Take 1 tablet by mouth 2 (two) times daily. [facility] gabapentin 300 mg capsule 2020-0 -14 00:00: 00 Yes [id number] 300mg Take 1 capsule by mouth 3 (three) times daily. [facility] OXcarbazepi ne (TRILEPTAL) 300 mg tablet 2020-0 -14 00:00: 00 Yes [id number] 300mg Take 1 tablet by mouth 2 (two) times daily. [facility] gabapentin 300 mg capsule 2020-0 -14 00:00: 00 Yes [id number] 300mg Take 1 capsule by mouth 3 (three) times daily. [facility] OXcarbazepi ne (TRILEPTAL) 300 mg tablet 2020-0 5-14 00:00: 00 Yes [id number] 300mg Take 1 tablet by mouth 2 (two) times daily. [facility] gabapentin 300 mg capsule 2020-0 -14 00:00: 00 Yes [id number] 300mg Take 1 capsule by mouth 3 (three) times daily. [facility] OXcarbazepi ne (TRILEPTAL) 300 mg tablet 2020-0 5-14 00:00: 00 Yes [id number] 300mg Take 1 tablet by mouth 2 (two) times daily. [facility] gabapentin 300 mg capsule 2020-0 -14 00:00: 00 Yes [id number] 300mg Take 1 capsule by mouth 3 (three) times daily. [facility] OXcarbazepi ne (TRILEPTAL) 300 mg tablet 2020-0 -14 00:00: 00 Yes [id number] 300mg Take 1 tablet by mouth 2 (two) times daily. [facility] gabapentin 300 mg capsule 2020-0 -14 00:00: 00 Yes [id number] 300mg Take 1 capsule by mouth 3 (three) times daily. [facility] OXcarbazepi ne (TRILEPTAL) 300 mg tablet 2020-0 -14 00:00: 00 Yes [id number] 300mg Take 1 tablet by mouth 2 (two) times daily. [facility] gabapentin 300 mg capsule 2020-0 -14 00:00: 00 Yes [id number] 300mg Take 1 capsule by mouth 3 (three) times daily. [facility] OXcarbazepi ne (TRILEPTAL) 300 mg tablet 2020-0 -14 00:00: 00 Yes [id number] 300mg Take 1 tablet by mouth 2 (two) times daily. [facility] gabapentin 300 mg capsule 2020-0 -14 00:00: 00 Yes [id number] 300mg Take 1 capsule by mouth 3 (three) times daily. [facility] OXcarbazepi ne (TRILEPTAL) 300 mg tablet 2020-0 -14 00:00: 00 Yes [id number] 300mg Take 1 tablet by mouth 2 (two) times daily. [facility] gabapentin 300 mg capsule 2020-0 -14 00:00: 00 Yes [id number] 300mg Take 1 capsule by mouth 3 (three) times daily. [facility] OXcarbazepi ne (TRILEPTAL) 300 mg tablet 2020-0 -14 00:00: 00 Yes [id number] 300mg Take 1 tablet by mouth 2 (two) times daily. [facility] gabapentin 300 mg capsule 2020-0 -14 00:00: 00 Yes [id number] 300mg Take 1 capsule by mouth 3 (three) times daily. [facility] OXcarbazepi ne (TRILEPTAL) 300 mg tablet 2020-0 -14 00:00: 00 Yes [id number] 300mg Take 1 tablet by mouth 2 (two) times daily. [facility] gabapentin 300 mg capsule 2020-0 -14 00:00: 00 Yes [id number] 300mg Take 1 capsule by mouth 3 (three) times daily. [facility] OXcarbazepi ne (TRILEPTAL) 300 mg tablet 0 -14 00:00: 00 Yes [id number] 300mg Take 1 tablet by mouth 2 (two) times daily. [facility] gabapentin 300 mg capsule 2020-0 -14 00:00: 00 Yes [id number] 300mg Take 1 capsule by mouth 3 (three) times daily. [facility] OXcarbazepi ne (TRILEPTAL) 300 mg tablet 0 14 00:00: 00 Yes [id number] 300mg Take 1 tablet by mouth 2 (two) times daily. [facility] gabapentin 300 mg capsule 2020-0 -14 00:00: 00 Yes [id number] 300mg Take 1 capsule by mouth 3 (three) times daily. [facility] OXcarbazepi ne (TRILEPTAL) 300 mg tablet 2020-0 -14 00:00: 00 Yes [id number] 300mg Take 1 tablet by mouth 2 (two) times daily. [facility] gabapentin 300 mg capsule 2020-0 -14 00:00: 00 Yes [id number] 300mg Take 1 capsule by mouth 3 (three) times daily. [facility] OXcarbazepi ne (TRILEPTAL) 300 mg tablet 0 5-14 00:00: 00 Yes [id number] 300mg Take 1 tablet by mouth 2 (two) times daily. [facility] gabapentin 300 mg capsule 2020-0 -14 00:00: 00 Yes [id number] 300mg Take 1 capsule by mouth 3 (three) times daily. [facility] OXcarbazepi ne (TRILEPTAL) 300 mg tablet 0 14 00:00: 00 Yes [id number] 300mg Take 1 tablet by mouth 2 (two) times daily. [facility] gabapentin 300 mg capsule 0 14 00:00: 00 Yes [id number] 300mg Take 1 capsule by mouth 3 (three) times daily. [facility] OXcarbazepi ne (TRILEPTAL) 300 mg tablet 0 14 00:00: 00 Yes [id number] 300mg Take 1 tablet by mouth 2 (two) times daily. [facility] gabapentin 300 mg capsule 0 14 00:00: 00 Yes [id number] 300mg Take 1 capsule by mouth 3 (three) times daily. [facility] OXcarbazepi ne (TRILEPTAL) 300 mg tablet 0 14 00:00: 00 Yes [id number] 300mg Take 1 tablet by mouth 2 (two) times daily. [facility] gabapentin 300 mg capsule 0 14 00:00: 00 Yes [id number] 300mg Take 1 capsule by mouth 3 (three) times daily. [facility] OXcarbazepi ne (TRILEPTAL) 300 mg tablet 2020-0 14 00:00: 00 Yes [id number] 300mg Take 1 tablet by mouth 2 (two) times daily. [facility] gabapentin 300 mg capsule 2020-0 -14 00:00: 00 Yes [id number] 300mg Take 1 capsule by mouth 3 (three) times daily. [facility] OXcarbazepi ne (TRILEPTAL) 300 mg tablet 2020-0 -14 00:00: 00 Yes [id number] 300mg Take 1 tablet by mouth 2 (two) times daily. [facility] gabapentin 300 mg capsule 2020-0 -14 00:00: 00 Yes [id number] 300mg Take 1 capsule by mouth 3 (three) times daily. [facility] OXcarbazepi ne (TRILEPTAL) 300 mg tablet 0 -14 00:00: 00 Yes [id number] 300mg Take 1 tablet by mouth 2 (two) times daily. [facility] gabapentin 300 mg capsule 2020-0 -14 00:00: 00 Yes [id number] 300mg Take 1 capsule by mouth 3 (three) times daily. [facility] OXcarbazepi ne (TRILEPTAL) 300 mg tablet 0 -14 00:00: 00 Yes [id number] 300mg Take 1 tablet by mouth 2 (two) times daily. [facility] gabapentin 300 mg capsule 2020-0 -14 00:00: 00 Yes [id number] 300mg Take 1 capsule by mouth 3 (three) times daily. [facility] OXcarbazepi ne (TRILEPTAL) 300 mg tablet 0 -14 00:00: 00 Yes [id number] 300mg Take 1 tablet by mouth 2 (two) times daily. [facility] gabapentin 300 mg capsule 2020-0 14 00:00: 00 Yes [id number] 300mg Take 1 capsule by mouth 3 (three) times daily. [facility] OXcarbazepi ne (TRILEPTAL) 300 mg tablet 0 -14 00:00: 00 Yes [id number] 300mg Take 1 tablet by mouth 2 (two) times daily. [facility] gabapentin 300 mg capsule 2020-0 -14 00:00: 00 Yes [id number] 300mg Take 1 capsule by mouth 3 (three) times daily. [facility] OXcarbazepi ne (TRILEPTAL) 300 mg tablet 0 -14 00:00: 00 Yes [id number] 300mg Take 1 tablet by mouth 2 (two) times daily. [facility] gabapentin 300 mg capsule 2020-0 -14 00:00: 00 Yes [id number] 300mg Take 1 capsule by mouth 3 (three) times daily. [facility] OXcarbazepi ne (TRILEPTAL) 300 mg tablet 0 14 00:00: 00 Yes [id number] 300mg Take 1 tablet by mouth 2 (two) times daily. [facility] gabapentin 300 mg capsule 0 01-26 00:00: 00 Yes [id number] 300mg Take 1 capsule by mouth 3 (three) times daily. [facility] OXcarbazepi ne (TRILEPTAL) 300 mg tablet 01-26 00:00: 00 Yes [id number] 300mg Take 1 tablet by mouth 2 (two) times daily. [facility] gabapentin 300 mg capsule 01-26 00:00: 00 Yes [id number] 300mg Take 1 capsule by mouth 3 (three) times daily. [facility] OXcarbazepi ne (TRILEPTAL) 300 mg tablet 01-26 00:00: 00 Yes [id number] 300mg Take 1 tablet by mouth 2 (two) times daily. [facility] gabapentin 300 mg capsule 01-26 00:00: 00 Yes [id number] 300mg Take 1 capsule by mouth 3 (three) times daily. [facility] OXcarbazepi ne (TRILEPTAL) 300 mg tablet 01-26 00:00: 00 Yes [id number] 300mg Take 1 tablet by mouth 2 (two) times daily. [facility] gabapentin 300 mg capsule 01-26 00:00: 00 Yes [id number] 300mg Take 1 capsule by mouth 3 (three) times daily. [facility] OXcarbazepi ne (TRILEPTAL) 300 mg tablet 01-26 00:00: 00 Yes [id number] 300mg Take 1 tablet by mouth 2 (two) times daily. [facility] gabapentin 300 mg capsule 0 14 00:00: 00 Yes [id number] 300mg Take 1 capsule by mouth 3 (three) times daily. [facility] OXcarbazepi ne (TRILEPTAL) 300 mg tablet 0 01-26 00:00: 00 Yes [id number] 300mg Take 1 tablet by mouth 2 (two) times daily. [facility] gabapentin 300 mg capsule 2020-0 14 00:00: 00 Yes [id number] 300mg Take 1 capsule by mouth 3 (three) times daily. [facility] OXcarbazepi ne (TRILEPTAL) 300 mg tablet 0 14 00:00: 00 Yes [id number] 300mg Take 1 tablet by mouth 2 (two) times daily. [facility] gabapentin 300 mg capsule 0 14 00:00: 00 Yes [id number] 300mg Take 1 capsule by mouth 3 (three) times daily. [facility] OXcarbazepi ne (TRILEPTAL) 300 mg tablet 0 01-26 00:00: 00 Yes [id number] 300mg Take 1 tablet by mouth 2 (two) times daily. [facility] gabapentin 300 mg capsule 0 14 00:00: 00 Yes [id number] 300mg Take 1 capsule by mouth 3 (three) times daily. [facility] OXcarbazepi ne (TRILEPTAL) 300 mg tablet 0 01-26 00:00: 00 Yes [id number] 300mg Take 1 tablet by mouth 2 (two) times daily. [facility] gabapentin 300 mg capsule 0 14 00:00: 00 Yes [id number] 300mg Take 1 capsule by mouth 3 (three) times daily. [facility] OXcarbazepi ne (TRILEPTAL) 300 mg tablet 0 14 00:00: 00 Yes [id number] 300mg Take 1 tablet by mouth 2 (two) times daily. [facility] gabapentin 300 mg capsule 2020-0 14 00:00: 00 Yes [id number] 300mg Take 1 capsule by mouth 3 (three) times daily. [facility] OXcarbazepi ne (TRILEPTAL) 300 mg tablet 0 14 00:00: 00 Yes [id number] 300mg Take 1 tablet by mouth 2 (two) times daily. [facility] gabapentin 300 mg capsule 2020-0 14 00:00: 00 Yes [id number] 300mg Take 1 capsule by mouth 3 (three) times daily. [facility] 300 mg tablet 0 14 00:00: 00 Yes [id number] 300mg Take 1 tablet by mouth 2 (two) times daily. [facility] gabapentin 300 mg capsule 2020-0 14 00:00: 00 Yes [id number] 300mg Take 1 capsule by mouth 3 (three) times daily. [facility] OXcarbazepi ne (TRILEPTAL) 300 mg tablet 2020-0 14 00:00: 00 Yes [id number] 300mg Take 1 tablet by mouth 2 (two) times daily. [facility] gabapentin 300 mg capsule 0 14 00:00: 00 Yes [id number] 300mg Take 1 capsule by mouth 3 (three) times daily. [facility] OXcarbazepi ne (TRILEPTAL) 300 mg tablet 0 01-26 00:00: 00 Yes [id number] 300mg Take 1 tablet by mouth 2 (two) times daily. [facility] gabapentin 300 mg capsule 2020-0 14 00:00: 00 Yes [id number] 300mg Take 1 capsule by mouth 3 (three) times daily. [facility] OXcarbazepi ne (TRILEPTAL) 300 mg tablet 0 14 00:00: 00 Yes [id number] 300mg Take 1 tablet by mouth 2 (two) times daily. [facility] gabapentin 300 mg capsule 2020-0 14 00:00: 00 Yes [id number] 300mg Take 1 capsule by mouth 3 (three) times daily. [facility] OXcarbazepi ne (TRILEPTAL) 300 mg tablet 2020-0 14 00:00: 00 Yes [id number] 300mg Take 1 tablet by mouth 2 (two) times daily. [facility] gabapentin 300 mg capsule 2020-0 -14 00:00: 00 Yes [id number] 300mg Take 1 capsule by mouth 3 (three) times daily. [facility] OXcarbazepi ne (TRILEPTAL) 300 mg tablet 2020-0 -14 00:00: 00 Yes [id number] 300mg Take 1 tablet by mouth 2 (two) times daily. [facility] gabapentin 300 mg capsule 2020-0 5-14 00:00: 00 Yes [id number] 300mg Take 1 capsule by mouth 3 (three) times daily. [facility] OXcarbazepi ne (TRILEPTAL) 300 mg tablet 2020-0 -14 00:00: 00 Yes [id number] 300mg Take 1 tablet by mouth 2 (two) times daily. [facility] gabapentin 300 mg capsule 2020-0 -14 00:00: 00 Yes [id number] 300mg Take 1 capsule by mouth 3 (three) times daily. [facility] OXcarbazepi ne (TRILEPTAL) 300 mg tablet 2020-0 -14 00:00: 00 Yes [id number] 300mg Take 1 tablet by mouth 2 (two) times daily. [facility] gabapentin 300 mg capsule 2020-0 -14 00:00: 00 Yes [id number] 300mg Take 1 capsule by mouth 3 (three) times daily. [facility] OXcarbazepi ne (TRILEPTAL) 300 mg tablet 2020-0 -14 00:00: 00 Yes [id number] 300mg Take 1 tablet by mouth 2 (two) times daily. [facility] gabapentin 300 mg capsule 2020-0 -14 00:00: 00 Yes [id number] 300mg Take 1 capsule by mouth 3 (three) times daily. [facility] OXcarbazepi ne (TRILEPTAL) 300 mg tablet 2020-0 -14 00:00: 00 Yes [id number] 300mg Take 1 tablet by mouth 2 (two) times daily. [facility] gabapentin 300 mg capsule 2020-0 -14 00:00: 00 Yes [id number] 300mg Take 1 capsule by mouth 3 (three) times daily. [facility] OXcarbazepi ne (TRILEPTAL) 300 mg tablet 2020-0 5-14 00:00: 00 Yes [id number] 300mg Take 1 tablet by mouth 2 (two) times daily. [facility] gabapentin 300 mg capsule 2020-0 -14 00:00: 00 Yes [id number] 300mg Take 1 capsule by mouth 3 (three) times daily. [facility] OXcarbazepi ne (TRILEPTAL) 300 mg tablet 2020-0 5-14 00:00: 00 Yes [id number] 300mg Take 1 tablet by mouth 2 (two) times daily. [facility] gabapentin 300 mg capsule 2020-0 -14 00:00: 00 Yes [id number] 300mg Take 1 capsule by mouth 3 (three) times daily. [facility] OXcarbazepi ne (TRILEPTAL) 300 mg tablet 2020-0 -14 00:00: 00 Yes [id number] 300mg Take 1 tablet by mouth 2 (two) times daily. [facility] gabapentin 300 mg capsule 2020-0 -14 00:00: 00 Yes [id number] 300mg Take 1 capsule by mouth 3 (three) times daily. [facility] OXcarbazepi ne (TRILEPTAL) 300 mg tablet 2020-0 -14 00:00: 00 Yes [id number] 300mg Take 1 tablet by mouth 2 (two) times daily. [facility] gabapentin 300 mg capsule 2020-0 -14 00:00: 00 Yes [id number] 300mg Take 1 capsule by mouth 3 (three) times daily. [facility] OXcarbazepi ne (TRILEPTAL) 300 mg tablet 2020-0 -14 00:00: 00 Yes [id number] 300mg Take 1 tablet by mouth 2 (two) times daily. [facility] gabapentin 300 mg capsule 2020-0 -14 00:00: 00 Yes [id number] 300mg Take 1 capsule by mouth 3 (three) times daily. [facility] OXcarbazepi ne (TRILEPTAL) 300 mg tablet 2020-0 -14 00:00: 00 Yes [id number] 300mg Take 1 tablet by mouth 2 (two) times daily. [facility] gabapentin 300 mg capsule 2020-0 -14 00:00: 00 Yes [id number] 300mg Take 1 capsule by mouth 3 (three) times daily. [facility] OXcarbazepi ne (TRILEPTAL) 300 mg tablet 2020-0 5-14 00:00: 00 Yes [id number] 300mg Take 1 tablet by mouth 2 (two) times daily. [facility] gabapentin 300 mg capsule 2020-0 5-14 00:00: 00 Yes [id number] 300mg Take 1 capsule by mouth 3 (three) times daily. [facility] OXcarbazepi ne (TRILEPTAL) 300 mg tablet 2020-0 5-14 00:00: 00 Yes [id number] 300mg Take 1 tablet by mouth 2 (two) times daily. [facility] gabapentin 300 mg capsule 2020-0 5-14 00:00: 00 Yes [id number] 300mg Take 1 capsule by mouth 3 (three) times daily. [facility] OXcarbazepi ne (TRILEPTAL) 300 mg tablet 2020-0 5-14 00:00: 00 Yes [id number] 300mg Take 1 tablet by mouth 2 (two) times daily. [facility] gabapentin 300 mg capsule 2020-0 -14 00:00: 00 Yes [id number] 300mg Take 1 capsule by mouth 3 (three) times daily. [facility] OXcarbazepi ne (TRILEPTAL) 300 mg tablet 2020-0 5-14 00:00: 00 Yes [id number] 300mg Take 1 tablet by mouth 2 (two) times daily. [facility] gabapentin 300 mg capsule 2020-0 5-14 00:00: 00 Yes [id number] 300mg Take 1 capsule by mouth 3 (three) times daily. [facility] topiramate 25 mg tablet 2020-0 5-14 00:00: 00 05-02 00:00 :00 No [id number] 25mg Take 1 tablet by mouth 2 (two) times daily. [facility] atorvastati n 20 mg tablet 2020-0 5-14 00:00: 00 05-02 00:00 :00 No [id number] 20mg Take 1 tablet by mouth at bedtime. [facility] topiramate 25 mg tablet 14 00:00: 00 05-02 00:00 :00 No [id number] 25mg Take 1 tablet by mouth 2 (two) times daily. [facility] atorvastati n 20 mg tablet 01-26 00:00: 00 05-02 00:00 :00 No [id number] 20mg Take 1 tablet by mouth at bedtime. [facility] topiramate 25 mg tablet 01-26 00:00: 00 05-02 00:00 :00 No [id number] 25mg Take 1 tablet by mouth 2 (two) times daily. [facility] atorvastati n 20 mg tablet 01-26 00:00: 00 05-02 00:00 :00 No [id number] 20mg Take 1 tablet by mouth at bedtime. [facility] buPROPion SR 150 mg SR tablet 04-16 00:00: 00 Yes 150mg Take 1 tablet by mouth 2 (two) times daily. [facility] buPROPion SR 150 mg SR tablet 04-16 00:00: 00 Yes 150mg Take 1 tablet by mouth 2 (two) times daily. [facility] buPROPion SR 150 mg SR tablet 04-16 00:00: 00 Yes 150mg Take 1 tablet by mouth 2 (two) times daily. [facility] buPROPion SR 150 mg SR tablet 04-16 00:00: 00 Yes 150mg Take 1 tablet by mouth 2 (two) times daily. [facility] buPROPion SR 150 mg SR tablet 04-16 00:00: 00 Yes 150mg Take 1 tablet by mouth 2 (two) times daily. [facility] buPROPion SR 150 mg SR tablet 04-16 00:00: 00 Yes 150mg Take 1 tablet by mouth 2 (two) times daily. [facility] buPROPion SR 150 mg SR tablet 04-16 00:00: 00 Yes 150mg Take 1 tablet by mouth 2 (two) times daily. [facility] buPROPion SR 150 mg SR tablet 04-16 00:00: 00 Yes 150mg Take 1 tablet by mouth 2 (two) times daily. [facility] mg SR tablet 04-16 00:00: 00 Yes 150mg Take 1 tablet by mouth 2 (two) times daily. [facility] 150 mg SR tablet 04-16 00:00: 00 Yes 150mg Take 1 tablet by mouth 2 (two) times daily. [facility] buPROPion SR 150 mg SR tablet 04-16 00:00: 00 Yes 150mg Take 1 tablet by mouth 2 (two) times daily. [facility] buPROPion SR 150 mg SR tablet 04-16 00:00: 00 Yes 150mg Take 1 tablet by mouth 2 (two) times daily. [facility] buPROPion SR 150 mg SR tablet 04-16 00:00: 00 Yes 150mg Take 1 tablet by mouth 2 (two) times daily. [facility] buPROPion SR 150 mg SR tablet 04-16 00:00: 00 Yes 150mg Take 1 tablet by mouth 2 (two) times daily. [facility] buPROPion SR 150 mg SR tablet 04-16 00:00: 00 Yes 150mg Take 1 tablet by mouth 2 (two) times daily. [facility] buPROPion SR 150 mg SR tablet 04-16 00:00: 00 Yes 150mg Take 1 tablet by mouth 2 (two) times daily. [facility] buPROPion SR 150 mg SR tablet 04-16 00:00: 00 Yes 150mg Take 1 tablet by mouth 2 (two) times daily. [facility] buPROPion SR 150 mg SR tablet 04-16 00:00: 00 Yes 150mg Take 1 tablet by mouth 2 (two) times daily. [facility] buPROPion SR 150 mg SR tablet 04-16 00:00: 00 Yes 150mg Take 1 tablet by mouth 2 (two) times daily. [facility] buPROPion SR 150 mg SR tablet 04-16 00:00: 00 Yes 150mg Take 1 tablet by mouth 2 (two) times daily. [facility] bu[facility] 150 mg SR tablet 04-16 00:00: 00 Yes 150mg Take 1 tablet by mouth 2 (two) times daily. [facility] buPROPion SR 150 mg SR tablet 04-16 00:00: 00 Yes 150mg Take 1 tablet by mouth 2 (two) times daily. [facility] buPROPion SR 150 mg SR tablet 04-16 00:00: 00 Yes 150mg Take 1 tablet by mouth 2 (two) times daily. [facility] buPROPion SR 150 mg SR tablet 04-16 00:00: 00 Yes 150mg Take 1 tablet by mouth 2 (two) times daily. [facility] buPROPion SR 150 mg SR tablet 04-16 00:00: 00 Yes 150mg Take 1 tablet by mouth 2 (two) times daily. [facility] buPROPion SR 150 mg SR tablet 04-16 00:00: 00 Yes 150mg Take 1 tablet by mouth 2 (two) times daily. [facility] buPROPion SR 150 mg SR tablet 04-16 00:00: 00 Yes 150mg Take 1 tablet by mouth 2 (two) times daily. [facility] buPROPion SR 150 mg SR tablet 04-16 00:00: 00 Yes 150mg Take 1 tablet by mouth 2 (two) times daily. [facility] buPROPion SR 150 mg SR tablet 04-16 00:00: 00 Yes 150mg Take 1 tablet by mouth 2 (two) times daily. [facility] buPROPion SR 150 mg SR tablet 04-16 00:00: 00 Yes 150mg Take 1 tablet by mouth 2 (two) times daily. [facility] buPROPion SR 150 mg SR tablet 04-16 00:00: 00 Yes 150mg Take 1 tablet by mouth 2 (two) times daily. [facility] buPROPion SR 150 mg SR tablet 04-16 00:00: 00 Yes 150mg Take 1 tablet by mouth 2 (two) times daily. [facility] buPROPion SR 150 mg SR tablet 04-16 00:00: 00 Yes 150mg Take 1 tablet by mouth 2 (two) times daily. [facility] buPROPion SR 150 mg SR tablet 04-16 00:00: 00 Yes 150mg Take 1 tablet by mouth 2 (two) times daily. [facility] buPROPion SR 150 mg SR tablet 04-16 00:00: 00 Yes 150mg Take 1 tablet by mouth 2 (two) times daily. [facility] buPROPion SR 150 mg SR tablet 04-16 00:00: 00 Yes 150mg Take 1 tablet by mouth 2 (two) times daily. [facility] [facility] SR [facility] 04-16 00:00: 00 Yes 150mg Take 1 tablet by mouth 2 (two) times daily. [facility] buPROPion SR 150 mg SR tablet 04-16 00:00: 00 Yes 150mg Take 1 tablet by mouth 2 (two) times daily. [facility] buPROPion SR 150 mg SR tablet 04-16 00:00: 00 Yes 150mg Take 1 tablet by mouth 2 (two) times daily. [facility] buPROPion SR 150 mg SR tablet 04-16 00:00: 00 Yes 150mg Take 1 tablet by mouth 2 (two) times daily. [facility] buPROPion SR 150 mg SR tablet 04-16 00:00: 00 Yes 150mg Take 1 tablet by mouth 2 (two) times daily. [facility] buPROPion SR 150 mg SR tablet 04-16 00:00: 00 Yes 150mg Take 1 tablet by mouth 2 (two) times daily. [facility] buPROPion SR 150 mg SR tablet 04-16 00:00: 00 Yes 150mg Take 1 tablet by mouth 2 (two) times daily. [facility] buPROPion SR 150 mg SR tablet 04-16 00:00: 00 Yes 150mg Take 1 tablet by mouth 2 (two) times daily. [facility] buPROPion SR 150 mg SR tablet 04-16 00:00: 00 Yes 150mg Take 1 tablet by mouth 2 (two) times daily. [facility] buPROPion SR 150 mg SR tablet 04-16 00:00: 00 Yes 150mg Take 1 tablet by mouth 2 (two) times daily. [facility] buPROPion SR 150 mg SR tablet 04-16 00:00: 00 Yes 150mg Take 1 tablet by mouth 2 (two) times daily. [facility] buPROPion SR 150 mg SR tablet 04-16 00:00: 00 Yes 150mg Take 1 tablet by mouth 2 (two) times daily. [facility] buPROPion SR 150 mg SR tablet 04-16 00:00: 00 Yes 150mg Take 1 tablet by mouth 2 (two) times daily. [facility] buPROPion SR 150 mg SR tablet 04-16 00:00: 00 Yes 150mg Take 1 tablet by mouth 2 (two) times daily. [facility] buPROPion SR 150 mg SR tablet 04-16 00:00: 00 Yes 150mg Take 1 tablet by mouth 2 (two) times daily. [facility] buPROPion SR 150 mg SR tablet 04-16 00:00: 00 Yes 150mg Take 1 tablet by mouth 2 (two) times daily. [facility] buPROPion SR 150 mg SR tablet 04-16 00:00: 00 Yes 150mg Take 1 tablet by mouth 2 (two) times daily. [facility] buPROPion SR 150 mg SR tablet 04-16 00:00: 00 Yes 150mg Take 1 tablet by mouth 2 (two) times daily. [facility] buPROPion SR 150 mg SR tablet 04-16 00:00: 00 Yes 150mg Take 1 tablet by mouth 2 (two) times daily. [facility] buPROPion SR 150 mg SR tablet 04-16 00:00: 00 Yes 150mg Take 1 tablet by mouth 2 (two) times daily. [facility] buPROPion SR 150 mg SR tablet 04-16 00:00: 00 Yes 150mg Take 1 tablet by mouth 2 (two) times daily. [facility] mg SR tablet 04-16 00:00: 00 Yes 150mg Take 1 tablet by mouth 2 (two) times daily. [facility] buPROPion SR 150 mg SR tablet 04-16 00:00: 00 Yes 150mg Take 1 tablet by mouth 2 (two) times daily. [facility] buPROPion SR 150 mg SR tablet 04-16 00:00: 00 Yes 150mg Take 1 tablet by mouth 2 (two) times daily. [facility] buPROPion SR 150 mg SR tablet 04-16 00:00: 00 Yes 150mg Take 1 tablet by mouth 2 (two) times daily. [facility] buPROPion SR 150 mg SR tablet 04-16 00:00: 00 Yes 150mg Take 1 tablet by mouth 2 (two) times daily. [facility] buPROPion SR 150 mg SR tablet 04-16 00:00: 00 Yes 150mg Take 1 tablet by mouth 2 (two) times daily. [facility] buPROPion SR 150 mg SR tablet 04-16 00:00: 00 Yes 150mg Take 1 tablet by mouth 2 (two) times daily. [facility] buPROPion SR 150 mg SR tablet 04-16 00:00: 00 Yes 150mg Take 1 tablet by mouth 2 (two) times daily. [facility] buPROPion SR 150 mg SR tablet 04-16 00:00: 00 Yes 150mg Take 1 tablet by mouth 2 (two) times daily. [facility] buPROPion SR 150 mg SR tablet 04-16 00:00: 00 Yes 150mg Take 1 tablet by mouth 2 (two) times daily. [facility] buPROPion SR 150 mg SR tablet 04-16 00:00: 00 Yes 150mg Take 1 tablet by mouth 2 (two) times daily. [facility] buPROPion SR 150 mg SR tablet 04-16 00:00: 00 Yes 150mg Take 1 tablet by mouth 2 (two) times daily. [facility] buPROPion SR 150 mg SR tablet 04-16 00:00: 00 Yes 150mg Take 1 tablet by mouth 2 (two) times daily. [facility] mg SR tablet 04-16 00:00: 00 Yes 150mg Take 1 tablet by mouth 2 (two) times daily. [facility] buPROPion SR 150 mg SR tablet 04-16 00:00: 00 Yes 150mg Take 1 tablet by mouth 2 (two) times daily. [facility] buPROPion SR 150 mg SR tablet 04-16 00:00: 00 Yes 150mg Take 1 tablet by mouth 2 (two) times daily. [facility] buPROPion SR 150 mg SR tablet 04-16 00:00: 00 Yes 150mg Take 1 tablet by mouth 2 (two) times daily. [facility] buPROPion SR 150 mg SR tablet 04-16 00:00: 00 Yes 150mg Take 1 tablet by mouth 2 (two) times daily. [facility] buPROPion SR 150 mg SR tablet 04-16 00:00: 00 Yes 150mg Take 1 tablet by mouth 2 (two) times daily. [facility] buPROPion SR 150 mg SR tablet 04-16 00:00: 00 Yes 150mg Take 1 tablet by mouth 2 (two) times daily. [facility] buPROPion SR 150 mg SR tablet 04-16 00:00: 00 Yes 150mg Take 1 tablet by mouth 2 (two) times daily. [facility] buPROPion SR 150 mg SR tablet 04-16 00:00: 00 Yes 150mg Take 1 tablet by mouth 2 (two) times daily. [facility] buPROPion SR 150 mg SR tablet 04-16 00:00: 00 Yes 150mg Take 1 tablet by mouth 2 (two) times daily. [facility] buPROPion SR 150 mg SR tablet 04-16 00:00: 00 Yes 150mg Take 1 tablet by mouth 2 (two) times daily. [facility] buPROPion SR 150 mg SR tablet 04-16 00:00: 00 Yes 150mg Take 1 tablet by mouth 2 (two) times daily. [facility] buPROPion SR 150 mg SR tablet 04-16 00:00: 00 Yes 150mg Take 1 tablet by mouth 2 (two) times daily. [facility] buPROPion SR 150 mg SR tablet 04-16 00:00: 00 Yes 150mg Take 1 tablet by mouth 2 (two) times daily. [facility] buPROPion SR 150 mg SR tablet 04-16 00:00: 00 Yes 150mg Take 1 tablet by mouth 2 (two) times daily. [facility] buPROPion SR 150 mg SR tablet 04-16 00:00: 00 Yes 150mg Take 1 tablet by mouth 2 (two) times daily. [facility] buPROPion SR 150 mg SR tablet 04-16 00:00: 00 Yes 150mg Take 1 tablet by mouth 2 (two) times daily. [facility] buPROPion SR 150 mg SR tablet 04-16 00:00: 00 Yes 150mg Take 1 tablet by mouth 2 (two) times daily. [facility] buPROPion SR 150 mg SR tablet 04-16 00:00: 00 Yes 150mg Take 1 tablet by mouth 2 (two) times daily. [facility] buPROPion SR 150 mg SR tablet 04-16 00:00: 00 Yes 150mg Take 1 tablet by mouth 2 (two) times daily. [facility] buPROPion SR 150 mg SR tablet 04-16 00:00: 00 Yes 150mg Take 1 tablet by mouth 2 (two) times daily. [facility] buPROPion SR 150 mg SR tablet 04-16 00:00: 00 Yes 150mg Take 1 tablet by mouth 2 (two) times daily. [facility] buPROPion SR 150 mg SR tablet 04-16 00:00: 00 Yes 150mg Take 1 tablet by mouth 2 (two) times daily. [facility] buPROPion SR 150 mg SR tablet 04-16 00:00: 00 Yes 150mg Take 1 tablet by mouth 2 (two) times daily. [facility] Immunizations Ordered Immunization Name Filled Immunization Name Date Status Comments Source Influenza Virus Vaccine 2021-10-19 00:00:00 Completed [facility] Influenza Virus Vaccine 2021-10-19 00:00:00 Completed [facility] Influenza Virus Vaccine 2021-10-19 00:00:00 Completed [facility] Influenza Virus Vaccine 2021-10-19 00:00:00 Completed [facility] Influenza Virus Vaccine 2021-10-19 00:00:00 Completed [facility] Influenza Virus Vaccine 2021-10-19 00:00:00 Completed [facility] Influenza Virus Vaccine 2021-10-19 00:00:00 Completed [facility] Influenza Virus Vaccine 2021-10-19 00:00:00 Completed [facility] Influenza Virus Vaccine 2021-10-19 00:00:00 Completed [facility] Influenza Virus Vaccine 2021-10-19 00:00:00 Completed [facility] Influenza Virus Vaccine 2021-10-19 00:00:00 Completed [facility] Influenza Virus Vaccine 2021-10-19 00:00:00 Completed [facility] Influenza Virus Vaccine 2021-10-19 00:00:00 Completed [facility] Influenza Virus Vaccine 2021-10-19 00:00:00 Completed [facility] Influenza Virus Vaccine 2021-10-19 00:00:00 Completed [facility] Influenza Virus Vaccine 2021-10-19 00:00:00 Completed [facility] Influenza Virus Vaccine 2021-10-19 00:00:00 Completed [facility] Influenza Virus Vaccine Unknown Completed [facility] Influenza Virus Vaccine Unknown Completed [facility] Influenza Virus Vaccine Unknown Completed [facility] Influenza Virus Vaccine Unknown Completed [facility] Influenza Virus Vaccine Unknown Completed [facility] Influenza Virus Vaccine Unknown Completed [facility] Influenza Virus Vaccine Unknown Completed [facility] Influenza Virus Vaccine Unknown Completed [facility] Vital Signs Vital Name Observation Time Observation Value Comments S jose m Systolic blood pressure 2023-04-09 21:06:00 95 mm[Hg] [facility] Diastolic blood pressure 2023-04-09 21:06:00 69 mm[Hg] [facility] Heart rate 2023-04-09 21:06:00 80 /min [facility] Body height 2023-04-09 21:06:00 154.9 cm [facility] Body weight 2023-04-09 21:06:00 99.791 kg [facility] BMI 2023-04-09 21:06:00 41.57 kg/m2 [facility] Systolic blood pressure 2023-03-24 20:30:00 116 mm[Hg] [facility] Diastolic blood pressure 2023-03-24 20:30:00 64 mm[Hg] [facility] Heart rate 2023-03-24 20:30:00 69 /min [facility] Body temperature 2023-03-24 20:30:00 36.83 Soo [facility] Respiratory rate 2023-03-24 20:30:00 16 /min [facility] Body weight 2023-03-24 20:30:00 99.791 kg [facility] BMI 2023-03-24 20:30:00 41.57 kg/m2 [facility] Oxygen saturation in Arterial blood by Pulse oximetry 2023-03-24 20:30:00 95 /min [facility] Systolic blood pressure 2023-01-08 17:57:00 135 mm[Hg] [facility] Diastolic blood pressure 2023-01-08 17:57:00 87 mm[Hg] [facility] Heart rate 2023-01-08 17:57:00 99 /min [facility] Body height 2023-01-08 17:57:00 154.9 cm [facility] Body weight 2023-01-08 17:57:00 96.616 kg [facility] BMI 2023-01-08 17:57:00 40.25 kg/m2 [facility] Systolic blood pressure 2023-01-03 14:58:00 120 mm[Hg] [facility] Diastolic blood pressure 2023-01-03 14:58:00 71 mm[Hg] [facility] Heart rate 2023-01-03 14:57:00 90 /min [facility] Body temperature 2023-01-03 14:57:00 36.44 Soo [facility] Respiratory rate 2023-01-03 14:57:00 17 /min [facility] Body height 2023-01-03 14:57:00 154.9 cm [facility] Body weight 2023-01-03 14:57:00 96.616 kg [facility] BMI 2023-01-03 14:57:00 40.25 kg/m2 [facility] Oxygen saturation in Arterial blood by Pulse oximetry 2023-01-03 14:57:00 98 /min [facility] Systolic blood pressure 2022-12-17 19:38:00 127 mm[Hg] [facility] Diastolic blood pressure 2022-12-17 19:38:00 82 mm[Hg] [facility] Heart rate 2022-12-17 19:38:00 83 /min [facility] Body height 2022-12-17 19:38:00 154.9 cm [facility] Body weight 2022-12-17 19:38:00 97.841 kg [facility] BMI 2022-12-17 19:38:00 40.76 kg/m2 [facility] Systolic blood pressure 2022-12-05 15:54:00 125 mm[Hg] [facility] Diastolic blood pressure 2022-12-05 15:54:00 80 mm[Hg] [facility] Heart rate 2022-12-05 15:54:00 65 /min [facility] Body temperature 2022-12-05 15:54:00 36.33 Soo [facility] Respiratory rate 2022-12-05 15:54:00 18 /min [facility] Oxygen saturation in Arterial blood by Pulse oximetry 2022-12-05 15:54:00 97 /min [facility] Body weight 2022-12-05 14:00:00 94.666 kg [facility] BMI 2022-12-05 14:00:00 39.43 kg/m2 [facility] Systolic blood pressure 2022-12-02 20:21:00 130 mm[Hg] [facility] Diastolic blood pressure 2022-12-02 20:21:00 80 mm[Hg] [facility] Heart rate 2022-12-02 20:21:00 83 /min [facility] Respiratory rate 2022-12-02 20:21:00 19 /min [facility] Body height 2022-12-02 20:21:00 154.9 cm [facility] Body weight 2022-12-02 20:21:00 95.709 kg [facility] BMI 2022-12-02 20:21:00 39.87 kg/m2 [facility] Oxygen saturation in Arterial blood by Pulse oximetry 2022-12-02 20:21:00 96 /min [facility] Systolic blood pressure 2022-09-02 20:47:00 125 mm[Hg] [facility] Diastolic blood pressure 2022-09-02 20:47:00 87 mm[Hg] [facility] Heart rate 2022-09-02 20:47:00 70 /min [facility] Body weight 2022-09-02 20:47:00 92.08 kg [facility] BMI 2022-09-02 20:47:00 38.36 kg/m2 [facility] Oxygen saturation in Arterial blood by Pulse oximetry 2022-09-02 20:47:00 98 /min [facility] Body height 2022-08-26 21:52:00 154.9 cm [facility] Body weight 2022-08-26 21:52:00 92.534 kg [facility] BMI 2022-08-26 21:52:00 38.55 kg/m2 [facility] Systolic blood pressure 2022-07-11 15:55:00 135 mm[Hg] [facility] Diastolic blood pressure 2022-07-11 15:55:00 88 mm[Hg] [facility] Heart rate 2022-07-11 15:55:00 79 /min [facility] Body temperature 2022-07-11 15:55:00 36.39 Soo [facility] Respiratory rate 2022-07-11 15:55:00 18 /min [facility] Body height 2022-07-11 15:55:00 154.9 cm [facility] Body weight 2022-07-11 15:55:00 92.942 kg [facility] BMI 2022-07-11 15:55:00 38.72 kg/m2 [facility] Oxygen saturation in Arterial blood by Pulse oximetry 2022-07-11 15:55:00 97 /min [facility] Systolic blood pressure 2022-07-02 15:56:00 160 mm[Hg] [facility] Diastolic blood pressure 2022-07-02 15:56:00 100 mm[Hg] [facility] Heart rate 2022-07-02 15:56:00 79 /min [facility] Body height 2022-07-02 15:56:00 154.9 cm [facility] Body weight 2022-07-02 15:56:00 94.348 kg [facility] BMI 2022-07-02 15:56:00 39.30 kg/m2 [facility] Oxygen saturation in Arterial blood by Pulse oximetry 2022-07-02 15:56:00 98 /min [facility] Systolic blood pressure 2022-05-28 15:03:00 105 mm[Hg] [facility] Diastolic blood pressure 2022-05-28 15:03:00 70 mm[Hg] [facility] Heart rate 2022-05-28 15:03:00 67 /min [facility] Body temperature 2022-05-28 15:03:00 35.72 Soo [facility] Respiratory rate 2022-05-28 15:03:00 17 /min [facility] Body height 2022-05-28 15:03:00 154.9 cm [facility] Body weight 2022-05-28 15:03:00 92.171 kg [facility] BMI 2022-05-28 15:03:00 38.39 kg/m2 [facility] Oxygen saturation in Arterial blood by Pulse oximetry 2022-05-28 15:03:00 95 /min [facility] Systolic blood pressure 2022-05-02 13:31:00 163 mm[Hg] [facility] Diastolic blood pressure 2022-05-02 13:31:00 89 mm[Hg] [facility] Heart rate 2022-05-02 13:30:00 79 /min [facility] Body height 2022-05-02 13:30:00 154.9 cm [facility] Body weight 2022-05-02 13:30:00 97.115 kg [facility] BMI 2022-05-02 13:30:00 40.45 kg/m2 [facility] Oxygen saturation in Arterial blood by Pulse oximetry 2022-05-02 13:30:00 96 /min [facility] Procedures Procedure Date / Time Performed Performing Clinician Source ASSIGNMENT OF BENEFITS 2023-06-13 14:05:27 Docto r Unassigned, [place] [facility] XR FOOT 3+ VW RIGHT 2023-04-09 21:16:56 Roshni Goncalves [facility] XR TIBIA FIBULA 2 VW RIGHT 2023-03-24 21:14:00 Bobby Hernandez [facility] XR ANKLE 3+ VW RIGHT 2023-03-24 21:11:00 Julissa Hernandez [facility] XR FOOT 3+ VW RIGHT 2023-03-24 21:08:00 Ainsley Hernandez [facility] BI SELF-REQUESTED SCREENING TOMOSYNTHESIS BILATERAL 2023-01-27 15:48:52 Rupesh Xiong [facility] ASSIGNMENT OF BENEFITS 2023-01-27 15:13:26 Docto r Unassigned, [place] [facility] BASIC METABOLIC PANEL (NA, K, CL, CO2, GLUCOSE, BUN, CREATININE, CA) 2022-12-25 14:44:00 Moises Olea [facility] CBC WITH DIFF 2022-12-24 18:47:00 [facility] 2022-12-24 18:20:52 Docto r Unassigned, [place] [facility] DSU PRE-OP 2022-12-17 05:01:00 Doctor Unass igned, [place] [facility] DISCLOSURE AND CONSENT, MEDICAL AND SURGICAL PROCEDURES 2022-12-04 05:01:00 Doctor Unassigned, [place] [facility] NOTICE OF BILLING PRACTICES FOR MEDICARE PATIENTS 2022-09-02 19:43:55 Doctor Unassigned, [place] [facility] EXTERNAL PROVIDER RECORDS 2022-08-20 06:01:00 Do ctor Unassigned, [place] [facility] REFERRAL- REQUEST/RESPONSE 2022-07-11 05:01:00 Doctor Unassigned, [place] [facility] REFERRAL- REQUEST/RESPONSE 2022-07-05 05:01:00 Doctor Unassigned, [place] [facility] US ABDOMEN LIMITED 2022-06-27 18:00:00 Marin Maher [facility] CT LUNG CANCER SCREENING 2022-06-12 14:30:00 Jordan Xiong [facility] ASSIGNMENT OF BENEFITS 2022-06-12 13:45:00 Docto r Unassigned, [place] [facility] REFERRAL- REQUEST/RESPONSE 2022-06-11 05:01:00 Doctor Unassigned, [place] [facility] INSURANCE CORRESPONDENCE 2022-05-31 05:01:00 Doc tor Unassigned, [place] [facility] Encounters Start Date/Time End Date/Time Encounter Type Admission Type Attending Clinicians Care Facility Care Department Encounter ID Source 2021-07-15 19:01:18 Emergency [facility] [id number] [facility] 2023-12-03 13:20:00 2023-12-03 13:20:00 Outpatient CAMDEN INGRAM [facility] [id number] [facility] 2023-10-16 09:47:51 2023-10-16 09:47:[address] [facility] [facility] [id number] Clement Hinson 2023-10-15 10:30:55 2023-10-15 10:30:[address] [facility] [id number] Clement Hinson 2023-10-08 10:12:43 2023-10-08 10:12:[address] [facility] [id number] Clement Hinson 2023-10-01 10:00:38 2023-10-01 10:00:38 Outpatient [facility] [id number] Clement Hinson 2023-09-25 00:00:00 2023-09-25 00:00:00 [facility] [id number] 350.1.13.10 4.2.7.2.686 [id number] [facility] 2023-09-24 09:56:39 2023-09-24 09:56:39 Outpatient [facility] [id number] Clement Hinson 2023-06-19 00:00:00 2023-06-19 00:00:00 Patient Secure Msg Doctor Unassigned, [place] [facility] MED[facility] [place] [id number] 350.1.13.10 4.2.7.2.686 [id number] [facility] 2023-06-13 09:06:20 2023-06-13 23:59:00 Outpatient R INGA RUPESH [facility] [id number] [facility] 2023-06-13 09:06:20 2023-06-13 23:59:00 Hospital Encounter Lorifabio Rupesh [address]840.114 350.1.13.10 4.2.7.2.686 [id number] [facility] 2023-06-13 00:00:00 2023-06-13 00:00:00 Orders Only Doctor Unassigned, [place] [facility] 1.840.114 350.1.13.10 4.2.7.2.686 [id number] [facility] 2023-05-13 00:00:00 2023-05-13 00:00:00 Case Management Kemal Melida [facility] 1.840.114 350.1.13.10 4.2.7.2.686 [id number] [facility] 2023-04-14 10:41:03 2023-04-14 10:41:03 Outpatient [facility] [id number] Clement F Sravan 2023-04-10 10:28:08 2023-04-10 10:28:08 Outpatient [facility] 27 Clement Yolanda Sravan 2023-04-09 16:07:17 2023-04-09 23:59:00 Hospital Encounter [facility] 1.840.114 350.1.13.10 4.2.7.2.686 [id number] [facility] 2023-04-09 16:15:00 2023-04-09 16:21:08 Outpatient R SHAN GONCALVES [facility] [id number] [facility] 2023-04-09 16:15:00 2023-04-09 16:21:08 Office Visit Shahana Goncalvesig [facility] 1..840.114 350.1.13.10 4.2.7.2.686 [id number] [facility] 2023-04-04 08:00:00 2023-04-04 08:00:00 Outpatient MARIN WALKER [facility] [id number] [facility] 2023-03-27 09:41:37 2023-03-27 09:41:37 Outpatient [facility] 13 Clementrosa Hinson 2023-03-26 16:18:08 2023-03-26 16:18:[address] [facility] [id number] Clement Hinson 2023-03-25 00:00:00 2023-03-25 00:00:00 Patient Secure Rupesh Ha [facility] 1.2840.114 350.1.13.10 4.2.7.2.686 [id number] [facility] 2023-03-24 15:56:33 2023-03-24 23:59:00 Outpatient R BOBBY HERNANDEZ [facility] [id number] [facility] 2023-03-24 15:56:33 2023-03-24 23:59:00 Hospital Encounter Bobby Hernandez [facility]UNI [facility] OFF[facility] 1.2840.114 350.1.13.10 4.2.7.2.686 [id number] [facility] 2023-03-24 15:56:33 2023-03-24 23:59:00 Hospital Encounter Bobby Hernandez [facility] 1.2840.114 350.1.13.10 4.2.7.2.686 [id number] [facility] 2023-03-24 15:56:33 2023-03-24 23:59:00 Hospital En[facility] Bobby [facility] 1.2840.114 350.1.13.10 4.2.7.2.686 [id number] [facility] 2023-03-24 15:40:00 2023-03-24 16:33:49 Urgent Care Bobby Hernandez Unknown, Attending [facility] 1.2840.114 350.1.13.10 4.2.7.2.686 [id number] [facility] 2023-03-24 09:01:48 2023-03-24 09:01:[address] [facility] [id number] Clement Hinson 2023-03-19 09:41:32 2023-03-19 09:41:32 Outpatient [facility] [id number] Clement Hinson 2023-03-12 14:38:35 2023-03-12 14:38:35 Outpatient [facility] 28 Clement Hinson 2023-03-06 09:59:32 2023-03-06 09:59:32 Outpatient [facility] [address] 2023-02-19 09:00:00 2023-02-19 09:00:00 Outpatient R DAVID KOCH [facility] [id number] [facility] 2023-02-05 00:00:00 2023-02-05 00:00:00 Rupesh Toribio [facility] MED[facility] OFF[facility] BUILDING 1.2.840.114 350.1.13.10 4.2.7.2.686 [id number] 044 [id number] [facility] 2023-02-05 00:00:00 2023-02-05 00:00:00 RefCamden Dorado [facility] PROFESSIO NAL BUILDING 1.2.840.114 350.1.13.10 4.2.7.2.686 [id number] 059 [id number] [facility] 2023-01-27 10:14:06 2023-01-27 23:59:00 Outpatient R RUPESH XIONG [facility] [id number] [facility] 2023-01-27 10:14:06 2023-01-27 23:59:00 [facility] 1.2.840.114 350.1.13.10 4.2.7.2.686 [id number] 800 [id number] [facility] 2023-01-27 00:00:00 2023-01-27 00:00:00 Orders Only Doctor Unassigned, [place] [facility] 1.840.114 350.1.13.10 4.2.7.2.686 [id number] 009 [id number] [facility] 2023-01-13 00:00:00 2023-01-13 00:00:00 Telephone Rachel Conklin [facility] 1.0.114 350.1.13.10 4.2.7.2.686 [id number] 086 [id number] [facility] 2023-01-08 13:15:00 2023-01-08 13:30:00 Office Visit Moises Olea [facility]?FALGUNI [facility] MEDICAL OFFICE BUILDING 1..114 350.1.13.10 4.2.7.2.686 [id number] 198 [id number] [facility] 2023-01-08 13:15:00 2023-01-08 13:15:00 Outpatient R MOISES OLEA [facility] [id number] [facility] 2023-01-03 10:00:00 2023-01-03 10:28:48 Outpatient R MARIN MAHER [facility] [id number] [facility] 2023-01-03 10:00:00 2023-01-03 10:28:48 Office Visit Marin Maher H BUILDING 1..114 350.1.13.10 4.2.7.2.686 [id number] 080 [id number] [facility] 2023-01-03 08:00:00 2023-01-03 08:15:00 It Administrative Assistant Visit [facility] Moises Olea Jayati [facility] 1..114 350.1.13.10 4.2.7.2.686 [id number] [facility] 2023-01-03 00:00:00 2023-01-03 00:00:00 Case Management Marin Maher BUILDING 1.2.840.114 350.1.13.10 4.2.7.2.686 [id number] 080 [id number] [facility] 2023-01-02 08:00:00 2023-01-02 08:00:00 Outpatient R [facility] [id number] [facility] 2022-12-25 10:45:00 2022-12-25 11:00:00 It Administrative Assistant Visit Pob, Adc Lab Main Moises Olea [facility] 1.2.840.114 350.1.13.10 4.2.7.2.686 [id number] [facility] 2022-12-25 10:45:00 2022-12-25 10:45:00 Outpatient R MOISES OLEA [facility] [id number] [facility] 2022-12-25 00:00:00 2022-12-25 00:00:00 Telephone Shan Goncalves [facility] MED[facility] OFF[facility] BUILDING 1.2.840.114 350.1.13.10 4.2.7.2.686 [id number] [facility] 2022-12-24 13:30:00 2022-12-24 13:45:00 It Administrative Assistant Visit Pob, Adc Lab Main Shan Goncalves [facility] BUILDING 1.2.840.114 350.1.13.10 4.2.7.2.686 [id number] 353 [id number] [facility] 2022-12-24 13:30:00 2022-12-24 13:30:00 Outpatient R SHAN GONCALVES CRAIG [facility] [id number] [facility] 2022-12-24 00:00:00 2022-12-24 00:00:00 Orders Only Doctor Unassigned, [place] [facility] 1.2840.114 350.1.13.10 4.2.7.2.686 [id number] 009 [id number] [facility] 2022-12-18 00:00:00 2022-12-18 00:00:00 Telephone Olea [facility] MED[facility] OFF[facility] BUILDING 1.2840.114 350.1.13.10 4.2.7.2.686 [id number] 198 [id number] [facility] 2022-12-17 14:30:00 2022-12-17 14:45:00 Office Visit [facility] OFFICE BUILDING 1.284.114 350.1.13.10 4.2.7.2.686 [id number] 198 [id number] [facility] 2022-12-17 14:30:00 2022-12-17 14:30:00 Outpatient R OLEA [facility] [id number] [facility] 2022-12-17 00:00:00 2022-12-17 00:00:00 Orders Only Doctor Unassigned, [place] [facility] 1.2840.114 350.1.13.10 4.2.7.2.686 [id number] 009 [id number] [facility] 2022-12-05 09:20:00 2022-12-05 12:28:18 Outpatient R MARIN MAHER [facility] [id number] [facility] 2022-12-05 09:20:00 2022-12-05 12:28:18 Office Visit Marin Maher BUILDING 1.2840.114 350.1.13.10 4.2.7.2.686 [id number] 080 [id number] [facility] 2022-12-05 08:00:00 2022-12-05 08:15:00 It Administrative Assistant Visit [facility] Marin Maher [facility] 1.2840.114 350.1.13.10 4.2.7.2.686 [id number] [facility] 2022-12-05 00:00:00 2022-12-05 00:00:00 Case Management Izaiah Buckner [facility] 1..840.114 350.1.13.10 4.2.7.2.686 [id number] 046 [id number] [facility] 2022-12-04 00:00:00 2022-12-04 00:00:00 Telephone Marin Maher [facility] 1.2840.114 350.1.13.10 4.2.7.2.686 [id number] 080 [id number] [facility] 2022-12-04 00:00:00 2022-12-04 00:00:00 Orders Only Doctor Unassigned, [place] [facility] 1.2840.114 350.1.13.10 4.2.7.2.686 [id number] 009 [id number] [facility] 2022-12-02 15:20:00 2022-12-02 15:48:07 Outpatient R CAMDEN SINGH [facility] [id number] [facility] 2022-12-02 15:20:00 2022-12-02 15:48:07 Office Visit Camden Singh [facility] BUILDING 1.840.114 350.1.13.10 4.2.7.2.686 [id number] 059 [id number] [facility] 2022-11-12 00:00:00 2022-11-12 00:00:00 Telephone Marin Maher [facility] BUILDING 1.2.840.114 350.1.13.10 4.2.7.2.686 [id number] 080 [id number] [facility] 2022-10-09 00:00:00 2022-10-09 00:00:00 Telephone Marizol Lenz 1.2.840.114 350.1.13.10 4.2.7.2.686 [id number] 086 [id number] [facility] 2022-09-23 09:30:00 2022-09-23 09:30:00 Outpatient R [facility] [id number] [facility] 2022-09-23 00:00:00 2022-09-23 00:00:00 Telephone Alayna Stauffer [facility] 1.2840.114 350.1.13.10 4.2.7.2.686 [id number] 059 [id number] [facility] 2022-09-19 11:36:40 2022-09-19 23:59:00 Outpatient R ALAYNA STAUFFER [facility] [id number] [facility] 2022-09-19 11:36:40 2022-09-19 23:59:00 Hospital Encounter Alayna Stauffer [facility] 1.2840.114 350.1.13.10 4.2.7.2.686 [id number] [facility] 2022-09-03 00:00:00 2022-09-03 00:00:00 Telephone Marizol Lenz 1.2.840.114 350.1.13.10 4.2.7.2.686 [id number] 086 [id number] [facility] 2022-09-02 15:00:00 2022-09-02 15:26:28 Outpatient R ALAYNA STAUFFER [facility] [id number] [facility] 2022-09-02 15:00:00 2022-09-02 15:26:28 Office Visit Alayna Stauffer [facility] 1.2840.114 350.1.13.10 4.2.7.2.686 [id number] 059 [id number] [facility] 2022-09-02 00:00:00 2022-09-02 00:00:00 Orders Only Doctor Unassigned, [place] [facility] 1.2840.114 350.1.13.10 4.2.7.2.686 [id number] 009 [id number] [facility] 2022-08-29 00:00:00 2022-08-29 00:00:00 Patient Secure Msg Doctor Unassigned, [place] [facility] 1.2840.114 350.1.13.10 4.2.7.2.686 [id number] 019 [id number] [facility] 2022-08-27 00:00:00 2022-08-27 00:00:00 Telephone Marizol Lenz 1.20.114 350.1.13.10 4.2.7.2.686 [id number] 086 [id number] [facility] 2022-08-26 16:00:00 2022-08-26 17:12:34 Outpatient R MOISES OLEA [facility] [id number] [facility] 2022-08-26 16:00:00 2022-08-26 16:30:00 Office Visit Moises Olea [facility]?F[facility]GUNI [facility] MEDICAL OFFICE BUILDING 1.2.114 350.1.13.10 4.2.7.2.686 [id number] 198 [id number] [facility] 2022-08-21 00:00:00 2022-08-21 00:00:00 Telephone Marin Maher BUILDING 1.2840.114 350.1.13.10 4.2.7.2.686 [id number] 080 [id number] [facility] 2022-08-20 00:00:00 2022-08-20 00:00:00 Telephone Meliza Sharp [facility] 1.2840.114 350.1.13.10 4.2.7.2.686 [id number] 086 [id number] [facility] 2022-08-20 00:00:00 2022-08-20 00:00:00 Orders Only Doctor Unassigned, [place] [facility] 1.2840.114 350.1.13.10 4.2.7.2.686 [id number] 009 [id number] [facility] 2022-08-05 10:10:00 2022-08-05 10:10:00 Outpatient THIAGO MCGOWAN [facility] [id number] [facility] 2022-07-23 00:00:00 2022-07-23 00:00:00 Telephone Rupesh Xiong [facility] OFF[facility] BUILDING 1..114 350.1.13.10 4.2.7.2.686 [id number] 044 [id number] [facility] 2022-07-22 00:00:00 2022-07-22 00:00:00 Case Management Mila Niecy [facility] 1.2.114 350.1.13.10 4.2.7.2.686 [id number] 086 [id number] [facility] 2022-07-19 09:00:00 2022-07-19 09:00:00 Outpatient AXEL MERCADO LAUREN [facility] [id number] [facility] 2022-07-19 00:00:00 2022-07-19 00:00:00 Telephone Marizol Lenz ALLAN DAVIDROLO 1.2.114 350.1.13.10 4.2.7.2.686 [id number] 086 [id number] [facility] 2022-07-19 00:00:00 2022-07-19 00:00:00 Patient Secure Marin Matos H BUILDING 1.2.840.114 350.1.13.10 4.2.7.2.686 [id number] 080 [id number] [facility] 2022-07-17 08:45:00 2022-07-17 08:45:00 Outpatient R SHAN GONCALVES [facility] [id number] [facility] 2022-07-17 00:00:00 2022-07-17 00:00:00 Case Management Mila Niecyradha [place] 1.0.114 350.1.13.10 4.2.7.2.686 [id number] 086 [id number] [facility] 2022-07-11 11:00:00 2022-07-11 11:53:01 Outpatient R ANTONIETA XIONGTHIA [facility] [id number] [facility] 2022-07-11 11:00:00 2022-07-11 11:53:01 Office Visit Rupesh Xiong [facility]?FALGUNI PATEL MEDICAL OFFICE BUILDING 1..114 350.1.13.10 4.2.7.2.686 [id number] 044 [id number] [facility] 2022-07-11 00:00:00 2022-07-11 00:00:00 Case Management Marizol Lenz 1.0.114 350.1.13.10 4.2.7.2.686 [id number] 086 [id number] [facility] 2022-07-11 00:00:00 2022-07-11 00:00:00 Orders Only Doctor Unassigned, [place] [facility] 1..114 350.1.13.10 4.2.7.2.686 [id number] 009 [id number] [facility] 2022-07-10 00:00:00 2022-07-10 00:00:00 Telephone Marizol Lenz 1..114 350.1.13.10 4.2.7.2.686 [id number] 086 [id number] [facility] 2022-07-05 00:00:00 2022-07-05 00:00:00 Orders Only Doctor Unassigned, [place] [facility] 1.2840.114 350.1.13.10 4.2.7.2.686 [id number] 009 [id number] [facility] 2022-07-03 00:00:00 2022-07-03 00:00:00 [facility] MED[facility] OFF[facility] BUILDING 1..840.114 350.1.13.10 4.2.7.2.686 [id number] 044 [id number] [facility] 2022-07-02 10:30:00 2022-07-02 11:17:52 Outpatient R CHRISS GUALLPA HOWARD [facility] [id number] [facility] 2022-07-02 10:30:00 2022-07-02 11:17:52 Office Visit Nydia Santos Howard Gene [facility] MEDICAL OFFICE BUILDING 1.284.114 350.1.13.10 4.2.7.2.686 [id number] 092 [id number] [facility] 2022-06-27 12:54:35 2022-06-27 23:59:00 Outpatient R MARIN MAHER [facility] [id number] [facility] 2022-06-27 12:54:35 2022-06-27 23:59:00 Hospital Encounter Gunnar michael [facility] 1.84.114 350.1.13.10 4.2.7.2.686 [id number] [id number] [facility] 2022-06-24 09:30:00 2022-06-24 09:30:00 Outpatient R RUPESH XIONG [facility] [id number] [facility] 2022-06-24 00:00:00 2022-06-24 00:00:00 Case Management Niecy ZaragozaAyaz JERRELL [facility] 1.2840.114 350.1.13.10 4.2.7.2.686 [id number] 086 [id number] [facility] 2022-06-18 09:30:00 2022-06-18 09:30:00 Outpatient R INGA RUPESH [facility] [id number] [facility] 2022-06-14 09:30:00 2022-06-14 09:30:00 Outpatient R INGA RUPESH [facility] [id number] [facility] 2022-06-12 08:47:34 2022-06-12 23:59:00 [facility] [id number] [facility] 2022-06-12 08:47:34 2022-06-12 23:59:00 Hospital Encounter Inga Rupesh [facility] 1.0.114 350.1.13.10 4.2.7.2.686 [id number] [facility] 2022-06-12 00:00:00 2022-06-12 00:00:00 Orders Only Doctor Unassigned, [place] [facility] 1.2840.114 350.1.13.10 4.2.7.2.686 [id number] 009 [id number] [facility] 2022-06-11 00:00:00 2022-06-11 00:00:00 Orders Only Doctor Unassigned, [place] [facility] 1.2840.114 350.1.13.10 4.2.7.2.686 [id number] 009 [id number] [facility] 2022-06-06 00:00:00 2022-06-06 00:00:00 Telephone Rupesh Xiong [facility] 1.840.114 350.1.13.10 4.2.7.2.686 [id number] 044 [id number] [facility] 2022-06-05 00:00:00 2022-06-05 00:00:00 Case Management Niecy Zaragoza 1.840.114 350.1.13.10 4.2.7.2.686 [id number] 086 [id number] [facility] 2022-05-31 00:00:00 2022-05-31 00:00:00 Orders Only Doctor Unassigned, [place] [facility] 1.0.114 350.1.13.10 4.2.7.2.686 [id number] 009 [id number] [facility] 2022-05-29 00:00:00 2022-05-29 00:00:00 Telephone Marin Maher BUILDING 1.0.114 350.1.13.10 4.2.7.2.686 [id number] 080 [id number] [facility] 2022-05-28 09:40:00 2022-05-28 11:19:29 Outpatient R MARIN MAHER [facility] [id number] [facility] 2022-05-28 09:40:00 2022-05-28 11:19:29 Office Visit Marin Maher BUILDING 1.0.114 350.1.13.10 4.2.7.2.686 [id number] 080 [id number] [facility] 2022-05-23 09:00:00 2022-05-23 09:15:00 It Administrative Assistant Visit Lab, Rupesh Sterling [facility]?F[facility]UNI [facility] MED[facility] OFF[facility] BUILDING 1.0.114 350.1.13.10 4.2.7.2.686 [id number] [facility] 2022-05-23 09:00:00 2022-05-23 09:01:34 Outpatient R RUPESH XIONG [facility] [id number] [facility] 2022-05-22 00:00:00 2022-05-22 00:00:00 Telephone [facility]I [facility] BUILDING 1.2.840.114 350.1.13.10 4.2.7.2.686 [id number] 044 [id number] [facility] 2022-05-17 00:00:00 2022-05-17 00:00:00 [facility] MED[facility] OFF[facility] BUILDING 1.2.840.114 350.1.13.10 4.2.7.2.686 [id number] 044 [id number] [facility] 2022-05-16 00:00:00 2022-05-16 00:00:00 Outpatient R RUPESH XIONG [facility] [id number] [facility] 2022-05-09 10:30:00 2022-05-09 10:30:00 Outpatient R JACINTO MANTILLA [facility] [id number] [facility] 2022-05-02 08:30:00 2022-05-02 09:09:38 Office [facility] MEDICAL OFFICE BUILDING 1.2.840.114 350.1.13.10 4.2.7.2.686 [id number] 044 [id number] [facility] 2022-05-02 08:30:00 2022-05-02 09:09:38 Outpatient R INGARUPESH [facility] [id number] [facility] 2022-05-02 08:30:00 2022-05-02 08:30:00 Outpatient R INGA RUPESH [facility] [id number] [facility] 2022-05-02 08:30:00 2022-05-02 08:30:00 Outpatient R RUPESH XIONG [facility] [id number] [facility] 2022-05-01 00:00:00 2022-05-01 00:00:00 Patient Secure Msg Doctor Unassigned, [place] [facility]UNI [facility] BUILDING 1.2.840.114 350.1.13.10 4.2.7.2.686 [id number] 092 [id number] [facility] 2022-04-08 10:20:00 2022-04-08 14:00:59 Office Visit Chriss Guallpa [facility]?FALGUNI [facility] OFF[facility] BUILDING 1.2.840.114 350.1.13.10 4.2.7.2.686 [id number] 092 [id number] [facility] 2022-04-08 10:20:00 2022-04-08 14:00:59 Outpatient R SALONI, CHRISS HOROWITZ [facility] [id number] [facility] 2022-04-08 10:20:00 2022-04-08 14:00:59 Outpatient R SALONI CHRISS HOROWITZ [facility] [id number] [facility] 2022-04-08 10:20:00 2022-04-08 10:20:00 Outpatient R SALONI, CHRISS HOROWITZ [facility] [id number] [facility] 2022-04-02 11:00:00 2022-04-02 11:20:00 Urgent Care Jaxson Simms Brittany [facility]?FAL[facility]UNI [facility] BUILDING 1.2.840.114 350.1.13.10 4.2.7.2.686 [id number] [facility] 2022-04-02 11:00:00 2022-04-02 11:19:31 Outpatient R JAXSON SIMMS [facility] [id number] [facility] 2022-04-02 11:00:00 2022-04-02 11:00:00 Outpatient R JAXSON SIMMS [facility] [id number] [facility] 2022-04-02 00:00:00 2022-04-02 00:00:00 Patient Secure Msg [facility] 1.2.840.114 350.1.13.10 4.2.7.2.686 [id number] 059 [id number] [facility] 2022-03-29 00:00:00 2022-03-29 00:00:00 Telephone Francisco [facility] BUILDING 1.2.840.114 350.1.13.10 4.2.7.2.686 [id number] 059 [id number] [facility] 2022-03-29 00:00:00 2022-03-29 00:00:00 Telephone Benny Hayes [facility] 1.2.840.114 350.1.13.10 4.2.7.2.686 [id number] 059 [id number] [facility] 2022-03-29 00:00:00 2022-03-29 00:00:00 Telephone Francisco [facility] 1.2.840.114 350.1.13.10 4.2.7.2.686 [id number] 059 [id number] [facility] 2022-03-12 07:55:00 2022-03-12 23:59:00 Outpatient R FRANCISCO [facility] [id number] [facility] 2022-03-12 07:55:00 2022-03-12 23:59:00 Outpatient R FRANCISCO [facility] [id number] [facility] 2022-03-12 07:54:11 2022-03-12 07:54:11 Hospital Encounter Francisco [facility] 1.2.840.114 350.1.13.10 4.2.7.2.686 [id number] [id number] [facility] 2022-03-12 07:52:21 2022-03-12 07:53:00 [facility] 1.2.840.114 350.1.13.10 4.2.7.2.686 [id number] [id number] [facility] 2022-03-12 07:52:05 2022-03-12 07:53:00 Hospital Encounter Francisco [facility] 1.2.840.114 350.1.13.10 4.2.7.2.686 [id number] 805 [id number] [facility] 2022-03-12 07:51:46 2022-03-12 07:51:46 Hospital Encounter Francisco [facility] 1.2.840.114 350.1.13.10 4.2.7.2.686 [id number] 805 [id number] [facility] 2022-03-12 07:51:32 2022-03-12 07:51:32 [facility] 1.2.840.114 350.1.13.10 4.2.7.2.686 [id number] [facility] 2022-03-12 00:00:00 2022-03-12 00:00:00 Outpatient R [facility] [id number] [facility] 2022-03-07 00:00:00 2022-03-07 00:00:00 Telephone Rupesh Xiong [facility]?KHUSHBOOJuvenal VIRIELIZABETH MEDICAL OFFICE BUILDING 1.2840.114 350.1.13.10 4.2.7.2.686 [id number] 044 [id number] [facility] 2022-03-07 00:00:00 2022-03-07 00:00:00 Telephone Rupesh Xiong [facility] NGUYEN?[facility] 1.2840.114 350.1.13.10 4.2.7.2.686 [id number] [facility] 2022-02-28 00:00:00 2022-02-28 00:00:00 Orders Only Doctor Unassigned, [place] [facility] 1.2.840.114 350.1.13.10 4.2.7.2.686 [id number] [facility] 2022-02-26 12:15:00 2022-02-26 12:30:00 It Administrative Assistant Visit [facility] Maher [facility] 1.2840.114 350.1.13.10 4.2.7.2.686 [id number] [facility] 2022-02-26 12:15:00 2022-02-26 12:15:00 Outpatient MARIN WALKER [facility] [id number] [facility] 2022-02-26 09:40:00 2022-02-26 10:20:00 Office Visit [place] [facility] 1.2.840.114 350.1.13.10 4.2.7.2.686 [id number] [facility] 2022-02-26 09:40:00 2022-02-26 09:40:00 Outpatient R MARIN MAHER [facility] [id number] [facility] 2022-02-26 09:40:00 2022-02-26 09:40:00 Outpatient R [facility] [id number] [facility] 2022-02-14 14:00:00 2022-02-14 14:34:55 Outpatient R CAMDEN SINGH [facility] [id number] [facility] 2022-02-14 14:00:00 2022-02-14 14:34:55 [facility] 1.2.840.114 350.1.13.10 4.2.7.2.686 [id number] [facility] 2022-02-14 14:00:00 2022-02-14 14:34:55 Outpatient R [facility] [id number] [facility] 2022-02-05 00:00:00 2022-02-05 00:00:00 Patient Secure Msg Doctor Unassigned, [place] [facility] PATRICK?[facility] 1.2.840.114 350.1.13.10 4.2.7.2.686 [id number] [facility] 2022-01-22 09:20:00 2022-01-22 09:20:00 [id number] 2022-01-02 14:20:00 2022-01-02 14:20:00 [facility] [id number] 2021-12-31 10:21:49 2021-12-31 23:59:00 Outpatient R UNKNOWN, ATTENDING [facility] [id number] [facility] 2021-12-31 10:21:49 2021-12-31 23:59:00 Outpatient R UNKNOWN, ATTENDING [facility] [id number] [facility] 2021-11-29 09:20:00 2021-12-19 12:24:30 Outpatient R LANETTE LEIVA [facility] [id number] [facility] 2021-11-29 09:20:00 2021-12-19 12:24:30 Outpatient R LANETTE LEIVA [facility] [id number] [facility] 2021-12-06 00:00:00 2021-12-06 00:00:00 Telephone [facility] 1..840.114 350.1.13.10 4.2.7.2.686 [id number] [facility] 2021-12-04 00:00:00 2021-12-04 00:00:00 Patient Secure Msg Doctor Unassigned, [place] [facility] 1.840.114 350.1.13.10 4.2.7.2.686 [id number] [facility] 2021-12-03 08:30:00 2021-12-03 10:13:27 Outpatient R LANETTE LEIVA [facility] [id number] [facility] 2021-12-03 08:30:00 2021-12-03 08:45:00 It Administrative Assistant Visit Lab, Ang - Db AbbieFaisalLanette Juvenal [facility] OFFICE [facility] 1..840.114 350.1.13.10 4.2.7.2.686 [id number] [facility] 2021-12-03 08:30:00 2021-12-03 08:30:00 Outpatient R LANETTE LEIVA [facility] [id number] [facility] 2021-11-29 08:30:00 2021-11-29 09:58:10 Outpatient R LANETTE LEIVA [facility] [id number] [facility] 2021-11-29 08:30:00 2021-11-29 09:58:10 Outpatient R LANETTE LEIVA [facility] [id number] [facility] 2021-11-29 00:00:00 2021-11-29 00:00:00 Orders Only Doctor Unassigned, [place] [facility] 1.840.114 350.1.13.10 4.2.7.2.686 [id number] [facility] 2021-10-26 08:30:00 2021-10-26 08:30:00 Outpatient R RIOSADÁN [facility] [id number] [facility] 2021-10-23 00:00:00 2021-10-23 00:00:00 Telephone Chriss Guallpa [facility] 1.2.840.114 350.1.13.10 4.2.7.2.686 [id number] [facility] 2021-10-08 08:15:00 2021-10-08 08:15:00 Outpatient TONIA GOMEZ [facility] [id number] [facility] 2021-10-03 09:30:00 2021-10-03 09:30:00 Outpatient CHRISS STEVENSON [facility] [id number] [facility] 2021-10-02 08:40:00 2021-10-02 09:55:41 Office Visit Chriss Guallpa [facility] 1.2.840.114 350.1.13.10 4.2.7.2.686 [id number] [facility] 2021-10-02 08:40:00 2021-10-02 09:55:41 Outpatient CHRISS STEVENSON [facility] [id number] [facility] 2021-10-02 08:40:00 2021-10-02 08:40:00 Outpatient CHRISS STEVENSON CHRISS [facility] [id number] [facility] 2021-09-20 10:37:25 2021-09-20 23:59:00 Hospital Encounter Tonia Askew Qiangjun [facility] 1..840.114 350.1.13.10 4.2.7.2.686 [id number] [facility] 2021-09-20 10:36:52 2021-09-20 10:36:52 Outpatient R AZARKIKITONIA [facility] [id number] [facility] 2021-09-20 10:36:52 2021-09-20 10:36:52 Hospital Encounter AzarKikiTonia [facility] 1.2840.114 350.1.13.10 4.2.7.2.686 [id number] [facility] 2021-08-28 10:00:00 2021-08-28 10:00:00 Outpatient CHRISS STEVENSON [facility] [id number] [facility] 2021-08-03 00:00:00 2021-08-03 00:00:00 Telephone Rupesh Xiong [facility] 1.84.114 350.1.13.10 4.2.7.2.686 [id number] [facility] 2021-07-31 13:50:29 2021-07-31 14:20:29 Office Visit Azar Tonia [facility] 1..114 350.1.13.10 4.2.7.2.686 [id number] [facility] 2021-07-31 14:00:00 2021-07-31 14:00:00 Outpatient R TONIA ASKEW [facility] [id number] [facility] 2021-07-31 14:00:00 2021-07-31 14:00:00 Outpatient R TONIA ASKEW [facility] [id number] [facility] 2021-07-31 00:00:00 2021-07-31 00:00:00 Orders Only Doctor Unassigned, [place] [facility] 1.84.114 350.1.13.10 4.2.7.2.686 [id number] [facility] 2021-07-17 13:07:51 2021-07-17 23:59:00 Hospital Encounter Fernando Al [facility] 1.2840.114 350.1.13.10 4.2.7.2.686 [id number] [facility] 2021-07-17 13:06:48 2021-07-17 13:06:48 Outpatient R MISHA SISIJOSE [facility] [id number] [facility] 2021-07-17 13:06:48 2021-07-17 13:06:48 Hospital Encounter Fernando Al [facility] 1.840.114 350.1.13.10 4.2.7.2.686 [id number] [facility] 2021-07-10 00:00:00 2021-07-10 00:00:00 Outpatient R MISHAFERNANDO SAPP [facility] [id number] [facility] 2021-07-06 13:00:00 2021-07-06 13:00:00 Outpatient R ADÁN RIOS [facility] [id number] [facility] 2021-06-26 14:15:00 2021-06-26 14:29:24 Outpatient R MISHA FERNANDO [facility] [id number] [facility] 2021-06-26 14:06:30 2021-06-26 14:29:24 It Administrative Assistant Visit [facility] Fernando Al [facility] 1..114 350.1.13.10 4.2.7.2.686 [id number] [facility] 2021-06-26 12:58:40 2021-06-26 14:01:04 Office Visit Fernando Al Anand Vilaschandr a [facility] 1..114 350.1.13.10 4.2.7.2.686 [id number] [facility] 2021-06-21 09:28:09 2021-06-21 09:59:44 Office Visit Care, Ang Primary Rodrigo [facility] 1.2.840.114 350.1.13.10 4.2.7.2.686 [id number] [facility] 2021-06-21 09:30:00 2021-06-21 09:30:00 Outpatient Xuan [facility] [id number] [facility] 2021-06-18 09:56:52 2021-06-18 10:26:07 Telemedici ne Visit Care, Hima Primary Rodrigo [facility] 1.2.840.114 350.1.13.10 4.2.7.2.686 [id number] [facility] 2021-06-18 10:00:00 2021-06-18 10:00:00 Outpatient Xuan [facility] [id number] [facility] 2021-06-11 13:20:00 2021-06-11 23:59:00 Hospital Encounter Sidra Benites [facility] 1.2.840.114 350.1.13.10 4.2.7.2.686 [id number] [facility] 2021-06-11 00:00:00 2021-06-11 00:00:00 Outpatient Xuan [facility] [id number] [facility] 2021-05-25 00:00:00 2021-05-25 00:00:00 Telephone Rodrigo [facility] 1.2.840.114 350.1.13.10 4.2.7.2.686 [id number] [facility] 2021-05-25 00:00:00 2021-05-25 00:00:00 Telephone Rodrigo [facility] 1.2.840.114 350.1.13.10 4.2.7.2.686 [id number] [facility] 2021-05-24 09:29:21 2021-05-24 11:26:05 Office Visit Care, Sidra Newman [facility] 1.2840.114 350.1.13.10 4.2.7.2.686 [id number] [facility] 2021-05-24 09:30:00 2021-05-24 09:30:00 Outpatient SIDRA MAN [facility] [id number] [facility] 2021-05-24 00:00:00 2021-05-24 00:00:00 Orders Only Doctor Unassigned, [place] [facility] 1.840.114 350.1.13.10 4.2.7.2.686 [id number] [facility] 2021-05-17 09:30:00 2021-05-17 09:30:00 Outpatient SIDRA MAN [facility] [id number] [facility] 2021-05-17 00:00:00 2021-05-17 00:00:00 Orders Only Doctor Unassigned, [place] [facility] 1.840.114 350.1.13.10 4.2.7.2.686 [id number] [facility] 2021-05-01 00:00:00 2021-05-01 00:00:00 Patient Outreach WilderAyaka Jonny Guadalupe 1.840.114 350.1.13.10 4.2.7.2.686 [id number] [facility] 2021-04-17 00:00:00 2021-04-17 00:00:00 Patient Outreach WilderAyaka Amadeo Guadalupe 1.840.114 350.1.13.10 4.2.7.2.686 [id number] [facility] 2021-02-14 00:00:00 2021-02-14 00:00:00 Patient Outreach Madhu Carlson 1.2.840.114 350.1.13.10 4.2.7.2.686 [id number] [facility] 2021-02-13 00:00:00 2021-02-13 00:00:00 Patient Outreach Madhu Carlson 1.2.840.114 350.1.13.10 4.2.7.2.686 [id number] [facility] 2021-02-09 00:00:00 2021-02-09 00:00:00 Patient Outreach Ayaka Hdzayaz Guadalupe 1.2.840.114 350.1.13.10 4.2.7.2.686 [id number] [facility] 2021-02-05 00:00:00 2021-02-05 00:00:00 Patient Outreach Madhu Carlson 1.2.840.114 350.1.13.10 4.2.7.2.686 [id number] [facility] 2021-01-30 00:00:00 2021-01-30 00:00:00 Patient Outreach Madhu Carlson 1.2.840.114 350.1.13.10 4.2.7.2.686 [id number] [facility] 2021-01-29 00:00:00 2021-01-29 00:00:00 Patient Outreach Ayaka Hdzayaz Allan [place] 1.2.840.114 350.1.13.10 4.2.7.2.686 [id number] [facility] 2021-01-29 00:00:00 2021-01-29 00:00:00 Transition of Care Lena Tannery [place] 1.2.840.114 350.1.13.10 4.2.7.2.686 [id number] [facility] 2021-01-25 17:09:00 2021-01-27 12:08:00 Inpatient HUNG JACKMAN [facility] [id number] [facility] 2021-01-25 17:09:00 2021-01-27 12:08:00 Hospital Encounter Ishan Martinez Xiang [facility] 1.2.840.114 350.1.13.10 4.2.7.2.686 [id number] [facility] 2021-01-25 17:09:00 2021-01-27 12:08:00 Inpatient HUNG JACKMAN [facility] [id number] [facility] 2021-01-25 00:00:00 2021-01-25 00:00:00 Orders Only Doctor Unassigned, [place] [facility] 1.2.840.114 350.1.13.10 4.2.7.2.686 [id number] [facility] Notes Date/Time Note Provider Source 2023-09-25 15:58:15 [id number] [id number]- 11T15:58:15 Images from the original note were not included.Please review and sign if appropriate.amLODIPine 10 mg tabletSig: Take 1 tablet by mouth in the morning.Disp: 90 tablet Refills: 0Start: 09/25/2023lass: eRXNon-formulary For: Left-sided weaknessLast ordered: 7 months ago (02/05/2023) by RUSS Alvesalcium Channel Blockers Owajwu8409/25/2023 03:50 PMProtocol Details Valid encounter within last 12 monthsTo be filled at: [facility] [place], [place] - [address]dylan VisitsDate Type Provider Dept1 Office Visit Rupesh Xiong FNP [facility]05/02/22 Office Visit Rupesh Xiong FNP [facility] MedShowing recent visits within past 540 days with a meds authorizing provider and meeting all other requirementsFuture AppointmentsNo visits were found meeting these conditions.Showing future appointments within next 150 days with a meds authorizing provider and meeting all other requirements [id number] encounter [id number]:01:48Telephone encounter [id number] .[id number] for patient [id number] C-CDA narrative [id number] A Pena MA[address] [id number] [id number]: 01:[id number]|1.2.84 [id number] 81055 Christie De Leon MA [facility]"
--- NOTE | 2023-10-16 16:30 | EDPHYS ---
Physician Documentation [facility] Name: Felisha Laird Age: 53 yrs Sex: Female : 1970 Arrival Date: 10/16/2023 Time: 15:46 Bed 8 Private MD: ED Physician Norm Potter HPI: 10/16 16:16 This 53 yrs old Female presents to ER via Ambulatory with complaints of Hand sole Injury. 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 - Social history:: Smoking status: Patient denies any tobacco usage or history of. ROS: 16:20 Constitutional: Negative for fever, chills, and weight loss, Eyes: Negative for injury, sole pain, redness, and discharge, ENT: Negative for injury, pain, and discharge, Neck: Negative for injury, pain, and swelling, Cardiovascular: Negative for chest pain, palpitations, and edema, Respiratory: Negative for shortness of breath, cough, wheezing, and pleuritic chest pain, Abdomen/GI: Negative for abdominal pain, nausea, vomiting, diarrhea, and constipation, Back: Negative for injury and pain, : Negative for injury, bleeding, discharge, and swelling, Skin: Negative for injury, rash, and discoloration, Neuro: Negative for headache, weakness, numbness, tingling, and seizure, Psych: Negative for depression, anxiety, suicide ideation, homicidal ideation, and hallucinations, Allergy/Immunology: Negative for hives, rash, and allergies, Endocrine: Negative for neck swelling, polydipsia, polyuria, polyphagia, and marked weight changes, Hematologic/Lymphatic: Negative for swollen nodes, abnormal bleeding, and unusual bruising, 16:20 MS/extremity: Positive for decreased range of motion, pain, tenderness, of the lateral aspect of left hand and medial aspect of left wrist, Exam: 16:20 Constitutional: This is a well developed, well nourished patient who is awake, alert, sole and in no acute distress. Head/Face: Normocephalic, atraumatic. Eyes: Pupils equal round and reactive to light, extra-ocular motions intact. Lids and lashes normal. Conjunctiva and sclera are non-icteric and not injected. Cornea within normal limits. Periorbital areas with no swelling, redness, or edema. ENT: Nares patent. No nasal discharge, no septal abnormalities noted. Tympanic membranes are normal and external auditory canals are clear. Oropharynx with no redness, swelling, or masses, exudates, or evidence of obstruction, uvula midline. Mucous membranes moist. Neck: Trachea midline, no thyromegaly or masses palpated, and no cervical lymphadenopathy. Supple, full range of motion without nuchal rigidity, or vertebral point tenderness. No Meningismus. Chest/axilla: Normal chest wall appearance and motion. Nontender with no deformity. No lesions are appreciated. Cardiovascular: Regular rate and rhythm with a normal S1 and S2. No gallops, murmurs, or rubs. Normal PMI, no JVD. No pulse deficits. Respiratory: Lungs have equal breath sounds bilaterally, clear to auscultation and percussion. No rales, rhonchi or wheezes noted. No increased work of breathing, no retractions or nasal flaring. Abdomen/GI: Soft, non-tender, with normal bowel sounds. No distension or tympany. No guarding or rebound. No evidence of tenderness throughout. Back: No spinal tenderness. No costovertebral tenderness. Full range of motion. Skin: Warm, dry with normal turgor. Normal color with no rashes, no lesions, and no evidence of cellulitis. Neuro: Awake and alert, GCS 15, oriented to person, place, time, and situation. Cranial nerves II-XII grossly intact. Motor strength 5/5 in all extremities. Sensory grossly intact. Cerebellar exam normal. Normal gait. Psych: Awake, alert, with orientation to person, place and time. Behavior, mood, and affect are within normal limits. 16:20 Musculoskeletal/extremity: ROM: full active range of motion, full passive range of motion, limited active range of motion due to pain, limited passive range of motion due to pain, Circulation is intact in all extremities. Sensation intact. Compartment Syndrome exam of affected extremity: is normal. Tendon exam: specific tendon testing normal through active and passive range of motion Vital Signs: 15:52 BP 147 / 95; Pulse 73; Resp 18; Temp 98.5; Pulse Ox 95% ; Weight 99.79 kg; Height 5 ft. db 1 in. ; Pain 6/10; 15:52 Body Mass Index 41.57 (99.79 kg, 154.94 cm) db 15:52 Pain Scale: Adult db MDM: 15:50 Patient medically screened. sole 16:26 Differential diagnosis: dislocation, closed fracture, contusion, tendonitis. Data [facility] reviewed: vital signs, nurses notes, radiologic studies, plain films. Consideration of Admission/Observation Escalation of care including admission/observation considered. I considered the following discharge prescriptions or medication management in the emergency department Medications were administered in the Emergency Department. See MAR. Independent interpretation of the following test(s) in the Emergency Department X-Ray: My interpretation is no fx, no dislocation. Test considered but Not performed: Labs: no labs. Care significantly affected by the following chronic conditions: Hypertension, chiari mal, high cholesterol, migraine. Counseling: I had a detailed discussion with the patient and/or guardian regarding the historical points, exam findings, and any diagnostic results supporting the discharge/admit diagnosis, radiology results, the need for outpatient follow up, for definitive care, a family practitioner, a orthopedic surgeon. 10/16 16:18 Order name: Wrist Left (3 View) XRAY [facility] 10/16 15:51 Order name: Cardiac monitoring; Complete Time: 16:05 [facility] 10/16 15:51 Order name: O2 Sat Monitoring; Complete Time: 16:06 [facility] 10/16 16:16 Order name: Splint - Wrist; Complete Time: 16:44 [facility] 10/16 16:16 Order name: Ice pack; Complete Time: 16:44 [facility] Administered Medications: 16:04 Not Given (Patient Refused): ns 0.9% 1000 ml IV at 1 bolus Per protocol; 1000 mL bolus cp4 16:59 Drug: Ibuprofen PO 600 mg PO once Route: PO; cp4 17:11 Follow up: Response: No adverse reaction cp4 16:59 Drug: Hydrocodone-Acetaminophen PO (7.5 mg-325 mg) 1 tabs PO once Route: PO; cp4 17:11 Follow up: Response: No adverse reaction cp4 Disposition Summary: 10/16/23 16:29 Discharge Ordered Notes: Location: Home sole Problem: new sole Symptoms: have improved sole Condition: Stable sole Diagnosis - Fall on same level, unspecified sole - Contusion of left hand sole - Contusion of left wrist sole Followup: sole - With: Private Physician - When: 2 - 3 days - Reason: Recheck today's complaints, Continuance of care, Re-evaluation by your physician Followup: sole - With: Fabian Lee MD - When: 2 - 3 days - Reason: Recheck today's complaints, Continuance of care, Re-evaluation by your physician Discharge Instructions: - Discharge Summary Sheet sole - Hand Contusion sole - Fall Prevention in the Home, Adult sole - Wrist Pain, Adult sole - Wrist Splint or Brace, Adult sole - Hand Contusion, Hoyy-aw-Jont sole - Wrist Pain, Adult, Zfiv-ly-Hdvs sole - Wrist Sprain, Adult [facility] Forms: - Medication Reconciliation Form [facility] - Thank You Letter [facility] - Antibiotic Education sole - Prescription Opioid Use sole - Patient Portal Instructions [facility] - Leadership Thank You Letter [facility] Prescriptions: - acetaminophen-codeine 300-30 mg Oral tablet - take 2 tablet ORAL route every 6 hours as needed for pain; 20 tablet; Refills: sole 0, Product Selection Permitted - Motrin IB 200 mg Oral tablet - take 1 tablet ORAL route every 6 hours As needed as needed with food; 30 sole tablet; Refills: 0, Product Selection Permitted Signatures: Dispatcher [employer] EDNorm Galdamez MD MD cha Benton, Danielle, RN RN Sharlene Nielsen cp4 Corrections: (The following items were deleted from the chart) 15:57 15:56 PMHx: L inner leg good blood flow; db db 15:57 15:56 PMHx: L inner leg good blood flow; db db 15:57 15:56 PMHx: L inner leg good blood flow; db db 16:05 15:51 EKG - Nurse/Tech ordered. [facility] cp4 16:05 15:51 IV Saline Lock ordered. [facility] cp4 16:05 15:51 Labs collected and sent ordered. sole cp4 16:05 15:51 Oxygen Per Protocol ordered. sole cp4 16:27 15:52 Chest Single View+RAD.RAD.BRZ ordered. EDMS EDMS 17:00 15:52 Head C Spine MPR Wo Con+CT.RAD.BRZ ordered. EDMS EDMS
--- NOTE | 2023-10-16 16:30 | ER ---
Nurse's Notes [facility] Name: Felisha Laird Age: 53 yrs Sex: Female : 1970 Arrival Date: 10/16/2023 Time: 15:46 Bed 8 Private MD: Diagnosis: Fall on same level, unspecified;Contusion of left hand;Contusion of left wrist Presentation: 10/16 15:52 Chief complaint: Patient states: PATIENT STATES TRIPPED AND FELL ABOUT 2 WEEKS AGO AND db HAS LEFT WRIST PAIN THAT HAS INCREASED WITH NERVE PAIN AND TINGLING. PATIENT HAS NEURO INTACT AND HAS FULL MOVEMENT OF WRIST. Coronavirus screen: Vaccine status: Patient reports being unvaccinated. Client denies travel out of the [place] in the last 14 days. At this time, the client does not indicate any symptoms associated with coronavirus-19. Ebola Screen: Patient negative for fever greater than or equal to 101.5 degrees Fahrenheit, and additional compatible Ebola Virus Disease symptoms Patient denies exposure to infectious person. Patient denies travel to an Ebola-affected area in the 21 days before illness onset. No symptoms or risks identified at this time. Initial Sepsis Screen: Does the patient meet any 2 criteria? No. Patient's initial sepsis screen is negative. Does the patient have a suspected source of infection? No. Patient's initial sepsis screen is negative. Risk Assessment: Do you want to hurt yourself or someone else? Patient reports no desire to harm self or others. Onset of symptoms was October 02, 2023. 15:52 Method Of Arrival: Ambulatory db 15:52 Acuity: TESSA 4 db Triage Assessment: 15:56 General: Appears in no apparent distress. comfortable, Behavior is calm, cooperative. db Pain: Complains of pain in left arm. Neuro: Level of Consciousness is awake, alert, obeys commands, Oriented to person, place, time, situation. Musculoskeletal: Circulation, motion, and sensation intact. Capillary refill Range of motion: intact in all extremities, Reports pain in LEFT WRIST. 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 - Social history:: Smoking status: Patient denies any tobacco usage or history of. Screenin:06 [facility] ED Fall Risk Assessment (Adult) History of falling in the last 3 months, cp4 including since admission Yes- single mechanical fall (1 pt) Confusion or Disorientation No (0 pts) Intoxicated or Sedated No (0 pts) Impaired Gait No (0 pts) Mobility Assist Device Used No (0 pt) Altered Elimination No (0 pt) Score/Fall Risk Level 0 - 2 = Low Risk Oriented to surroundings, Maintained a safe environment, Educated pt \T\ family on fall prevention, incl call for assistance when getting out of bed, Assessed \T\ reinforced patient's understanding of fall precautions, Provided non-skid footwear, Hourly rounding (assess needs \T\ fall precautionary measures) done. Abuse screen: Denies threats or abuse. Nutritional screening: No deficits noted. Tuberculosis screening: No symptoms or risk factors identified. Assessment: 16:06 Reassessment: Patient states she just wants an xray of her right wrist and hand. cp4 General: Appears in no apparent distress. Behavior is calm, cooperative, appropriate for age. Vital Signs: 15:52 BP 147 / 95; Pulse 73; Resp 18; Temp 98.5; Pulse Ox 95% ; Weight 99.79 kg; Height 5 ft. db 1 in. ; Pain 6/10; 15:52 Body Mass Index 41.57 (99.79 kg, 154.94 cm) db 15:52 Pain Scale: Adult db ED Course: 15:48 Patient arrived in ED. ra3 15:50 Norm Potter MD is Attending Physician. sole 15:55 Triage completed. db 15:56 Arm band placed on. db 15:59 Sharlene Rico is Primary Nurse. cp4 16:06 Bed in low position. Call light in reach. Side rails up X 1. cp4 16:06 Patient did not have IV access during this emergency room visit. cp4 16:28 Wrist Left (3 View) XRAY In Process Unspecified. EDMS 16:28 Fabian Lee MD is Referral Physician. sole Administered Medications: 16:04 Not Given (Patient Refused): ns 0.9% 1000 ml IV at 1 bolus Per protocol; 1000 mL bolus cp4 16:59 Drug: Ibuprofen PO 600 mg PO once Route: PO; cp4 17:11 Follow up: Response: No adverse reaction cp4 16:59 Drug: Hydrocodone-Acetaminophen PO (7.5 mg-325 mg) 1 tabs PO once Route: PO; cp4 17:11 Follow up: Response: No adverse reaction cp4 Medication: 16:06 VIS not applicable for this client. cp4 Outcome: 16:29 Discharge ordered by MD. whipple 17:12 Patient left the ED. cp4 Signatures: Dispatcher [employer] EDNorm Galdamez MD MD cha Benton, Danielle, RN RN Sharlene Nielsen cp4 Linda Salmon ra3 Corrections: (The following items were deleted from the chart) 15:56 15:52 Onset of symptoms was October 16, 2023 db db 15:57 15:56 PMHx: L inner leg good blood flow; db db 15:57 15:56 PMHx: L inner leg good blood flow; db db 15:57 15:56 PMHx: L inner leg good blood flow; db db
--- NOTE | 2023-10-16 17:41 | RAD REPORT ---
EXAM DESCRIPTION: RAD - Wrist Left 3 View - 10/16/2023 4:26 pm CLINICAL HISTORY: PAIN COMPARISON: No comparisons TECHNIQUE: Left wrist, 3 views. FINDINGS: No acute fracture. There is no dislocation or periosteal reaction noted. No suspicious bon y finding. No foreign body or other soft tissue abnormality. IMPRESSION: Negative left wrist examination.
== END ==
LOC: ER 15:46
DX: S60.222A Contusion of left hand, initial encounter (principal); S60.212A Contusion of left wrist, initial encounter; W18.30XA Fall on same level, unspecified, initial encounter; Z88.5 Allergy status to narcotic agent